=== PATIENT | female | born 1945 | race American Indian/Alaskan Native ===

== ENCOUNTER 2021-05-08 09:18 | Inpatient (IN) | payer MEDICAID, MEDICARE ==
--- NOTE | 2021-05-08 09:26 | Emergency Department Report ---
ED Psych HPI - General Stated Complaint: SUICIDAL Time Seen by Provider: 05/08/21 09:23 Source: patient, EMS Mode of arrival: Ambulatory Limitations: No Limitations - History of Present Illness Initial Comments: Chief complaint: Suicide attempt HPI: This is a 75-year-old female with history of epilepsy, hypertension, GERD, CVA, obesity who presents with suicide attempt, acute depression. Patient told SNF nurse that she wanted to . She was found with a cord around around her neck twice during the night. THe first attempt, patient had the cord of the call button around her neck. Second attempt: she had an electric cord around her neck. She was recently started on mood stabilizer Seroquel. Patient currently resides at [facility]. Patient denies any pain or discomfort. Patient is evasive when asked if she desires to . She currently denies suicide attempt. I have reviewed medication list provided by [facility]. I spoke with granddaughter [phone] Mrs Salgado, She is POA. She provided the following history. February 2021: Patient experienced CVA. Mar 18, 2021 - 2021 Admitted to [facility], Had GI problems with vomiting and diarrhea. Stroke occurred while admitted to hospital. Cerebellar CVA. Has had recurrent UTI including MRSA. Normal EGD. While admitted to the hospital, patient had mood changes. She had paranoia. She thought that someone was in the closet. She began calling out the names of relatives. She was discharged from [facility] May 05. She has b een at [facility] for the past 3 days. MD Complaint: suicidal ideation, altered mental status -: days(s) (2 days) Associated Psychiatric Symptoms: depression, suicidal ideation Improves With: none Worsens With: none Associated Symptoms: denies other symptoms If Self Harm: has acted on plan - Related Data Allergies Allergy/AdvReac Type Severity Reaction Status Date / Time cheese Allergy Hives Verified 05/08/21 15:38 Milk Containing Products Allergy Hives Verified 05/08/21 15:38 tree nut Allergy Hives Verified 05/08/21 15:38 ED Review of Systems ROS: Stated complaint: SUICIDAL Other details as noted in HPI Comment: All other systems reviewed and negative Constitutional: denies: chills, fever, malaise Respiratory: denies: cough, shortness of breath Cardiovascular: denies: chest pain Psychiatric: depression, suicidal thoughts ED Past Medical Hx - Past Medical History Previous Medical History?: Yes Hx Hypertension: Yes Hx GERD: Yes Hx Seizures: Yes - Surgical History Past Surgical History?: No - Family History Family history: other (Noncontributory to this presentation) - Social History Smoking Status: Never Smoker Substance Use Type: None ED Physical Exam - General General appearance: alert, in no apparent distress - Head Head exam: Present: atraumatic, normocephalic - Eye Eye exam: Present: normal appearance - ENT ENT exam: Present: mucous membranes moist - Neck Neck exam: Present: normal inspection, full ROM - Respiratory Respiratory exam: Present: normal lung sounds bilaterally. Absent: respiratory distress, wheezes, rales, rhonchi - Cardiovascular Cardiovascular Exam: Present: regular rate, normal rhythm, normal heart sounds. Absent: systolic murmur, diastolic murmur, rubs, gallop - GI/Abdominal GI/Abdominal exam: Present: soft, normal bowel sounds. Absent: distended, tenderness, guarding, rebound - Extremities Exam Extremities exam: Present: normal inspection - Neurological Exam Neurological exam: Present: alert, oriented X3 - Psychiatric Psychiatric exam: Present: depressed, flat affect, suicidal ideation - Skin Skin exam: Present: warm, dry, intact, normal color. Absent: rash ED Course Vital Signs 05/08/21 05/08/21 05/08/21 09:26 13:24 14:00 Temperature 97.9 F Pulse Rate 85 Respiratory 16 Rate Blood Pressure 121/62 Blood Pressure 170/90 [Left] O2 Sat by Pulse 98 100 100 Oximetry 05/08/21 05/08/21 05/08/21 15:00 15:46 16:00 Temperature Pulse Rate Respiratory Rate Blood Pressure 113/61 120/67 Blood Pressure [Left] O2 Sat by Pulse 100 100 99 Oximetry 05/08/21 05/08/21 05/08/21 17:00 18:27 19:00 Temperature Pulse Rate 80 Respiratory 14 Rate Blood Pressure 116/57 116/57 116/57 Blood Pressure [Left] O2 Sat by Pulse 89 100 Oximetry 05/08/21 05/08/21 05/08/21 20:00 21:00 22:00 Temperature Pulse Rate 92 H 81 81 Respiratory 16 16 13 Rate Blood Pressure 116/57 137/68 127/82 Blood Pressure [Left] O2 Sat by Pulse Oximetry 05/08/21 05/09/21 05/09/21 23:00 00:00 01:00 Temperature Pulse Rate 81 83 85 Respiratory 12 15 18 Rate Blood Pressure 138/70 134/82 118/65 Blood Pressure [Left] O2 Sat by Pulse Oximetry 05/09/21 05/09/21 05/09/21 02:00 03:00 04:00 Temperature Pulse Rate 84 94 H 95 H Respiratory 18 13 16 Rate Blood Pressure 126/77 126/77 71/55 Blood Pressure [Left] O2 Sat by Pulse Oximetry 05/09/21 05/09/21 05/09/21 05:00 06:00 07:00 Temperature Pulse Rate 90 93 H 92 H Respiratory 19 13 19 Rate Blood Pressure 124/54 136/57 152/68 Blood Pressure [Left] O2 Sat by Pulse 98 100 100 Oximetry 05/09/21 07:36 Temperature Pulse Rate 93 H Respiratory 23 Rate Blood Pressure Blood Pressure 137/70 [Left] O2 Sat by Pulse 100 Oximetry - Reevaluation(s) Reevaluation #1: 05/08/21 11:29 Patient is currently crying uncontrollably. I have ordered 1 mg Ativan iv 05/08/21 11:30 ED Medical Decision Making - Lab Data Result diagrams: 05/08/21 09:37 05/08/21 09:37 - EKG Data 05/08/21 13:00 - Medical Decision Making Ms. Tovar presents with acute depression paranoia new changes for the last several weeks since hospitalization. [facility]. CBC reflects mild anemia without leukocytosis. Acet aminophen at therapeutic levels. I do not suspect acetaminophen toxicity since patient has been under medical supervision since February. 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 She is not eligible for geriatric psychiatric unit. Patient will be admitted to the hospital service for acute encephalopathy, UTI. Patient has had several outbursts while observed over the 22-hour. Concern for delirium due to infection. Critical care attestation.: If time is entered above; I have spent that time in minutes in the direct care of this critically ill patient, excluding procedure time. ED Disposition Clinical Impression: Acute encephalopathy, UTI (urinary tract infection) Disposition: ADMITTED INPATIENT Is pt being admited?: Yes Does the pt Need Aspirin: No Condition: Stable
[2021-05-08 10:01] LABS: Basophils % (Auto) 0.2 % (0.0-1.8); Eosinophils # (Auto) 0.2 K/mm3 (0.0-0.4); Eosinophils % (Auto) 3.2 % (0.0-4.3); Hemoglobin 8.6 gm/dl (10.1-14.3); Lymphocytes % (Auto) 17.8 % (13.4-35.0); Mean Corpuscular HGB Conc 32 % (30-34); Mean Corpuscular Volume 88 fl (79-97); Monocytes # (Auto) 0.4 K/mm3 (0.0-0.8); Monocytes % (Auto) 6.8 % (0.0-7.3); Platelet Count 322 K/mm3 (140-440); Red Blood Count 3.08 M/mm3 (3.65-5.03); Red Cell Distribution Width 16.3 % (13.2-15.2)
[2021-05-08 10:19] LABS: Calcium 8.8 mg/dL (8.4-10.2)
[2021-05-08] MEDS: LORazepam 2 MG/ML VIAL IV ONE ×2 (13:26→14:00)
[2021-05-08 19:42] LABS: Amphetamine Screen,Urine Negative; Benzodiazepines Screen,Urine Negative; Cocaine Screen,Urine Negative; Methadone Screen,Urine Negative; Opiate Screen,Urine Negative
[2021-05-08 19:54] LABS: Bacteria,Urine 1+ /HPF (Negative); Bilirubin,Urine NEG (Negative); Blood,Urine SM (Negative); Color,Urine Yellow (Yellow); Mucus,Urine 2+ /HPF; Urobilinogen,Urine < 2.0 mg/dL (<2.0)
[2021-05-08 19:55] LABS: WBC,Urine > 182.0 /HPF (0.0-6.0)
[2021-05-08 20:02] LABS: Cannabinoid Screen,Urine PRESUMPTIVE POSITIVE
[2021-05-09] MEDS ORDERED: ZIPRASIDONE MESYLATE 20 MG VIAL IM ONE (04:17)
--- NOTE | 2021-05-09 04:19 | Emergency Department Report ---
Blank Doc - Documentation Documentation: Patient has become more restless and agitated tonight. She had previously been given Ativan 1 mg. I did review the patient's chart. She has no contraindication to an antipsychotic and Geodon was ordered. I reviewed her labs. She does have evidence of urinary tract infection so cephalexin was also initiated.
[2021-05-09] MEDS: cephALEXin 500 MG CAP PO SCH ×2 (04:44→09:59)
[2021-05-09] MEDS ORDERED: ACETAMINOPHEN 325 MG TAB PO PRN ×3 (09:28→17:07)
[2021-05-09] MEDS ORDERED: ONDANSETRON 4 MG/2 ML INJ IV PRN ×2 (09:28→17:07)
[2021-05-09] MEDS ORDERED: DICYCLOMINE 10 MG CAP PO PRN (09:35)
[2021-05-09] MEDS ORDERED: SENNOSIDES 8.6 MG TAB PO PRN (09:39)
--- NOTE | 2021-05-09 09:43 | History and Physical Report ---
History of Present Illness Date of examination: 05/09/21 Date of admission: 05/09/2021 Chief complaint: Attempted suicide x2 sepsis with UTI History of present illness: 75-year-old female with past history of hypertension, GERD, obesity, CVA in recent past February 2021 and now was recently transferred to [facility] halfway facility. Patient transferred there on May 05. After being there 1 to 2 days patient was noted to have an extension cord around neck saying that she wanted to kill herself. After a brief episode of redirection patient then tried to put another cord around her neck and therefore was sent out for suicidal ideations. Upon presentation to the ED patient was found to have significant pyuria and UTI and therefore was admitted to medicine services for treatment of UTI and physical exam for possible psych placement. Patient at pres ent will mention her name and just start crying out. Patient was saying she sees her mother and that she still here and will just burst out in tears. Patient recently started on Seroquel 25 mg upon presentation to the halfway facility because of similar behavior. Patient unable to tell me whether she is depressed. Unable to really tell me where she is. She will say she feels okay and then starts crying. Patient denies chest pain denies any shortness of breath no fever chills no nausea vomiting. However very poor historian Past History Past Medical History: GERD, hypertension, stroke, other (Psychiatric disorder cognitive impairment) Past Surgical History: No surgical history Social history: other ([facility] facility recent hospitalization March 16 positive for marijuana). denies: alcohol abuse Family history: other (Unknown at this time.) Medications and Allergies Allergies Allergy/AdvReac Type Severity Reaction Status Date / Time cheese Allergy Hives Verified 05/08/21 15:38 Milk Containing Products Allergy Hives Verified 05/08/21 15:38 tree nut Allergy Hives Verified 05/08/21 15:38 Home Medications Medication Instructions Recorded Confirmed Last Taken Type Acetaminophen [Tylenol] 650 mg PO Q6H PRN 05/09/21 05/09/21 Unknown History Amlodipine Besylate [Norvasc] 5 mg PO DAILY 05/09/21 05/09/21 Unknown History Atorvastatin [Lipitor Tab] 40 mg PO QHS 05/09/21 05/09/21 Unknown History Cyanocobalamin (Vitamin B-12) 500 mcg PO DAILY 05/09/21 05/09/21 Unknown History [Vitamin B-12] Dicyclomine [Bentyl] 10 mg PO BID PRN 05/09/21 05/09/21 Unknown History HYDROcodone/ACETAMINOPHEN 5 - 325 mg PO Q12H PRN 05/09/21 05/09/21 Unknown History [Hydrocodone-Acetamin 2.5-325] Linezolid [Zyvox] 600 mg PO BID 05/09/21 05/09/21 Unknown History Melatonin [Melatonin 3MG TAB] 3 mg PO HS PRN 05/09/21 05/09/21 Unknown History Pantoprazole [Protonix] 40 mg PO BID 05/09/21 05/09/21 Unknown History QUEtiapine [SEROquel] 25 mg PO HS 05/09/21 05/09/21 Unknown History Sennosides [Senna] 8.6 mg PO HS PRN 05/09/21 05/09/21 Unknown History Sucralfate [Carafate] 1 gm PO ACHS 05/09/21 05/09/21 Unknown History Trospium Chloride [Trospium 60 mg PO DAILY 05/09/21 05/09/21 Unknown History Chloride ER] cephALEXin [Keflex] 500 mg PO Q6HR 05/09/21 05/09/21 Unknown History hydrALAZINE [Apresoline TAB] 10 mg PO Q6H 05/09/21 05/09/21 Unknown History levETIRAcetam [Keppra TAB] 500 mg PO BID 05/09/21 05/09/21 Unknown History Active Meds: Active Medications Acetaminophen (Acetaminophen 325 Mg Tab) 650 mg PO Q4H PRN PRN Reason: Pain MILD(1-3)/Fever >100.5/SEE Acetaminophen (Acetaminophen 325 Mg Tab) 650 mg PO Q6H PRN PRN Reason: Pain, Mild (1-3) Hydrocodone Bitart/Acetaminophen (Hydrocodone/Acetaminophen 5-325 Mg Tab) 2 each PO Q6H PRN PRN Reason: Pain, Moderate (4-6) Amlodipine Besylate (Amlodipine 5 Mg Tab) 5 mg PO DAILY [facility] Cephalexin (Cephalexin 500 Mg Cap) 500 mg PO TID MADISYN; Protocol Last Admin: 05/09/21 04:44 Dose: 500 mg Dicyclomine HCl (Dicyclomine 10 Mg Cap) 10 mg PO BID PRN PRN Reason: stomach cramps Docusate Sodium (Docusate Sodium 100 Mg Cap) 100 mg PO BID [facility] Hydralazine HCl (Hydralazine 10 Mg Tab) 10 mg PO Q6H [facility] Sodium Chloride (Nacl 0.9% 1000 Ml) 1,000 mls @ 100 mls/hr IV DIRECT [facility] Ceftriaxone Sodium (Rocephin/Ns 1 Gm/50 Ml) 1 gm in 50 mls @ 100 mls/hr IV Q24H [facility]; Protocol Stop: 05/11/21 10:29 Levetiracetam (Levetiracetam 500 Mg Tab) 500 mg PO BID [facility] Linezolid (Linezolid 600 Mg Tab) 600 mg PO BID [facility]; Protocol Stop: 05/13/21 23:59 Lorazepam (Lorazepam 2 Mg/Ml Vial) 1 mg IV Q6H PRN PRN Reason: Agitation Ondansetron HCl (Ondansetron 4 Mg/2 Ml Inj) 4 mg IV Q8H PRN PRN Reason: Nausea And Vomiting Pantoprazole Sodium (Pantoprazole 40 Mg Tab) 40 mg PO BID [facility] Quetiapine Fumarate (Quetiapine 25 Mg Tab) 25 mg PO HS [facility] Senna (Sennosides 8.6 Mg Tab) 8.6 mg PO HS PRN PRN Reason: Constipation Sodium Chloride (Sodium Chloride 0.9% 10 Ml Flush Syringe) 10 ml IV BID [facility] Sodium Chloride (Sodium Chloride 0.9% 10 Ml Flush Syringe) 10 ml IV PRN PRN PRN Reason: LINE FLUSH Review of Systems Constitutional: other (Very difficult to obtain secondary to mood and cognitive impairment.) Ears, nose, mouth and throat: no ear pain, no mouth pain Cardiovascular: no chest pain, no orthopnea, no palpitations, no rapid/irregular heart beat, no syncope, no lightheadedness, no shortness of breath, no dyspnea on exertion Respiratory: no cough, no cough with sputum, no hemoptysis Gastrointestinal: no abdominal pain, no nausea, no change in bowel habits, no early satiety Genitourinary Female: dysuria, other (Burning upon urination.) Musculoskeletal: low back pain, no neck pain, no shooting arm pain, no shooting leg pain, no redness of joints, no morning stiffness, no muscle cramps, no myalgias Neurological: weakness, lack of coordination, no head injury, no transient paralysis, no paralysis, no parathesias, no numbness, no tingling, no seizures, no syncope, no tremors, no ataxia, no vertigo, no convulsions, no aphasia, no change in speech, no change in mentation, no memory loss, no loss of vision, no hearing difficulties, no paralysis, no spasticity Psychiatric: anxiety, change in sleep habits, suicidal ideation, hallucinations, anhedonia, sadness/tearfullness, no disorientation, no depression, no hopelessness, no anxiety attacks, no difficulties concentrating, no confusion Endocrine: no excessive thirst, no nocturia, no high blood sugars Exam - Constitutional Vitals: Temp Pulse Resp BP Pulse Ox 97.9 F 93 H 23 137/70 100 05/08/21 09:26 05/09/21 07:36 05/09/21 07:36 05/09/21 07:36 05/09/21 07:36 General appearance: Present: no acute distress, well-nourished - EENT Eyes: Present: PERRL ENT: hearing intact, clear oral mucosa - Neck Neck: Present: supple, normal ROM - Respiratory Respiratory effort: normal Respiratory: bilateral: CTA - Cardiovascular Heart Sounds: Present: S1 & S2. Absent: rub, click - Extremities Extremities: pulses symmetrical, No edema Peripheral Pulses: within normal limits - Abdominal General gastrointestinal: Present: soft, non-tender, non-distended, normal bowel sounds Female genitourinary: Present: normal - Integumentary Integumentary: Present: clear, warm, dry - Musculoskeletal Musculoskeletal: gait normal, strength equal bilaterally - Psychiatric Psychiatric: appropriate mood/affect, intact judgment & insight - Neurologic Neurologic: CNII-XII intact, moves all extremities Results - Labs CBC & Chem 7: 05/08/21 09:37 05/08/21 09:37 Labs: Laboratory Last Values WBC 5.5 K/mm3 (4.5-11.0) 05/08/21 09:37 RBC 3.08 M/mm3 (3.65-5.03) L 05/08/21 09:37 Hgb 8.6 gm/dl (10.1-14.3) L 05/08/21 09:37 Hct 27.0 % (30.3-42.9) L 05/08/21 09:37 MCV 88 fl (79-97) 05/08/21 09:37 MCH 28 pg (28-32) 05/08/21 09:37 MCHC 32 % (30-34) 05/08/21 09:37 RDW 16.3 % (13.2-15.2) H 05/08/21 09:37 Plt Count 322 K/mm3 (140-440) 05/08/21 09:37 Lymph % (Auto) 17.8 % (13.4-35.0) 05/08/21 09:37 [place] % (Auto) 6.8 % (0.0-7.3) 05/08/21 09:37 Eos % (Auto) 3.2 % (0.0-4.3) 05/08/21 09:37 Baso % (Auto) 0.2 % (0.0-1.8) 05/08/21 09:37 Lymph # (Auto) 1.0 K/mm3 (1.2-5.4) L 05/08/21 09:37 [place] # (Auto) 0.4 K/mm3 (0.0-0.8) 05/08/21 09:37 Eos # (Auto) 0.2 K/mm3 (0.0-0.4) 05/08/21 09:37 Baso # (Auto) 0.0 K/mm3 (0.0-0.1) 05/08/21 09:37 Seg Neutrophils % 72.0 % (40.0-70.0) H 05/08/21 09:37 Seg Neutrophils # 4.0 K/mm3 (1.8-7.7) 05/08/21 09:37 Sodium 143 mmol/L (137-145) 05/08/21 09:37 Potassium 3.3 mmol/L (3.6-5.0) L 05/08/21 09:37 Chloride 105.2 mmol/L (98-107) 05/08/21 09:37 Carbon Dioxide 22 mmol/L (22-30) 05/08/21 09:37 Anion Gap 19 mmol/L 05/08/21 09:37 BUN 25 mg/dL (7-17) H 05/08/21 09:37 Creatinine 1.8 mg/dL (0.6-1.2) H 05/08/21 09:37 Estimated GFR 28 ml/min 05/08/21 09:37 BUN/Creatinine Ratio 14 % 05/08/21 09:37 Glucose 112 mg/dL (65-100) H 05/08/21 09:37 Calcium 8.8 mg/dL (8.4-10.2) 05/08/21 09:37 Urine Color Yellow (Yellow) 05/08/21 19:05 Urine Turbidity Turbid (Clear) 05/08/21 19:05 Urine pH 6.0 (5.0-7.0) 05/08/21 19: Ur Specific [place] 1.013 (1.003-1.030) 05/08/21 19: Urine Protein 100 mg/dl mg/dL (Negative) 05/08/21 19: Urine Glucose (UA) Neg mg/dL (Negative) 05/08/21 19: Urine Ketones Neg mg/dL (Negative) 05/08/21 19: Urine Blood Sm (Negative) 05/08/21 19: Urine Nitrite Neg (Negative) 05/08/21 19: Urine Bilirubin Neg (Negative) 05/08/21 19: Urine Urobilinogen < 2.0 mg/dL (<2.0) 05/08/21 19:05 Ur Leukocyte Esterase Mod (Negative) 05/08/21 19:05 Urine WBC (Auto) > 182.0 /HPF (0.0-6.0) H 05/08/21 19: Urine RBC (Auto) 31.0 /HPF (0.0-6.0) 05/08/21 19:05 Urine Bacteria (Auto) 1+ /HPF (Negative) 05/08/21 19: Urine WBC Clumps 3+ /HPF 05/08/21 19: Urine Mucus 2+ /HPF 05/08/21 19: Salicylates 0.3 mg/dL (2.8-20.0) L 05/08/21 09:37 Urine Opiates Screen Negative 05/08/21 19:05 Urine Methadone Screen Negative 05/08/21 19: Acetaminophen 12.2 ug/mL (10.0-30.0) 05/08/21 09:37 Ur Barbiturates Screen Negative 05/08/21 19:05 Ur Phencyclidine Scrn Negative 05/08/21 19:05 Ur Amphetamines Screen Negative 05/08/21 19:05 U Benzodiazepines Scrn Negative 05/08/21 19:05 Urine Cocaine Screen Negative 05/08/21 19:05 U Marijuana (THC) Screen Presumptive positive 05/08/21 19:05 Drugs of Abuse Note Disclamer 05/08/21 19:05 Plasma/Serum Alcohol < 0.01 % (0-0.07) 05/08/21 09:37 Assessment and Plan Advance Directives: No (Cognitive impairment.) VTE prophylaxis?: Chemical - Patient Problems (1) Suicidal ideations Current Visit: Yes Status: Acute Plan to address problem: Patient currently with suicidal ideations. Has both visual and auditory hallucinations at this time. Recently started on Seroquel however has only been 1 to 2 days. Patient here for suicide attempt x2. Would have been unable to carry out this in nursing facility where she was would have been very difficult. Patient unable to tell me whether she sat now says she just wants to talk to her family. Patient remains on 1013. Being followed by psychiatry. (2) Acute encephalopathy Current Visit: Yes Status: Acute Plan to address problem: Most likely secondary to underlying UTI. In combination with mental illness and potential dementia given the severity of her cognitive impairment Treat underlying etiology of UTI with Rocephin. Will require most likely urine culture because patient gives history of having urinary tract infection in the past. -Blood culture -Urine culture -Of note we will continue Zyvox. We are not really sure why patient was being treated with Zyvox. Just transferred from one hospital to halfway facility. This information was not passed on. We will continue this I do not see lesions on current skin that would think patient will have staph infection therefore we will continue this for 5 days. And will obtain old records to find out why patient was being treated. And for how long the requirements may be. (3) UTI (urinary tract infection) Current Visit: Yes Status: Acute Plan to address problem: Rocephin 1 g I IV Continue to follow culture data blood in urine. (4) History of CVA (cerebrovascular accident) Current Visit: Yes Status: Acute Plan to address problem: At present risk factors well controlled. Will obtain lipid panel. Patient blood pressure 133/71 without antihypertensives. Which will initiate antihypertensive with pressures are supportive We will continue antilipid therapy for now. (5) Hypertension Current Visit: Yes Status: Acute Plan to address problem: Patient maintains adequate control despite no blood pressure medicines at this time. We will reintroduce as blood pressure supports Will start amlodipine 5 mg now and titrate accordingly. (6) Hyperlipidemia Current Visit: Yes Status: Acute Plan to address problem: Atorvastatin 20 mg daily. (7) Seizure disorder Current Visit: Yes Status: Acute Plan to address problem: No recent seizure no evidence of potential postictal state. Keppra 500 mg twice daily.
[2021-05-09] MEDS: amLODIPine 5 MG TAB PO SCH (10:13)
[2021-05-09] MEDS: DOCUSATE SODIUM 100 MG CAP PO SCH ×2 (10:13→23:01)
[2021-05-09] MEDS: PANTOPRAZOLE 40 MG TAB PO SCH ×2 (10:13→22:47)
[2021-05-09] MEDS: levETIRAcetam 500 MG TAB PO SCH ×2 (10:13→22:45)
--- NOTE | 2021-05-09 10:40 | Consultation ---
History of Present Illness - Reason for Consult Consult date: 05/09/21 Reason for consult: suicide attempt - Chief Complaint Chief complaint: Attempted suicide x2 sepsis with UTI - History of Present Psychiatric Illness HPI: This is a 75-year-old female with history of epilepsy, hypertension, GERD, CVA, obesity who presents with suicide attempt, acute depression. Patient told SNF nurse that she wanted to . She was found with a cord around around her neck twice during the night. THe first attempt, patient had the cord of the call button around her neck. Second attempt: she had an electric cord around her neck. She was recently started on mood stabilizer Seroquel. Patient currently resides at [facility]. Patient denies any pain or discomfort. Patient is evasive when asked if she desires to . She currently denies suicide attempt. The patient was seen today. She is a 75y/o female who presented from [facility] for attempting to commit suicide. The patient suffers from depression. During my evaluation, the patient has staff at bedside attempting to start an IV. She is crying. She appears anxious and afraid. She is confused. PAST PSYCHIATRIC HISTORY: unable to obtain PAST MEDICAL HISTORY: None reported Family Psychiatric History None reported SOCIAL HISTORY Unable to obtain ROS: Unable to obtain MENTAL STATUS EXAMINATION Unable to obtain Assessment and Plan (1) Major Depressive Disorder Treatment Plan 1013 Start Klonopin 0.25mg po BID x 3 days Start Remeron 7.5mg po qhs Start Lexapro 5mg po daily Agree with prn lorazepam and seroquel qhs Risks, benefits and alternatives of medications discussed with the patient, questions answered and consent obtained from patient. PSYCHOTHERAPY: Supportive psychotherapy provided MEDICAL: Per primary team DELIRIUM PRECAUTIONS: Please re-orient patient frequently, keep lights on during the day, and minimize benzodiazepines and opiates as these medications could worsen patient's confusion. 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 Please contact with any questions and/or concerns. Case staffed with Dr. Lowery Medications and Allergies Allergies Allergy/AdvReac Type Severity Reaction Status Date / Time cheese Allergy Hives Verified 05/08/21 15:38 Milk Containing Products Allergy Hives Verified 05/08/21 15:38 tree nut Allergy Hives Verified 05/08/21 15:38 Home Medications Medication Instructions Recorded Confirmed Last Taken Type Acetaminophen [Tylenol] 650 mg PO Q6H PRN 05/09/21 05/09/21 Unknown History Amlodipine Besylate [Norvasc] 5 mg PO DAILY 05/09/21 05/09/21 Unknown History Atorvastatin [Lipitor Tab] 40 mg PO QHS 05/09/21 05/09/21 Unknown History Cyanocobalamin (Vitamin B-12) 500 mcg PO DAILY 05/09/21 05/09/21 Unknown History [Vitamin B-12] Dicyclomine [Bentyl] 10 mg PO BID PRN 05/09/21 05/09/21 Unknown History HYDROcodone/ACETAMINOPHEN 5 - 325 mg PO Q12H PRN 05/09/21 05/09/21 Unknown History [Hydrocodone-Acetamin 2.5-325] Linezolid [Zyvox] 600 mg PO BID 05/09/21 05/09/21 Unknown History Melatonin [Melatonin 3MG TAB] 3 mg PO HS PRN 05/09/21 05/09/21 Unknown History Pantoprazole [Protonix] 40 mg PO BID 05/09/21 05/09/21 Unknown History QUEtiapine [SEROquel] 25 mg PO HS 05/09/21 05/09/21 Unknown History Sennosides [Senna] 8.6 mg PO HS PRN 05/09/21 05/09/21 Unknown History Sucralfate [Carafate] 1 gm PO ACHS 05/09/21 05/09/21 Unknown History Trospium Chloride [Trospium 60 mg PO DAILY 05/09/21 05/09/21 Unknown History Chloride ER] cephALEXin [Keflex] 500 mg PO Q6HR 05/09/21 05/09/21 Unknown History hydrALAZINE [Apresoline TAB] 10 mg PO Q6H 05/09/21 05/09/21 Unknown History levETIRAcetam [Keppra TAB] 500 mg PO BID 05/09/21 05/09/21 Unknown History Active Meds: Active Medications Acetaminophen (Acetaminophen 325 Mg Tab) 650 mg PO Q4H PRN PRN Reason: Pain MILD(1-3)/Fever >100.5/SEE Hydrocodone Bitart/Acetaminophen (Hydrocodone/Acetaminophen 5-325 Mg Tab) 2 each PO Q6H PRN PRN Reason: Pain, Moderate (4-6) Amlodipine Besylate (Amlodipine 5 Mg Tab) 5 mg PO DAILY [facility] Last Admin: 05/09/21 10:13 Dose: 5 mg Dicyclomine HCl (Dicyclomine 10 Mg Cap) 10 mg PO BID PRN PRN Reason: stomach cramps Docusate Sodium (Docusate Sodium 100 Mg Cap) 100 mg PO BID [facility] Last Admin: 05/09/21 10:13 Dose: 100 mg Hydralazine HCl (Hydralazine 10 Mg Tab) 10 mg PO Q6H [facility] Sodium Chloride (Nacl 0.9% 1000 Ml) 1,000 mls @ 100 mls/hr IV DIRECT MADISYN Ceftriaxone Sodium (Rocephin/Ns 1 Gm/50 Ml) 1 gm in 50 mls @ 100 mls/hr IV Q24H [facility]; Protocol Stop: 05/11/21 12:29 Levetiracetam (Levetiracetam 500 Mg Tab) 500 mg PO BID [facility] Last Admin: 05/09/21 10:13 Dose: 500 mg Linezolid (Linezolid 600 Mg Tab) 600 mg PO BID [facility]; Protocol Stop: 05/13/21 10:59 Lorazepam (Lorazepam 2 Mg/Ml Vial) 1 mg IV Q6H PRN PRN Reason: Agitation Ondansetron HCl (Ondansetron 4 Mg/2 Ml Inj) 4 mg IV Q8H PRN PRN Reason: Nausea And Vomiting Pantoprazole Sodium (Pantoprazole 40 Mg Tab) 40 mg PO BID [facility] Last Admin: 05/09/21 10:13 Dose: 40 mg Quetiapine Fumarate (Quetiapine 25 Mg Tab) 25 mg PO HS [facility] Senna (Sennosides 8.6 Mg Tab) 8.6 mg PO HS PRN PRN Reason: Constipation Sodium Chloride (Sodium Chloride 0.9% 10 Ml Flush Syringe) 10 ml IV BID [facility] Last Admin: 05/09/21 10:14 Dose: 10 ml Sodium Chloride (Sodium Chloride 0.9% 10 Ml Flush Syringe) 10 ml IV PRN PRN PRN Reason: LINE FLUSH Sucralfate (Sucralfate 1 Gm/10 Ml Oral Liqd) 1 gm PO ACHS [facility] Mental Status Exam - Vital signs Last Vital Signs Temp 97.9 F 05/08/21 09:26 Pulse 93 H 05/09/21 07:36 Resp 23 05/09/21 07:36 BP 137/70 05/09/21 07:36 Pulse Ox 100 05/09/21 07:36 Results Result Diagrams: 05/08/21 09:37 05/08/21 09:37 Abnormal lab results 05/08/21 Range/Units 19:05 Urine WBC (Auto) > 182.0 H (0.0-6.0) /HPF All other labs normal.
[2021-05-09] MEDS: LORazepam 2 MG/ML VIAL IV PRN ×2 (10:41→18:26)
[2021-05-09] MEDS: hydrALAZINE 10 MG TAB PO SCH ×3 (11:30→22:58)
--- NOTE | 2021-05-09 11:37 | Event Note ---
Date: 05/09/21 vss , labs unremarkable , assessed by psych , recommend inpatient psych
[2021-05-09] MEDS: SUCRALFATE 1 GM/10 ML ORAL LIQD PO SCH ×3 (12:09→22:49)
[2021-05-09] MEDS: LINEZOLID 600 MG TAB PO SCH ×2 (12:58→22:58)
[2021-05-09] MEDS: clonazePAM 0.5 MG TAB PO SCH ×2 (12:59→22:49)
[2021-05-09] MEDS: cefTRIAXone/NS 1 GM/50 ML 1 GM/50 ML BAG IV SCH (13:00)
[2021-05-09] MEDS ORDERED: PRAVASTATIN 40 MG TAB PO ONE (14:10)
[2021-05-09] MEDS: ESCITALOPRAM 10 MG TAB PO SCH (16:08)
[2021-05-09] MEDS ORDERED: QUEtiapine 25 MG TAB PO SCH (22:00)
[2021-05-09] MEDS: HEPARIN 5,000 UNIT/1 ML VIAL SUB-Q SCH (22:29)
[2021-05-09] MEDS: MIRTAZAPINE 15 MG TAB PO SCH (22:47)
[2021-05-10 04:59] LABS: Hematocrit 25.2 % (30.3-42.9); Hemoglobin 8.2 gm/dl (10.1-14.3); Mean Corpuscular HGB Conc 33 % (30-34); Mean Corpuscular Volume 88 fl (79-97); Platelet Count 299 K/mm3 (140-440); Red Blood Count 2.87 M/mm3 (3.65-5.03); Red Cell Distribution Width 16.2 % (13.2-15.2)
[2021-05-10 05:14] LABS: Calcium 8.4 mg/dL (8.4-10.2)
[2021-05-10] MEDS: SODIUM CHLORIDE 0.9% 1000 ML 1,000 ML IV SCH ×2 (05:16→23:49)
[2021-05-10] MEDS: hydrALAZINE 10 MG TAB PO SCH ×4 (05:19→21:57)
[2021-05-10 05:58] LABS: Anisocytosis 1+; Basophils % (Manual) 0 % (0.0-1.8); Total Cells Counted 100
[2021-05-10 05:59] LABS: Platelet Estimate Consistent w Auto; Target Cells 1+
[2021-05-10] MEDS: ESCITALOPRAM 10 MG TAB PO SCH (09:02)
[2021-05-10] MEDS: LINEZOLID 600 MG TAB PO SCH ×2 (09:02→21:57)
[2021-05-10] MEDS: clonazePAM 0.5 MG TAB PO SCH ×2 (09:04→21:57)
[2021-05-10] MEDS: levETIRAcetam 500 MG TAB PO SCH ×2 (09:04→21:57)
[2021-05-10] MEDS: SUCRALFATE 1 GM/10 ML ORAL LIQD PO SCH ×4 (09:04→21:57)
[2021-05-10] MEDS: PANTOPRAZOLE 40 MG TAB PO SCH ×2 (09:04→21:57)
[2021-05-10] MEDS: DOCUSATE SODIUM 100 MG CAP PO SCH ×2 (09:05→22:00)
[2021-05-10] MEDS: HEPARIN 5,000 UNIT/1 ML VIAL SUB-Q SCH ×2 (09:05→21:58)
[2021-05-10] MEDS: amLODIPine 5 MG TAB PO SCH (09:06)
--- NOTE | 2021-05-10 11:44 | Progress Note ---
Assessment and Plan Assessment and plan: #Suicidal ideations Patient currently with suicidal ideations. Has both visual and auditory hallucinations at this time. Recently started on Seroquel however has only been 1 to 2 days. Patient here for suicide attempt x2. Would have been unable to carry out this in nursing fac ility where she was would have been very difficult. Patient unable to tell me whether she sat now says she just wants to talk to her family. Patient remains on 1013. Psychiatry consulted appreciate recs. #Acute metabolic encephalopathy #Acute cystitis with hematuria Most likely secondary to underlying UTI. In combination with mental illness and potential dementia given the severity of her cognitive impairment Treat underlying etiology of UTI with Rocephin (complete on 05/11/2021) -Blood culture and urine culture pending -Of note we will continue Zyvox. We are not really sure why patient was being treated with Zyvox. Just transferred from one hospital to alf facility. This information was not passed on. We will continue this I do not see lesions on current skin that would think patient will have staph infection therefore we will continue this for 5 days. And will obtain old records to find out why patient was being treated. And for how long the requirements may be. #History of CVA (cerebrovascular accident) At present risk factors well controlled. Will obtain lipid panel. Patient blood pressure 133/71 without antihypertensives. Which will initiate antihypertensive with pressures are supportive We will continue lipid therapy for now. #Hypertension #Hyperlipidemia Continue amlodipine 5 mg daily and atorvastatin 20 mg daily Continue to monitor #Seizure disorder No recent seizure no evidence of potential postictal state. Continue Keppra 500 mg twice daily. #Advanced care planning -Disease education conducted, care plan discussed, diagnoses discussed, prognosis discussed, and patient acknowledges understanding with care plan -Time: +30 min Disposition Plan: Continue medical management Total Time Spent with Patient (Minutes): 30 minutes History Interval history: No acute events overnight. Hospitalist Physical - Constitutional Vitals: Temp Pulse Resp BP Pulse Ox 98.1 F 83 16 156/74 99 05/10/21 05:11 05/10/21 05:19 05/10/21 05:11 05/10/21 09:07 05/10/21 05:11 General appearance: Present: no acute distress, well-nourished, obese - EENT Eyes: Present: PERRL, EOM intact ENT: hearing intact, clear oral mucosa - Neck Neck: Present: supple, normal ROM - Respiratory Respiratory effort: normal Respiratory: bilateral: CTA - Cardiovascular Rhythm: regular Heart Sounds: Present: S1 & S2 - Extremities Extremities: no ischemia, pulses intact, pulses symmetrical, No edema, normal temperature, normal color Peripheral Pulses: within normal limits - Abdominal General gastrointestinal: soft, non-tender, non-distended, normal bowel sounds - Integumentary Integumentary: Present: clear, warm, dry - Psychiatric Psychiatric: cooperative - Neurologic Neurologic: other (Alert and oriented x1) - Allied Health Allied health notes reviewed: nursing Results - Labs CBC & Chem 7: 05/10/21 04:19 05/10/21 04:19 Labs: Laboratory Last Values WBC 5.6 K/mm3 (4.5-11.0) 05/10/21 04:19 RBC 2.87 M/mm3 (3.65-5.03) L 05/10/21 04:19 Hgb 8.2 gm/dl (10.1-14.3) L 05/10/21 04:19 Hct 25.2 % (30.3-42.9) L 05/10/21 04:19 MCV 88 fl (79-97) 05/10/21 04:19 MCH 29 pg (28-32) 05/10/21 04:19 MCHC 33 % (30-34) 05/10/21 04:19 RDW 16.2 % (13.2-15.2) H 05/10/21 04:19 Plt Count 299 K/mm3 (140-440) 05/10/21 04:19 Lymph % (Auto) 17.8 % (13.4-35.0) 05/08/21 09:37 [place] % (Auto) 6.8 % (0.0-7.3) 05/08/21 09:37 Eos % (Auto) 3.2 % (0.0-4.3) 05/08/21 09:37 Baso % (Auto) 0.2 % (0.0-1.8) 05/08/21 09:37 Lymph # (Auto) 1.0 K/mm3 (1.2-5.4) L 05/08/21 09:37 [place] # (Auto) 0.4 K/mm3 (0.0-0.8) 05/08/21 09:37 Eos # (Auto) 0.2 K/mm3 (0.0-0.4) 05/08/21 09:37 Baso # (Auto) 0.0 K/mm3 (0.0-0.1) 05/08/21 09:37 Add Manual Diff Complete 05/10/21 04:19 Total Counted 100 05/10/21 04:19 Seg Neutrophils % 72.0 % (40.0-70.0) H 05/08/21 09:37 Seg Neuts % (Manual) 61.0 % (40.0-70.0) 05/10/21 04:19 Band Neutrophils % 0 % 05/10/21 04:19 Lymphocytes % (Manual) 28.0 % (13.4-35.0) 05/10/21 04:19 Reactive Lymphs % (Man) 0 % 05/10/21 04:19 Monocytes % (Manual) 7.0 % (0.0-7.3) 05/10/21 04:19 Eosinophils % (Manual) 4.0 % (0.0-4.3) 05/10/21 04:19 Basophils % (Manual) 0 % (0.0-1.8) 05/10/21 04:19 Metamyelocytes % 0 % 05/10/21 04:19 Myelocytes % 0 % 05/10/21 04:19 Promyelocytes % 0 % 05/10/21 04:19 Blast Cells % 0 % 05/10/21 04:19 Nucleated RBC % Not Reportable 05/10/21 04:19 Seg Neutrophils # 4.0 K/mm3 (1.8-7.7) 05/08/21 09:37 Seg Neutrophils # Man 3.4 K/mm3 (1.8-7.7) 05/10/21 04:19 Band Neutrophils # 0.0 K/mm3 05/10/21 04:19 Lymphocytes # (Manual) 1.6 K/mm3 (1.2-5.4) 05/10/21 04:19 Abs React Lymphs (Man) 0.0 K/mm3 05/10/21 04:19 Monocytes # (Manual) 0.4 K/mm3 (0.0-0.8) 05/10/21 04:19 Eosinophils # (Manual) 0.2 K/mm3 (0.0-0.4) 05/10/21 04:19 Basophils # (Manual) 0.0 K/mm3 (0.0-0.1) 05/10/21 04:19 Metamyelocytes # 0.0 K/mm3 05/10/21 04:19 Myelocytes # 0.0 K/mm3 05/10/21 04:19 Promyelocytes # 0.0 K/mm3 05/10/21 04:19 Blast Cells # 0.0 K/mm3 05/10/21 04:19 WBC Morphology Not Reportable 05/10/21 04:19 Hypersegmented Neuts Not Reportable 05/10/21 04:19 Hyposegmented Neuts Not Reportable 05/10/21 04:19 Hypogranular Neuts Not Reportable 05/10/21 04:19 Smudge Cells Not Reportable 05/10/21 04:19 Toxic Granulation Not Reportable 05/10/21 04:19 Toxic Vacuolation Not Reportable 05/10/21 04:19 Dohle Bodies Not Reportable 05/10/21 04:19 Pelger-Huet Anomaly Not Reportable 05/10/21 04:19 Ward Rods Not Reportable 05/10/21 04:19 Platelet Estimate Consistent w auto 05/10/21 04:19 Clumped Platelets Not Reportable 05/10/21 04:19 Plt Clumps, EDTA Not Reportable 05/10/21 04:19 Large Platelets Not Reportable 05/10/21 04:19 Giant Platelets Not Reportable 05/10/21 04:19 Platelet Satelliting Not Reportable 05/10/21 04:19 Plt Morphology Comment Not Reportable 05/10/21 04:19 RBC Morphology Not Reportable 05/10/21 04:19 Dimorphic RBCs Not Reportable 05/10/21 04:19 Polychromasia Not Reportable 05/10/21 04:19 Hypochromasia Not Reportable 05/10/21 04:19 Poikilocytosis Not Reportable 05/10/21 04:19 Anisocytosis 1+ 05/10/21 04:19 Microcytosis Not Reportable 05/10/21 04:19 Macrocytosis Not Reportable 05/10/21 04:19 Spherocytes Not Reportable 05/10/21 04:19 Pappenheimer Bodies Not Reportable 05/10/21 04:19 Sickle Cells Not Reportable 05/10/21 04:19 Target Cells 1+ 05/10/21 04:19 Tear Drop Cells Not Reportable 05/10/21 04:19 Ovalocytes Not Reportable 05/10/21 04:19 Helmet Cells Not Reportable 05/10/21 04:19 Ulloa-Gwinn Bodies Not Reportable 05/10/21 04:19 [place] Rings Not Reportable 05/10/21 04:19 Fabiola Cells Not Reportable 05/10/21 04:19 Bite Cells Not Reportable 05/10/21 04:19 Crenated Cell Not Reportable 05/10/21 04:19 Elliptocytes 1+ 05/10/21 04:19 Acanthocytes (Spur) Not Reportable 05/10/21 04:19 Rouleaux Not Reportable 05/10/21 04:19 Hemoglobin C Crystals Not Reportable 05/10/21 04:19 Schistocytes Not Reportable 05/10/21 04:19 Malaria parasites Not Reportable 05/10/21 04:19 Rodrigo Bodies Not Reportable 05/10/21 04:19 Hem Pathologist Commnt No 05/10/21 04:19 Sodium 146 mmol/L (137-145) H 05/10/21 04:19 Potassium 4.0 mmol/L (3.6-5.0) D 05/10/21 04:19 Chloride 109.8 mmol/L (98-107) H 05/10/21 04:19 Carbon Dioxide 24 mmol/L (22-30) 05/10/21 04:19 Anion Gap 16 mmol/L 05/10/21 04:19 BUN 17 mg/dL (7-17) 05/10/21 04:19 Creatinine 1.3 mg/dL (0.6-1.2) H 05/10/21 04:19 Estimated GFR 49 ml/min 05/10/21 04:19 BUN/Creatinine Ratio 13 % 05/10/21 04:19 Glucose 85 mg/dL (65-100) 05/10/21 04:19 Calcium 8.4 mg/dL (8.4-10.2) 05/10/21 04:19 Urine Color Yellow (Yellow) 05/08/21 19:05 Urine Turbidity Turbid (Clear) 05/08/21 19:05 Urine pH 6.0 (5.0-7.0) 05/08/21 19:05 Ur Specific [place] 1.013 (1.003-1.030) 05/08/21 19:05 Urine Protein 100 mg/dl mg/dL (Negative) 05/08/21 19:05 Urine Glucose (UA) Neg mg/dL (Negative) 05/08/21 19:05 Urine Ketones Neg mg/dL (Negative) 05/08/21 19:05 Urine Blood Sm (Negative) 05/08/21 19:05 Urine Nitrite Neg (Negative) 05/08/21 19:05 Urine Bilirubin Neg (Negative) 05/08/21 19:05 Urine Urobilinogen < 2.0 mg/dL (<2.0) 05/08/21 19:05 Ur Leukocyte Esterase Mod (Negative) 05/08/21 19:05 Urine WBC (Auto) > 182.0 /HPF (0.0-6.0) H 05/08/21 19:05 Urine RBC (Auto) 31.0 /HPF (0.0-6.0) 05/08/21 19:05 Urine Bacteria (Auto) 1+ /HPF (Negative) 05/08/21 19:05 Urine WBC Clumps 3+ /HPF 05/08/21 19:05 Urine Mucus 2+ /HPF 05/08/21 19:05 Salicylates 0.3 mg/dL (2.8-20.0) L 05/08/21 09:37 Urine Opiates Screen Negative 05/08/21 19:05 Urine Methadone Screen Negative 05/08/21 19:05 Acetaminophen 12.2 ug/mL (10.0-30.0) 05/08/21 09:37 Ur Barbiturates Screen Negative 05/08/21 19:05 Ur Phencyclidine Scrn Negative 05/08/21 19:05 Ur Amphetamines Screen Negative 05/08/21 19:05 U Benzodiazepines Scrn Negative 05/08/21 19:05 Urine Cocaine Screen Negative 05/08/21 19:05 U Marijuana (THC) Screen Presumptive positive 05/08/21 19:05 Drugs of Abuse Note Disclamer 05/08/21 19:05 Plasma/Serum Alcohol < 0.01 % (0-0.07) 05/08/21 09:37 Coronavirus (PCR) Negative (Negative) 05/09/21 08:50 Blood Type O POSITIVE 05/09/21 10:20 Antibody Screen Negative 05/09/21 10:20 [place]/IV: Voiding Method External Female Catheter Active Medications - Current Medications Current Medications: Generic Name Dose Route Start Last Admin Trade Name Freq PRN Reason Stop Dose Admin Acetaminophen 650 mg 05/09/21 17:07 Acetaminophen 325 Mg Tab PO Q4H PRN Pain MILD(1-3)/Fever >100.5/SEE Hydrocodone Bitart/Acetaminophen 2 each 05/09/21 09:28 Hydrocodone/Acetaminophen 5-325 Mg Tab PO Q6H PRN Pain, Moderate (4-6) Amlodipine Besylate 5 mg 05/09/21 10:00 05/10/21 09:06 Amlodipine 5 Mg Tab PO 5 mg DAILY MADISYN Administration Clonazepam 0.25 mg 05/09/21 11:00 05/10/21 09:04 Clonazepam 0.5 Mg Tab PO 05/12/21 06:00 0.25 mg BID MADISYN Administration Dicyclomine HCl 10 mg 05/09/21 09:35 Dicyclomine 10 Mg Cap PO BID PRN stomach cramps Docusate Sodium 100 mg 05/09/21 10:00 05/10/21 09:05 Docusate Sodium 100 Mg Cap PO 100 mg BID MADISYN Administration Escitalopram Oxalate 5 mg 05/09/21 11:00 05/10/21 09:02 Escitalopram 10 Mg Tab PO 5 mg QDAY MADISYN Administration Heparin Sodium (Porcine) 5,000 unit 05/09/21 22:00 05/10/21 09:05 Heparin 5,000 Unit/1 Ml Vial SUB-Q 5,000 unit Q12HR MADISYN Administration Hydralazine HCl 10 mg 05/09/21 10:00 05/10/21 09:26 Hydralazine 10 Mg Tab PO 10 mg Q6H MADISYN Administration Sodium Chloride 1,000 mls @ 100 mls/hr 05/09/21 09:30 05/10/21 05:16 Nacl 0.9% 1000 Ml IV 100 mls/hr DIRECT MADISYN Administration Ceftriaxone Sodium 1 gm in 50 mls @ 100 mls/hr 05/09/21 12:00 05/09/21 13:00 Rocephin/Ns 1 Gm/50 Ml IV 05/11/21 12:29 100 mls/hr Q24H MADISYN Administration Protocol Levetiracetam 500 mg 05/09/21 10:00 05/10/21 09:04 Levetiracetam 500 Mg Tab PO 500 mg BID MADISYN Administration Linezolid 600 mg 05/09/21 11:00 05/10/21 09:02 Linezolid 600 Mg Tab PO 05/13/21 10:59 600 mg BID MADISYN Administration Protocol Lorazepam 1 mg 05/09/21 09:28 05/09/21 18:26 Lorazepam 2 Mg/Ml Vial IV 1 mg Q6H PRN Administration Agitation Mirtazapine 7.5 mg 05/09/21 22:00 05/09/21 22:47 Mirtazapine 15 Mg Tab PO 7.5 mg QHS MADISYN Administration Morphine Sulfate 2 mg 05/09/21 17:07 Morphine 2 Mg/1 Ml Inj IV Q4H PRN Pain, Moderate (4-6) Ondansetron HCl 4 mg 05/09/21 09:28 Ondansetron 4 Mg/2 Ml Inj IV Q8H PRN Nausea And Vomiting Ondansetron HCl 4 mg 05/09/21 17:07 Ondansetron 4 Mg/2 Ml Inj IV Q8H PRN Nausea And Vomiting Pantoprazole Sodium 40 mg 05/09/21 10:00 05/10/21 09:04 Pantoprazole 40 Mg Tab PO 40 mg BID MADISYN Administration Quetiapine Fumarate 25 mg 05/09/21 22:00 05/09/21 22:48 Quetiapine 25 Mg Tab PO 25 mg HS MADISYN Administration Senna 8.6 mg 05/09/21 09:39 Sennosides 8.6 Mg Tab PO HS PRN Constipation Sodium Chloride 10 ml 05/09/21 10:00 05/10/21 09:05 Sodium Chloride 0.9% 10 Ml Flush Syringe IV 10 ml BID MADISYN Administration Sodium Chloride 10 ml 05/09/21 09:28 Sodium Chloride 0.9% 10 Ml Flush Syringe IV PRN PRN LINE FLUSH Sodium Chloride 10 ml 05/09/21 22:00 05/10/21 09:06 Sodium Chloride 0.9% 10 Ml Flush Syringe IV Not Given BID MADISYN Sodium Chloride 10 ml 05/09/21 17:07 Sodium Chloride 0.9% 10 Ml Flush Syringe IV PRN PRN LINE FLUSH Sucralfate 1 gm 05/09/21 11:30 05/10/21 09:04 Sucralfate 1 Gm/10 Ml Oral Liqd PO 1 gm ACHS MADISYN Administration
--- NOTE | 2021-05-10 13:08 | Progress Note ---
Subjective - Reason for Consult Consult date: 05/10/21 Reason for consult: suicidal attempt - Chief Complaint Chief complaint: The patient was seen today. A sitter is at bedside. The sitter says the patient is confused and has been talking to herself. Her behavior is sort of bizarre. During my evaluation, the patient is jumping and making weird noises. She says she doesn't feel good. She is talking out loud, but not making sense. The patient denies SI/HI. When I ask her why did she put the cord around her neck, she replies "I was trying to breath." She then makes another weird sound and jumps. She denies hallucinations. ROS: Unable to obtain MENTAL STATUS EXAMINATION Unable to obtain Assessment and Plan (1) Major Depressive Disorder Treatment Plan 1013 Klonopin 0.25mg po BID x 3 days Start Remeron 7.5mg po qhs Increase Lexapro 10mg po daily Increase Seroquel 25mg po BID Agree with prn lorazepam and seroquel qhs Risks, benefits and alternatives of medications discussed with the patient, questions answered and consent obtained from patient. PSYCHOTHERAPY: Supportive psychotherapy provided MEDICAL: Per primary team DELIRIUM PRECAUTIONS: Please re-orient patient frequently, keep lights on during the day, and minimize benzodiazepines and opiates as these medications could worsen patient's confusion. SYRUPER: per primary DISPOSITION: Recommend acute inpatient psychiatric hospitalization Thank you for the consult. Please contact with any questions and/or concerns. Case staffed with Dr. Lowery Mental Status Exam - Vital signs Last Vital Signs Temp 98.1 F 05/10/21 05:11 Pulse 83 05/10/21 05:19 Resp 16 05/10/21 05:11 BP 156/74 05/10/21 09:07 Pulse Ox 99 05/10/21 05:11
[2021-05-10] MEDS: cefTRIAXone/NS 1 GM/50 ML 1 GM/50 ML BAG IV SCH (14:18)
[2021-05-10] MEDS: MIRTAZAPINE 15 MG TAB PO SCH (21:58)
[2021-05-10] MEDS: QUEtiapine 25 MG TAB PO SCH (21:58)
[2021-05-10] MEDS: LORazepam 2 MG/ML VIAL IV PRN (23:48)
[2021-05-11] MEDS: hydrALAZINE 10 MG TAB PO SCH ×4 (05:18→21:51)
[2021-05-11 08:41] LABS: Basophils % (Auto) 0.5 % (0.0-1.8); Eosinophils # (Auto) 0.1 K/mm3 (0.0-0.4); Eosinophils % (Auto) 1.7 % (0.0-4.3); Hemoglobin 8.6 gm/dl (10.1-14.3); Lymphocytes # (Auto) 1.4 K/mm3 (1.2-5.4); Lymphocytes % (Auto) 21.2 % (13.4-35.0); Mean Corpuscular HGB Conc 32 % (30-34); Mean Corpuscular Volume 88 fl (79-97); Monocytes # (Auto) 0.4 K/mm3 (0.0-0.8); Monocytes % (Auto) 5.8 % (0.0-7.3); Platelet Count 372 K/mm3 (140-440); Red Blood Count 3.06 M/mm3 (3.65-5.03); Red Cell Distribution Width 16.3 % (13.2-15.2)
[2021-05-11 09:08] LABS: Calcium 8.3 mg/dL (8.4-10.2)
[2021-05-11] MEDS: amLODIPine 5 MG TAB PO SCH (09:36)
[2021-05-11] MEDS: HEPARIN 5,000 UNIT/1 ML VIAL SUB-Q SCH ×2 (09:36→21:46)
[2021-05-11] MEDS: SUCRALFATE 1 GM/10 ML ORAL LIQD PO SCH ×4 (09:36→21:46)
[2021-05-11] MEDS: levETIRAcetam 500 MG TAB PO SCH ×2 (09:36→21:46)
[2021-05-11] MEDS: ESCITALOPRAM 10 MG TAB PO SCH (09:36)
[2021-05-11] MEDS: PANTOPRAZOLE 40 MG TAB PO SCH ×2 (09:37→21:42)
[2021-05-11] MEDS: QUEtiapine 25 MG TAB PO SCH ×2 (09:37→21:42)
[2021-05-11] MEDS: clonazePAM 0.5 MG TAB PO SCH ×2 (09:37→21:43)
[2021-05-11] MEDS: DOCUSATE SODIUM 100 MG CAP PO SCH ×2 (09:38→21:46)
[2021-05-11] MEDS ORDERED: ESCITALOPRAM 10 MG/10 ML ORAL LIQD PO SCH (10:00)
[2021-05-11] MEDS: LINEZOLID 600 MG TAB PO SCH ×2 (10:51→21:51)
[2021-05-11] MEDS: cefTRIAXone/NS 1 GM/50 ML 1 GM/50 ML BAG IV SCH (13:04)
[2021-05-11] MEDS: HYDROcodone/ACETAMINOPHEN 5-325 MG TAB PO PRN (14:51)
--- NOTE | 2021-05-11 16:12 | Progress Note ---
Assessment and Plan Assessment and plan: #Suicidal ideation -patient denies SI and hallucinations at this time -continue lexapro, seroquel and mirtazipine -continue 1013 status, Psychiatry following, assistance appreciated #Acute metabolic encephalopathy-resolved -patient with underlyind dementia -likely multifactorial given UTI -will continue to monitor #Acute cystitis with hematuria s/p rocephin x3 days -urine culture grew 10-100k mixed manish, likely dirty catch -will treat due to baseline mental status #History of CVA (cerebrovascular accident) At present risk factors well controlled. Will obtain lipid panel. Patient blood pressure 133/71 without antihypertensives. Which will initiate antihypertensive with pressures are supportive We will continue lipid therapy for now. #Hypertension #Hyperlipidemia Continue amlodipine 5 mg daily and atorvastatin 20 mg daily Continue to monitor #Seizure disorder No recent seizure Continue Keppra 500 mg BID Disposition Plan: continue medical management History Interval history: No acute events overnight. Patient confused and asking for her granddaughter. No complaints at this time. Hospitalist Physical - Physical exam Narrative exam: GENERAL: Thin elderly woman. In no acute distress. CHEST/LUNGS: CTAB on room air HEART/CARDIOVASCULAR: RRR. No murmur, rubs or gallops appreciated. ABDOMEN: +BS. NT/ND. SKIN: No rashes noted. NEURO: No focal motor deficit noted. EXTREMITIES: No cyanosis, clubbing or edema. PSYCH: Cooperative. - Constitutional Vitals: Temp Pulse Resp BP Pulse Ox 98 F 81 18 138/72 97 05/11/21 05:30 05/11/21 05:30 05/11/21 05:30 05/11/21 09:42 05/11/21 11:54 General appearance: Present: no acute distress, well-nourished, obese Results - Labs CBC & Chem 7: 05/11/21 08:14 05/11/21 08:14 Labs: Laboratory Last Values WBC 6.6 K/mm3 (4.5-11.0) 05/11/21 08:14 RBC 3.06 M/mm3 (3.65-5.03) L 05/11/21 08:14 Hgb 8.6 gm/dl (10.1-14.3) L 05/11/21 08:14 Hct 27.0 % (30.3-42.9) L 05/11/21 08:14 MCV 88 fl (79-97) 05/11/21 08:14 MCH 28 pg (28-32) 05/11/21 08:14 MCHC 32 % (30-34) 05/11/21 08:14 RDW 16.3 % (13.2-15.2) H 05/11/21 08:14 Plt Count 372 K/mm3 (140-440) 05/11/21 08:14 Lymph % (Auto) 21.2 % (13.4-35.0) 05/11/21 08:14 [place] % (Auto) 5.8 % (0.0-7.3) 05/11/21 08:14 Eos % (Auto) 1.7 % (0.0-4.3) 05/11/21 08:14 Baso % (Auto) 0.5 % (0.0-1.8) 05/11/21 08:14 Lymph # (Auto) 1.4 K/mm3 (1.2-5.4) 05/11/21 08:14 [place] # (Auto) 0.4 K/mm3 (0.0-0.8) 05/11/21 08:14 Eos # (Auto) 0.1 K/mm3 (0.0-0.4) 05/11/21 08:14 Baso # (Auto) 0.0 K/mm3 (0.0-0.1) 05/11/21 08:14 Add Manual Diff Complete 05/10/21 04:19 Total Counted 100 05/10/21 04:19 Seg Neutrophils % 70.8 % (40.0-70.0) H 05/11/21 08:14 Seg Neuts % (Manual) 61.0 % (40.0-70.0) 05/10/21 04:19 Band Neutrophils % 0 % 05/10/21 04:19 Lymphocytes % (Manual) 28.0 % (13.4-35.0) 05/10/21 04:19 Reactive Lymphs % (Man) 0 % 05/10/21 04:19 Monocytes % (Manual) 7.0 % (0.0-7.3) 05/10/21 04:19 Eosinophils % (Manual) 4.0 % (0.0-4.3) 05/10/21 04:19 Basophils % (Manual) 0 % (0.0-1.8) 05/10/21 04:19 Metamyelocytes % 0 % 05/10/21 04:19 Myelocytes % 0 % 05/10/21 04:19 Promyelocytes % 0 % 05/10/21 04:19 Blast Cells % 0 % 05/10/21 04:19 Nucleated RBC % Not Reportable 05/10/21 04:19 Seg Neutrophils # 4.7 K/mm3 (1.8-7.7) 05/11/21 08:14 Seg Neutrophils # Man 3.4 K/mm3 (1.8-7.7) 05/10/21 04:19 Band Neutrophils # 0.0 K/mm3 05/10/21 04:19 Lymphocytes # (Manual) 1.6 K/mm3 (1.2-5.4) 05/10/21 04:19 Abs React Lymphs (Man) 0.0 K/mm3 05/10/21 04:19 Monocytes # (Manual) 0.4 K/mm3 (0.0-0.8) 05/10/21 04:19 Eosinophils # (Manual) 0.2 K/mm3 (0.0-0.4) 05/10/21 04:19 Basophils # (Manual) 0.0 K/mm3 (0.0-0.1) 05/10/21 04:19 Metamyelocytes # 0.0 K/mm3 05/10/21 04:19 Myelocytes # 0.0 K/mm3 05/10/21 04:19 Promyelocytes # 0.0 K/mm3 05/10/21 04:19 Blast Cells # 0.0 K/mm3 05/10/21 04:19 WBC Morphology Not Reportable 05/10/21 04:19 Hypersegmented Neuts Not Reportable 05/10/21 04:19 Hyposegmented Neuts Not Reportable 05/10/21 04:19 Hypogranular Neuts Not Reportable 05/10/21 04:19 Smudge Cells Not Reportable 05/10/21 04:19 Toxic Granulation Not Reportable 05/10/21 04:19 Toxic Vacuolation Not Reportable 05/10/21 04:19 Dohle Bodies Not Reportable 05/10/21 04:19 Pelger-Huet Anomaly Not Reportable 05/10/21 04:19 Ward Rods Not Reportable 02/14/22 04:19 Platelet Estimate Consistent w auto 05/10/21 04:19 Clumped Platelets Not Reportable 05/10/21 04:19 Plt Clumps, EDTA Not Reportable 05/10/21 04:19 Large Platelets Not Reportable 05/10/21 04:19 Giant Platelets Not Reportable 05/10/21 04:19 Platelet Satelliting Not Reportable 05/10/21 04:19 Plt Morphology Comment Not Reportable 05/10/21 04:19 RBC Morphology Not Reportable 05/10/21 04:19 Dimorphic RBCs Not Reportable 05/10/21 04:19 Polychromasia Not Reportable 05/10/21 04:19 Hypochromasia Not Reportable 05/10/21 04:19 Poikilocytosis Not Reportable 05/10/21 04:19 Anisocytosis 1+ 05/10/21 04:19 Microcytosis Not Reportable 05/10/21 04:19 Macrocytosis Not Reportable 05/10/21 04:19 Spherocytes Not Reportable 05/10/21 04:19 Pappenheimer Bodies Not Reportable 05/10/21 04:19 Sickle Cells Not Reportable 05/10/21 04:19 Target Cells 1+ 05/10/21 04:19 Tear Drop Cells Not Reportable 05/10/21 04:19 Ovalocytes Not Reportable 05/10/21 04:19 Helmet Cells Not Reportable 05/10/21 04:19 [place] Bodies Not Reportable 05/10/21 04:19 [place] Rings Not Reportable 05/10/21 04:19 Fabiola Cells Not Reportable 05/10/21 04:19 Bite Cells Not Reportable 05/10/21 04:19 Crenated Cell Not Reportable 05/10/21 04:19 Elliptocytes 1+ 05/10/21 04:19 Acanthocytes (Spur) Not Reportable 05/10/21 04:19 Rouleaux Not Reportable 05/10/21 04:19 Hemoglobin C Crystals Not Reportable 05/10/21 04:19 Schistocytes Not Reportable 05/10/21 04:19 Malaria parasites Not Reportable 05/10/21 04:19 Rodrigo Bodies Not Reportable 05/10/21 04:19 Hem Pathologist Commnt No 05/10/21 04:19 Sodium 145 mmol/L (137-145) 05/11/21 08:14 Potassium 3.6 mmol/L (3.6-5.0) 05/11/21 08:14 Chloride 110.3 mmol/L (98-107) H 05/11/21 08:14 Carbon Dioxide 19 mmol/L (22-30) L 05/11/21 08:14 Anion Gap 19 mmol/L 05/11/21 08:14 BUN 15 mg/dL (7-17) 05/11/21 08:14 Creatinine 1.5 mg/dL (0.6-1.2) H 05/11/21 08:14 Estimated GFR 41 ml/min 05/11/21 08:14 BUN/Creatinine Ratio 10 % 05/11/21 08:14 Glucose 92 mg/dL (65-100) 05/11/21 08:14 Calcium 8.3 mg/dL (8.4-10.2) L 05/11/21 08:14 Urine Color Yellow (Yellow) 05/08/21 19:05 Urine Turbidity Turbid (Clear) 05/08/21 19:05 Urine pH 6.0 (5.0-7.0) 05/08/21 19:05 Ur Specific [place] 1.013 (1.003-1.030) 05/08/21 19:05 Urine Protein 100 mg/dl mg/dL (Negative) 05/08/21 19:05 Urine Glucose (UA) Neg mg/dL (Negative) 05/08/21 19:05 Urine Ketones Neg mg/dL (Negative) 05/08/21 19:05 Urine Blood Sm (Negative) 05/08/21 19:05 Urine Nitrite Neg (Negative) 05/08/21 19:05 Urine Bilirubin Neg (Negative) 05/08/21 19:05 Urine Urobilinogen < 2.0 mg/dL (<2.0) 05/08/21 19:05 Ur Leukocyte Esterase Mod (Negative) 05/08/21 19:05 Urine WBC (Auto) > 182.0 /HPF (0.0-6.0) H 05/08/21 19:05 Urine RBC (Auto) 31.0 /HPF (0.0-6.0) 05/08/21 19:05 Urine Bacteria (Auto) 1+ /HPF (Negative) 05/08/21 19:05 Urine WBC Clumps 3+ /HPF 05/08/21 19:05 Urine Mucus 2+ /HPF 05/08/21 19:05 Salicylates 0.3 mg/dL (2.8-20.0) L 05/08/21 09:37 Urine Opiates Screen Negative 05/08/21 19:05 Urine Methadone Screen Negative 05/08/21 19:05 Acetaminophen 12.2 ug/mL (10.0-30.0) 05/08/21 09:37 Ur Barbiturates Screen Negative 05/08/21 19:05 Ur Phencyclidine Scrn Negative 05/08/21 19:05 Ur Amphetamines Screen Negative 05/08/21 19:05 U Benzodiazepines Scrn Negative 05/08/21 19:05 Urine Cocaine Screen Negative 05/08/21 19:05 U Marijuana (THC) Screen Presumptive positive 05/08/21 19:05 Drugs of Abuse Note Disclamer 05/08/21 19:05 Plasma/Serum Alcohol < 0.01 % (0-0.07) 05/08/21 09:37 Coronavirus (PCR) Negative (Negative) 05/09/21 08:50 Blood Type O POSITIVE 05/09/21 10:20 Antibody Screen Negative 05/09/21 10:20 Microbiology: Microbiology 05/09/21 Unknown Urine,Clean Catch Urine Culture - Final [place]/IV: Voiding Method Incontinent Active Medications - Current Medications Current Medications: Generic Name Dose Route Start Last Admin Trade Name Freq PRN Reason Stop Dose Admin Acetaminophen 650 mg 05/09/21 17:07 Acetaminophen 325 Mg Tab PO Q4H PRN Pain MILD(1-3)/Fever >100.5/SEE Hydrocodone Bitart/Acetaminophen 2 each 05/09/21 09:28 05/11/21 14:51 Hydrocodone/Acetaminophen 5-325 Mg Tab PO 2 each Q6H PRN Administration Pain, Moderate (4-6) Amlodipine Besylate 5 mg 05/09/21 10:00 05/11/21 09:36 Amlodipine 5 Mg Tab PO 5 mg DAILY MADISYN Administration Clonazepam 0.25 mg 05/09/21 11:00 05/11/21 09:37 Clonazepam 0.5 Mg Tab PO 05/12/21 06:00 0.25 mg BID MADISYN Administration Dicyclomine HCl 10 mg 05/09/21 09:35 Dicyclomine 10 Mg Cap PO BID PRN stomach cramps Docusate Sodium 100 mg 05/09/21 10:00 05/11/21 09:38 Docusate Sodium 100 Mg Cap PO Not Given BID MADISYN Escitalopram Oxalate 10 mg 05/11/21 10:00 05/11/21 09:36 Escitalopram 10 Mg Tab PO 10 mg QDAY MADISYN Administration Heparin Sodium (Porcine) 5,000 unit 05/09/21 22:00 05/11/21 09:36 Heparin 5,000 Unit/1 Ml Vial SUB-Q 5,000 unit Q12HR MADISYN Administration Hydralazine HCl 10 mg 05/09/21 10:00 05/11/21 09:42 Hydralazine 10 Mg Tab PO 10 mg Q6H MADISYN Administration Sodium Chloride 1,000 mls @ 100 mls/hr 05/09/21 09:30 05/10/21 23:49 Nacl 0.9% 1000 Ml IV 100 mls/hr DIRECT MADISYN Administration Levetiracetam 500 mg 05/09/21 10:00 05/11/21 09:36 Levetiracetam 500 Mg Tab PO 500 mg BID MADISYN Administration Linezolid 600 mg 05/09/21 11:00 05/11/21 10:51 Linezolid 600 Mg Tab PO 05/13/21 10:59 600 mg BID MADISYN Administration Protocol Lorazepam 1 mg 05/09/21 09:28 05/10/21 23:48 Lorazepam 2 Mg/Ml Vial IV 1 mg Q6H PRN Administration Agitation Mirtazapine 7.5 mg 05/09/21 22:00 05/10/21 21:58 Mirtazapine 15 Mg Tab PO 7.5 mg QHS MADISYN Administration Morphine Sulfate 2 mg 05/09/21 17:07 Morphine 2 Mg/1 Ml Inj IV Q4H PRN Pain, Moderate (4-6) Ondansetron HCl 4 mg 05/09/21 09:28 Ondansetron 4 Mg/2 Ml Inj IV Q8H PRN Nausea And Vomiting Ondansetron HCl 4 mg 05/09/21 17:07 Ondansetron 4 Mg/2 Ml Inj IV Q8H PRN Nausea And Vomiting Pantoprazole Sodium 40 mg 05/09/21 10:00 05/11/21 09:37 Pantoprazole 40 Mg Tab PO 40 mg BID MADISYN Administration Quetiapine Fumarate 25 mg 05/10/21 22:00 05/11/21 09:37 Quetiapine 25 Mg Tab PO 25 mg BID MADISYN Administration Senna 8.6 mg 05/09/21 09:39 Sennosides 8.6 Mg Tab PO HS PRN Constipation Sodium Chloride 10 ml 05/09/21 10:00 05/11/21 09:38 Sodium Chloride 0.9% 10 Ml Flush Syringe IV 10 ml BID MADISYN Administration Sodium Chloride 10 ml 05/09/21 09:28 Sodium Chloride 0.9% 10 Ml Flush Syringe IV PRN PRN LINE FLUSH Sodium Chloride 10 ml 05/09/21 22:00 05/11/21 13:05 Sodium Chloride 0.9% 10 Ml Flush Syringe IV 10 ml BID MADISYN Administration Sodium Chloride 10 ml 05/09/21 17:07 Sodium Chloride 0.9% 10 Ml Flush Syringe IV PRN PRN LINE FLUSH Sucralfate 1 gm 05/09/21 11:30 05/11/21 13:04 Sucralfate 1 Gm/10 Ml Oral Liqd PO 1 gm ACHS MADISYN Administration Nutrition/Malnutrition Assess - Dietary Evaluation Nutrition/Malnutrition Findings: Nutrition Notes Start: 05/10/21 17:14 Freq: Status: Active Protocol: Document 05/10/21 17:14 RED (Rec: 05/10/21 17:34 RED [id number]) Nutrition Notes 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 Labs/Tests 05/10: Na 146, Cl 109.8, Crea 1.3. Pertinent Medications 05/10: Nutritionally unremarkable. Height 5 ft Weight 77.111 kg [place] Body Weight (kg) 45.45 BMI 33.2 Intake Prior to Admission Good Weight change and time frame Pt states being unsure if loss body weight [employer] [place] MAN. Weight Status Obese Subjective/Other Information RD consult for Risk of Malnutrition Assessment. No reports available on Pt's PO intake of meals at the time . Pt shows no signs of concern for risk of malnutrition at the time, according to Physical Assessment History notes. Pt has missing teeth, according to Physical Assessment History notes. Percent of energy/protein needs met: Prescribed Cardiac Diet provides for energy/protein needs (2,230 Kcal/85 g) during LOS. Burn Absent Trauma Absent GI Symptoms None Food Allergy Yes Skin Integrity/Comment Unspecified area of concern. Minimum of two criteria No Is patient on ventilator? No Is Patient Ambulatory and/or Out of Bed Yes REE-([place]-St. Jeor-ambulatory/OOB) [ 1556.893 [id number]] Kcal/Kg value to use for calculation 16 Approximate Energy Requirements Using 1234 kcal/Kg Calculation Used for Recommendations Kcal/kg Additional Notes Protein: 1-1.2 g/Kg; 63-76 g/ day. Fluids: 1 ml/Kcal, or as per MD. Nutrition Intervention Change Diet Order: Continue Cardiac Diet. Goal #1 Maintain body weight within +/ -3% of admission body weight during LOS. Follow-Up By: 05/17/21 Additional Comments Continue monitoring food tolerance, %PO intake of meals , and BM.
[2021-05-11] MEDS: MIRTAZAPINE 15 MG TAB PO SCH (21:42)
[2021-05-11] MEDS: SODIUM CHLORIDE 0.9% 1000 ML 1,000 ML IV SCH (21:47)
[2021-05-12] MEDS: hydrALAZINE 10 MG TAB PO SCH ×4 (04:45→22:59)
[2021-05-12] MEDS: amLODIPine 5 MG TAB PO SCH (09:19)
[2021-05-12] MEDS: QUEtiapine 25 MG TAB PO SCH ×2 (09:19→22:42)
[2021-05-12] MEDS: ESCITALOPRAM 10 MG TAB PO SCH (09:19)
[2021-05-12] MEDS: LINEZOLID 600 MG TAB PO SCH ×2 (09:19→22:42)
[2021-05-12] MEDS: HEPARIN 5,000 UNIT/1 ML VIAL SUB-Q SCH ×2 (09:20→22:44)
[2021-05-12] MEDS: SUCRALFATE 1 GM/10 ML ORAL LIQD PO SCH ×4 (09:20→22:57)
[2021-05-12] MEDS: levETIRAcetam 500 MG TAB PO SCH ×2 (09:20→22:42)
[2021-05-12] MEDS: PANTOPRAZOLE 40 MG TAB PO SCH ×2 (09:20→22:54)
[2021-05-12] MEDS: DOCUSATE SODIUM 100 MG CAP PO SCH ×2 (09:20→22:42)
[2021-05-12] MEDS: LORazepam 2 MG/ML VIAL IV PRN (14:20)
--- NOTE | 2021-05-12 14:56 | Progress Note ---
Assessment and Plan Assessment and plan: #Suicidal ideation -patient denies SI and hallucinations at this time -continue lexapro, seroquel and mirtazipine -continue 1013 status, Psychiatry following, assistance appreciated #Acute metabolic encephalopathy-resolved -patient with underlyind dementia -likely multifactorial given UTI -will continue to monitor #Acute cystitis with hematuria s/p rocephin x3 days -urine culture grew 10-100k mixed manish, likely dirty catch -will treat due to baseline mental status #History of CVA (cerebrovascular accident) At present risk factors well controlled. Will obtain lipid panel. Patient blood pressure 133/71 without antihypertensives. Which will initiate antihypertensive with pressures are supportive We will continue lipid therapy for now. #Hypertension #Hyperlipidemia Continue amlodipine 5 mg daily and atorvastatin 20 mg daily Continue to monitor #Seizure disorder No recent seizure Continue Keppra 500 mg BID History Interval history: No acute events overnight. Patient confused as baseline. No complaints at this time. Hospitalist Physical - Physical exam Narrative exam: GENERAL: Thin elderly woman. In no acute distress. CHEST/LUNGS: CTAB on room air HEART/CARDIOVASCULAR: RRR. No murmur, rubs or gallops appreciated. ABDOMEN: +BS. NT/ND. SKIN: No rashes noted. NEURO: No focal motor deficit noted. EXTREMITIES: No cyanosis, clubbing or edema. PSYCH: Cooperative. - Constitutional Vitals: Temp Pulse Resp BP Pulse Ox 98.0 F 79 18 107/40 96 05/12/21 04:19 05/12/21 04:45 05/12/21 04:19 05/12/21 04:45 05/12/21 11:00 General appearance: Present: no acute distress, well-nourished, obese Results - Labs CBC & Chem 7: 05/11/21 08:14 05/11/21 08:14 Labs: Laboratory Last Values WBC 6.6 K/mm3 (4.5-11.0) 05/11/21 08:14 RBC 3.06 M/mm3 (3.65-5.03) L 05/11/21 08:14 Hgb 8.6 gm/dl (10.1-14.3) L 05/11/21 08:14 Hct 27.0 % (30.3-42.9) L 05/11/21 08:14 MCV 88 fl (79-97) 05/11/21 08:14 MCH 28 pg (28-32) 05/11/21 08:14 MCHC 32 % (30-34) 05/11/21 08:14 RDW 16.3 % (13.2-15.2) H 05/11/21 08:14 Plt Count 372 K/mm3 (140-440) 05/11/21 08:14 Lymph % (Auto) 21.2 % (13.4-35.0) 05/11/21 08:14 Petroleum % (Auto) 5.8 % (0.0-7.3) 05/11/21 08:14 Eos % (Auto) 1.7 % (0.0-4.3) 05/11/21 08:14 Baso % (Auto) 0.5 % (0.0-1.8) 05/11/21 08:14 Lymph # (Auto) 1.4 K/mm3 (1.2-5.4) 05/11/21 08:14 Petroleum # (Auto) 0.4 K/mm3 (0.0-0.8) 05/11/21 08:14 Eos # (Auto) 0.1 K/mm3 (0.0-0.4) 05/11/21 08:14 Baso # (Auto) 0.0 K/mm3 (0.0-0.1) 05/11/21 08:14 Add Manual Diff Complete 05/10/21 04:19 Total Counted 100 05/10/21 04:19 Seg Neutrophils % 70.8 % (40.0-70.0) H 05/11/21 08:14 Seg Neuts % (Manual) 61.0 % (40.0-70.0) 05/10/21 04:19 Band Neutrophils % 0 % 05/10/21 04:19 Lymphocytes % (Manual) 28.0 % (13.4-35.0) 05/10/21 04:19 Reactive Lymphs % (Man) 0 % 05/10/21 04:19 Monocytes % (Manual) 7.0 % (0.0-7.3) 05/10/21 04:19 Eosinophils % (Manual) 4.0 % (0.0-4.3) 05/10/21 04:19 Basophils % (Manual) 0 % (0.0-1.8) 05/10/21 04:19 Metamyelocytes % 0 % 05/10/21 04:19 Myelocytes % 0 % 05/10/21 04:19 Promyelocytes % 0 % 05/10/21 04:19 Blast Cells % 0 % 05/10/21 04:19 Nucleated RBC % Not Reportable 05/10/21 04:19 Seg Neutrophils # 4.7 K/mm3 (1.8-7.7) 05/11/21 08:14 Seg Neutrophils # Man 3.4 K/mm3 (1.8-7.7) 05/10/21 04:19 Band Neutrophils # 0.0 K/mm3 05/10/21 04:19 Lymphocytes # (Manual) 1.6 K/mm3 (1.2-5.4) 05/10/21 04:19 Abs React Lymphs (Man) 0.0 K/mm3 05/10/21 04:19 Monocytes # (Manual) 0.4 K/mm3 (0.0-0.8) 05/10/21 04:19 Eosinophils # (Manual) 0.2 K/mm3 (0.0-0.4) 05/10/21 04:19 Basophils # (Manual) 0.0 K/mm3 (0.0-0.1) 05/10/21 04:19 Metamyelocytes # 0.0 K/mm3 05/10/21 04:19 Myelocytes # 0.0 K/mm3 05/10/21 04:19 Promyelocytes # 0.0 K/mm3 05/10/21 04:19 Blast Cells # 0.0 K/mm3 05/10/21 04:19 WBC Morphology Not Reportable 05/10/21 04:19 Hypersegmented Neuts Not Reportable 05/10/21 04:19 Hyposegmented Neuts Not Reportable 05/10/21 04:19 Hypogranular Neuts Not Reportable 05/10/21 04:19 Smudge Cells Not Reportable 05/10/21 04:19 Toxic Granulation Not Reportable 05/10/21 04:19 Toxic Vacuolation Not Reportable 05/10/21 04:19 Dohle Bodies Not Reportable 05/10/21 04:19 Pelger-Huet Anomaly Not Reportable 05/10/21 04:19 Ward Rods Not Reportable 05/10/21 04:19 Platelet Estimate Consistent w auto 05/10/21 04:19 Clumped Platelets Not Reportable 05/10/21 04:19 Plt Clumps, EDTA Not Reportable 05/10/21 04:19 Large Platelets Not Reportable 05/10/21 04:19 Giant Platelets Not Reportable 05/10/21 04:19 Platelet Satelliting Not Reportable 05/10/21 04:19 Plt Morphology Comment Not Reportable 05/10/21 04:19 RBC Morphology Not Reportable 05/10/21 04:19 Dimorphic RBCs Not Reportable 05/10/21 04:19 Polychromasia Not Reportable 05/10/21 04:19 Hypochromasia Not Reportable 05/10/21 04:19 Poikilocytosis Not Reportable 05/10/21 04:19 Anisocytosis 1+ 05/10/21 04:19 Microcytosis Not Reportable 05/10/21 04:19 Macrocytosis Not Reportable 05/10/21 04:19 Spherocytes Not Reportable 05/10/21 04:19 Pappenheimer Bodies Not Reportable 05/10/21 04:19 Sickle Cells Not Reportable 05/10/21 04:19 Target Cells 1+ 05/10/21 04:19 Tear Drop Cells Not Reportable 05/10/21 04:19 Ovalocytes Not Reportable 05/10/21 04:19 Helmet Cells Not Reportable 05/10/21 04:19 [place] Bodies Not Reportable 05/10/21 04:19 [place] Rings Not Reportable 05/10/21 04:19 Fabiola Cells Not Reportable 05/10/21 04:19 Bite Cells Not Reportable 05/10/21 04:19 Crenated Cell Not Reportable 05/10/21 04:19 Elliptocytes 1+ 05/10/21 04:19 Acanthocytes (Spur) Not Reportable 05/10/21 04:19 Rouleaux Not Reportable 05/10/21 04:19 Hemoglobin C Crystals Not Reportable 05/10/21 04:19 Schistocytes Not Reportable 05/10/21 04:19 Malaria parasites Not Reportable 05/10/21 04:19 [place]o Bodies Not Reportable 05/10/21 04:19 Hem Pathologist Commnt No 05/10/21 04:19 Sodium 145 mmol/L (137-145) 02/15/22 08:14 Potassium 3.6 mmol/L (3.6-5.0) 05/11/21 08:14 Chloride 110.3 mmol/L (98-107) H 05/11/21 08:14 Carbon Dioxide 19 mmol/L (22-30) L 05/11/21 08:14 Anion Gap 19 mmol/L 05/11/21 08:14 BUN 15 mg/dL (7-17) 05/11/21 08:14 Creatinine 1.5 mg/dL (0.6-1.2) H 05/11/21 08:14 Estimated GFR 41 ml/min 05/11/21 08:14 BUN/Creatinine Ratio 10 % 05/11/21 08:14 Glucose 92 mg/dL (65-100) 05/11/21 08:14 POC Glucose 169 mg/dL (70-105) H 05/12/21 04:27 Calcium 8.3 mg/dL (8.4-10.2) L 05/11/21 08:14 Urine Color Yellow (Yellow) 05/08/21 19:05 Urine Turbidity Turbid (Clear) 05/08/21 19:05 Urine pH 6.0 (5.0-7.0) 05/08/21 19:05 Ur Specific [place] 1.013 (1.003-1.030) 05/08/21 19:05 Urine Protein 100 mg/dl mg/dL (Negative) 05/08/21 19:05 Urine Glucose (UA) Neg mg/dL (Negative) 05/08/21 19:05 Urine Ketones Neg mg/dL (Negative) 05/08/21 19:05 Urine Blood Sm (Negative) 05/08/21 19:05 Urine Nitrite Neg (Negative) 05/08/21 19:05 Urine Bilirubin Neg (Negative) 05/08/21 19:05 Urine Urobilinogen < 2.0 mg/dL (<2.0) 05/08/21 19:05 Ur Leukocyte Esterase Mod (Negative) 05/08/21 19:05 Urine WBC (Auto) > 182.0 /HPF (0.0-6.0) H 05/08/21 19:05 Urine RBC (Auto) 31.0 /HPF (0.0-6.0) 05/08/21 19:05 Urine Bacteria (Auto) 1+ /HPF (Negative) 05/08/21 19:05 Urine WBC Clumps 3+ /HPF 05/08/21 19:05 Urine Mucus 2+ /HPF 05/08/21 19:05 Salicylates 0.3 mg/dL (2.8-20.0) L 05/08/21 09:37 Urine Opiates Screen Negative 05/08/21 19:05 Urine Methadone Screen Negative 05/08/21 19:05 Acetaminophen 12.2 ug/mL (10.0-30.0) 05/08/21 09:37 Ur Barbiturates Screen Negative 05/08/21 19:05 Ur Phencyclidine Scrn Negative 05/08/21 19:05 Ur Amphetamines Screen Negative 05/08/21 19:05 U Benzodiazepines Scrn Negative 05/08/21 19:05 Urine Cocaine Screen Negative 05/08/21 19:05 U Marijuana (THC) Screen Presumptive positive 05/08/21 19:05 Drugs of Abuse Note Disclamer 05/08/21 19:05 Plasma/Serum Alcohol < 0.01 % (0-0.07) 05/08/21 09:37 Coronavirus (PCR) Negative (Negative) 05/09/21 08:50 Blood Type O POSITIVE 05/09/21 10:20 Antibody Screen Negative 05/09/21 10:20 [place]/IV: Voiding Method Incontinent Active Medications - Current Medications Current Medications: Generic Name Dose Route Start Last Admin Trade Name Freq PRN Reason Stop Dose Admin Acetaminophen 650 mg 05/09/21 17:07 Acetaminophen 325 Mg Tab PO Q4H PRN Pain MILD(1-3)/Fever >100.5/SEE Hydrocodone Bitart/Acetaminophen 2 each 05/09/21 09:28 05/11/21 14:51 Hydrocodone/Acetaminophen 5-325 Mg Tab PO 2 each Q6H PRN Administration Pain, Moderate (4-6) Amlodipine Besylate 5 mg 05/09/21 10:00 05/12/21 09:19 Amlodipine 5 Mg Tab PO 5 mg DAILY MADISYN Administration Dicyclomine HCl 10 mg 05/09/21 09:35 Dicyclomine 10 Mg Cap PO BID PRN stomach cramps Docusate Sodium 100 mg 05/09/21 10:00 05/12/21 09:20 Docusate Sodium 100 Mg Cap PO 100 mg BID MADISYN Administration Escitalopram Oxalate 10 mg 05/11/21 10:00 05/12/21 09:19 Escitalopram 10 Mg Tab PO 10 mg QDAY MADISYN Administration Heparin Sodium (Porcine) 5,000 unit 05/09/21 22:00 05/12/21 09:20 Heparin 5,000 Unit/1 Ml Vial SUB-Q 5,000 unit Q12HR MADISYN Administration Hydralazine HCl 10 mg 05/09/21 10:00 05/12/21 04:45 Hydralazine 10 Mg Tab PO Not Given Q6H MADISYN Sodium Chloride 1,000 mls @ 100 mls/hr 05/09/21 09:30 05/11/21 21:47 Nacl 0.9% 1000 Ml IV 100 mls/hr DIRECT MADISYN Administration Levetiracetam 500 mg 05/09/21 10:00 05/12/21 09:20 Levetiracetam 500 Mg Tab PO 500 mg BID MADISYN Administration Linezolid 600 mg 05/09/21 11:00 05/12/21 09:19 Linezolid 600 Mg Tab PO 05/13/21 10:59 600 mg BID MADISYN Administration Protocol Lorazepam 1 mg 05/09/21 09:28 05/10/21 23:48 Lorazepam 2 Mg/Ml Vial IV 1 mg Q6H PRN Administration Agitation Mirtazapine 7.5 mg 05/09/21 22:00 05/11/21 21:42 Mirtazapine 15 Mg Tab PO 7.2 mg QHS MADISYN Administration Morphine Sulfate 2 mg 05/09/21 17:07 Morphine 2 Mg/1 Ml Inj IV Q4H PRN Pain, Moderate (4-6) Ondansetron HCl 4 mg 05/09/21 09:28 Ondansetron 4 Mg/2 Ml Inj IV Q8H PRN Nausea And Vomiting Ondansetron HCl 4 mg 05/09/21 17:07 Ondansetron 4 Mg/2 Ml Inj IV Q8H PRN Nausea And Vomiting Pantoprazole Sodium 40 mg 05/09/21 10:00 05/12/21 09:20 Pantoprazole 40 Mg Tab PO 40 mg BID MADISYN Administration Quetiapine Fumarate 25 mg 05/10/21 22:00 05/12/21 09:19 Quetiapine 25 Mg Tab PO 25 mg BID MADISYN Administration Senna 8.6 mg 05/09/21 09:39 Sennosides 8.6 Mg Tab PO HS PRN Constipation Sodium Chloride 10 ml 05/09/21 10:00 05/12/21 09:20 Sodium Chloride 0.9% 10 Ml Flush Syringe IV 10 ml BID MADISYN Administration Sodium Chloride 10 ml 05/09/21 09:28 Sodium Chloride 0.9% 10 Ml Flush Syringe IV PRN PRN LINE FLUSH Sodium Chloride 10 ml 05/09/21 22:00 05/12/21 09:21 Sodium Chloride 0.9% 10 Ml Flush Syringe IV Not Given BID MADISYN Sodium Chloride 10 ml 05/09/21 17:07 Sodium Chloride 0.9% 10 Ml Flush Syringe IV PRN PRN LINE FLUSH Sucralfate 1 gm 05/09/21 11:30 05/12/21 09:20 Sucralfate 1 Gm/10 Ml Oral Liqd PO 1 gm ACHS MADISYN Administration Nutrition/Malnutrition Assess - Dietary Evaluation Nutrition/Malnutrition Findings: Nutrition Notes Start: 05/10/21 17:14 Freq: Status: Active Protocol: Document 05/10/21 17:14 RED (Rec: 05/10/21 17:34 RED [id number]) Nutrition Notes 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 Labs/Tests 05/10: Na 146, Cl 109.8, Crea 1.3. Pertinent Medications 05/10: Nutritionally unremarkable. Height 5 ft Weight 77.111 kg [place] Body Weight (kg) 45.45 BMI 33.2 Intake Prior to Admission Good Weight change and time frame Pt states being unsure if loss body weight [employer]ALL [employer]OVERING [employer]OR. Weight Status Obese Subjective/Other Information RD consult for Risk of Malnutrition Assessment. No reports available on Pt's PO intake of meals at the time . Pt shows no signs of concern for risk of malnutrition at the time, according to Physical Assessment History notes. Pt has missing teeth, according to Physical Assessment History notes. Percent of energy/protein needs met: Prescribed Cardiac Diet provides for energy/protein needs (2,230 Kcal/85 g) during LOS. Burn Absent Trauma Absent GI Symptoms None Food Allergy Yes Skin Integrity/Comment Unspecified area of concern. Minimum of two criteria No Is patient on ventilator? No Is Patient Ambulatory and/or Out of Bed Yes REE-([place] Jeor-ambulatory/OOB) [ 1556.893 [id number]] Kcal/Kg value to use for calculation 16 Approximate Energy Requirements Using 1234 kcal/Kg Calculation Used for Recommendations Kcal/kg Additional Notes Protein: 1-1.2 g/Kg; 63-76 g/ day. Fluids: 1 ml/Kcal, or as per MD. Nutrition Intervention Change Diet Order: Continue Cardiac Diet. Goal #1 Maintain body weight within +/ -3% of admission body weight during LOS. Follow-Up By: 05/17/21 Additional Comments Continue monitoring food tolerance, %PO intake of meals , and BM.
[2021-05-12] MEDS: HYDROcodone/ACETAMINOPHEN 5-325 MG TAB PO PRN (17:11)
[2021-05-12] MEDS: MIRTAZAPINE 15 MG TAB PO SCH (22:41)
[2021-05-13] MEDS: hydrALAZINE 10 MG TAB PO SCH ×6 (05:16→22:11)
[2021-05-13] MEDS: HYDROcodone/ACETAMINOPHEN 5-325 MG TAB PO PRN (08:46)
[2021-05-13 09:03] LABS: Calcium 8.5 mg/dL (8.4-10.2)
[2021-05-13] MEDS: amLODIPine 5 MG TAB PO SCH (10:15)
[2021-05-13] MEDS: levETIRAcetam 500 MG TAB PO SCH ×2 (10:15→21:34)
[2021-05-13] MEDS: DOCUSATE SODIUM 100 MG CAP PO SCH ×2 (10:15→21:31)
[2021-05-13] MEDS: SUCRALFATE 1 GM/10 ML ORAL LIQD PO SCH ×4 (10:15→21:30)
[2021-05-13] MEDS: PANTOPRAZOLE 40 MG TAB PO SCH ×2 (10:15→21:31)
[2021-05-13] MEDS: HEPARIN 5,000 UNIT/1 ML VIAL SUB-Q SCH ×2 (10:16→21:31)
[2021-05-13] MEDS: LINEZOLID 600 MG TAB PO SCH (10:16)
[2021-05-13] MEDS: ESCITALOPRAM 10 MG TAB PO SCH (10:17)
[2021-05-13] MEDS: QUEtiapine 25 MG TAB PO SCH ×2 (10:18→21:34)
--- NOTE | 2021-05-13 10:23 | Progress Note ---
Subjective - Reason for Consult Consult date: 05/13/21 Reason for consult: SI - Chief Complaint Chief complaint: The patient was seen today. A sitter is at bedside. She appears to be better than last time I evaluated her. She says she didn't sleep well. The patient acted surprised when I told her why she was in the hospital. She says "I got too much to do anything like that." She does verbalizes feeling depressed. Staff documents that the patient has been crying at times. ROS: Unable to obtain MENTAL STATUS EXAMINATION Unable to obtain Assessment and Plan (1) Major Depressive Disorder Treatment Plan 1013 Increase Remeron 15mg po qhs Increase Lexapro 20mg po daily Continue Seroquel 25mg po BID Agree with prn lorazepam and seroquel qhs Risks, benefits and alternatives of medications discussed with the patient, questions answered and consent obtained from patient. PSYCHOTHERAPY: Supportive psychotherapy provided MEDICAL: Per primary team DELIRIUM PRECAUTIONS: Please re-orient patient frequently, keep lights on during the day, and minimize benzodiazepines and opiates as these medications could worsen patient's confusion. 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 Please contact with any questions and/or concerns. Case staffed with Dr. Lowery Mental Status Exam - Vital signs Last Vital Signs Temp 98.6 F 05/13/21 04:18 Pulse 64 05/13/21 05:16 Resp 18 05/13/21 04:18 BP 111/50 05/13/21 05:16 Pulse Ox 98 05/13/21 04:18
[2021-05-13] MEDS: MORPHINE 2 MG/1 ML INJ IV PRN ×3 (11:45→21:54)
[2021-05-13] MEDS: LORazepam 2 MG/ML VIAL IV PRN (12:08)
--- NOTE | 2021-05-13 13:00 | Progress Note ---
Assessment and Plan Assessment and plan: #Suicidal ideation -patient denies SI and hallucinations at this time -continue lexapro, seroquel and mirtazipine -continue 1013 status, Psychiatry following, assistance appreciated #Acute metabolic encephalopathy-resolved -patient with underlyind dementia -likely multifactorial given UTI -will continue to monitor #Acute cystitis with hematuria s/p rocephin x3 days -urine culture grew 10-100k mixed manish, likely dirty catch -treated due to baseline mental status #History of CVA (cerebrovascular accident) #Hypertension #Hyperlipidemia Continue amlodipine 5 mg daily and atorvastatin 20 mg daily Continue to monitor #Seizure disorder No recent seizure Continue Keppra 500 mg BID #Discharge planning -Patient was placed at [facility] before admission, [facility] will not accept patient back -CM/SW to help with discharge planning, will likely be a hard placement given suicide attempt and bedbound status History Interval history: No acute events overnight. Patient confused as baseline. Has no recollection of events that have per in the hospital. She has no complaints at this time. Hospitalist Physical - Physical exam Narrative exam: GENERAL: Thin elderly woman. In no acute distress. CHEST/LUNGS: CTAB on room air HEART/CARDIOVASCULAR: RRR. No murmur, rubs or gallops appreciated. ABDOMEN: +BS. NT/ND. SKIN: No rashes noted. NEURO: No focal motor deficit noted. EXTREMITIES: No cyanosis, clubbing or edema. PSYCH: Cooperative. - Constitutional Vitals: Temp Pulse Resp BP Pulse Ox 98.1 F 79 20 90/49 93 05/13/21 12:19 05/13/21 12:19 05/13/21 12:19 05/13/21 12:19 05/13/21 12:19 General appearance: Present: no acute distress, well-nourished, obese Results - Labs CBC & Chem 7: 05/11/21 08:14 05/13/21 07:46 Labs: Laboratory Last Values WBC 6.6 K/mm3 (4.5-11.0) 05/11/21 08:14 RBC 3.06 M/mm3 (3.65-5.03) L 05/11/21 08:14 Hgb 8.6 gm/dl (10.1-14.3) L 05/11/21 08:14 Hct 27.0 % (30.3-42.9) L 05/11/21 08:14 MCV 88 fl (79-97) 05/11/21 08:14 MCH 28 pg (28-32) 05/11/21 08:14 MCHC 32 % (30-34) 05/11/21 08:14 RDW 16.3 % (13.2-15.2) H 05/11/21 08:14 Plt Count 372 K/mm3 (140-440) 05/11/21 08:14 Lymph % (Auto) 21.2 % (13.4-35.0) 05/11/21 08:14 Rush % (Auto) 5.8 % (0.0-7.3) 05/11/21 08:14 Eos % (Auto) 1.7 % (0.0-4.3) 05/11/21 08:14 Baso % (Auto) 0.5 % (0.0-1.8) 05/11/21 08:14 Lymph # (Auto) 1.4 K/mm3 (1.2-5.4) 05/11/21 08:14 Rush # (Auto) 0.4 K/mm3 (0.0-0.8) 05/11/21 08:14 Eos # (Auto) 0.1 K/mm3 (0.0-0.4) 05/11/21 08:14 Baso # (Auto) 0.0 K/mm3 (0.0-0.1) 05/11/21 08:14 Add Manual Diff Complete 05/10/21 04:19 Total Counted 100 05/10/21 04:19 Seg Neutrophils % 70.8 % (40.0-70.0) H 05/11/21 08:14 Seg Neuts % (Manual) 61.0 % (40.0-70.0) 05/10/21 04:19 Band Neutrophils % 0 % 05/10/21 04:19 Lymphocytes % (Manual) 28.0 % (13.4-35.0) 05/10/21 04:19 Reactive Lymphs % (Man) 0 % 05/10/21 04:19 Monocytes % (Manual) 7.0 % (0.0-7.3) 05/10/21 04:19 Eosinophils % (Manual) 4.0 % (0.0-4.3) 05/10/21 04:19 Basophils % (Manual) 0 % (0.0-1.8) 05/10/21 04:19 Metamyelocytes % 0 % 05/10/21 04:19 Myelocytes % 0 % 05/10/21 04:19 Promyelocytes % 0 % 05/10/21 04:19 Blast Cells % 0 % 05/10/21 04:19 Nucleated RBC % Not Reportable 05/10/21 04:19 Seg Neutrophils # 4.7 K/mm3 (1.8-7.7) 05/11/21 08:14 Seg Neutrophils # Man 3.4 K/mm3 (1.8-7.7) 05/10/21 04:19 Band Neutrophils # 0.0 K/mm3 05/10/21 04:19 Lymphocytes # (Manual) 1.6 K/mm3 (1.2-5.4) 05/10/21 04:19 Abs React Lymphs (Man) 0.0 K/mm3 05/10/21 04:19 Monocytes # (Manual) 0.4 K/mm3 (0.0-0.8) 05/10/21 04:19 Eosinophils # (Manual) 0.2 K/mm3 (0.0-0.4) 05/10/21 04:19 Basophils # (Manual) 0.0 K/mm3 (0.0-0.1) 05/10/21 04:19 Metamyelocytes # 0.0 K/mm3 05/10/21 04:19 Myelocytes # 0.0 K/mm3 05/10/21 04:19 Promyelocytes # 0.0 K/mm3 05/10/21 04:19 Blast Cells # 0.0 K/mm3 05/10/21 04:19 WBC Morphology Not Reportable 05/10/21 04:19 Hypersegmented Neuts Not Reportable 05/10/21 04:19 Hyposegmented Neuts Not Reportable 05/10/21 04:19 Hypogranular Neuts Not Reportable 05/10/21 04:19 Smudge Cells Not Reportable 05/10/21 04:19 Toxic Granulation Not Reportable 05/10/21 04:19 Toxic Vacuolation Not Reportable 05/10/21 04:19 Dohle Bodies Not Reportable 05/10/21 04:19 Pelger-Huet Anomaly Not Reportable 05/10/21 04:19 Ward Rods Not Reportable 05/10/21 04:19 Platelet Estimate Consistent w auto 05/10/21 04:19 Clumped Platelets Not Reportable 05/10/21 04:19 Plt Clumps, EDTA Not Reportable 05/10/21 04:19 Large Platelets Not Reportable 05/10/21 04:19 Giant Platelets Not Reportable 05/10/21 04:19 Platelet Satelliting Not Reportable 05/10/21 04:19 Plt Morphology Comment Not Reportable 05/10/21 04:19 RBC Morphology Not Reportable 05/10/21 04:19 Dimorphic RBCs Not Reportable 05/10/21 04:19 Polychromasia Not Reportable 05/10/21 04:19 Hypochromasia Not Reportable 05/10/21 04:19 Poikilocytosis Not Reportable 05/10/21 04:19 Anisocytosis 1+ 05/10/21 04:19 Microcytosis Not Reportable 05/10/21 04:19 Macrocytosis Not Reportable 05/10/21 04:19 Spherocytes Not Reportable 05/10/21 04:19 Pappenheimer Bodies Not Reportable 05/10/21 04:19 Sickle Cells Not Reportable 05/10/21 04:19 Target Cells 1+ 05/10/21 04:19 Tear Drop Cells Not Reportable 05/10/21 04:19 Ovalocytes Not Reportable 05/10/21 04:19 Helmet Cells Not Reportable 05/10/21 04:19 Ulloa-Ford Bodies Not Reportable 05/10/21 04:19 Lithia Rings Not Reportable 05/10/21 04:19 Fabiola Cells Not Reportable 05/10/21 04:19 Bite Cells Not Reportable 05/10/21 04:19 Crenated Cell Not Reportable 05/10/21 04:19 Elliptocytes 1+ 05/10/21 04:19 Acanthocytes (Spur) Not Reportable 05/10/21 04:19 Rouleaux Not Reportable 05/10/21 04:19 Hemoglobin C Crystals Not Reportable 05/10/21 04:19 Schistocytes Not Reportable 05/10/21 04:19 Malaria parasites Not Reportable 05/10/21 04:19 Rodrigo Bodies Not Reportable 05/10/21 04:19 Hem Pathologist Commnt No 05/10/21 04:19 Sodium 144 mmol/L (137-145) 05/13/21 07:46 Potassium 3.4 mmol/L (3.6-5.0) L 05/13/21 07:46 Chloride 112.7 mmol/L (98-107) H 05/13/21 07:46 Carbon Dioxide 19 mmol/L (22-30) L 05/13/21 07:46 Anion Gap 16 mmol/L 05/13/21 07:46 BUN 16 mg/dL (7-17) 05/13/21 07:46 Creatinine 1.8 mg/dL (0.6-1.2) H 05/13/21 07:46 Estimated GFR 33 ml/min 05/13/21 07:46 BUN/Creatinine Ratio 9 % 05/13/21 07:46 Glucose 76 mg/dL (65-100) 05/13/21 07:46 POC Glucose 169 mg/dL (70-105) H 05/12/21 04:27 Calcium 8.5 mg/dL (8.4-10.2) 05/13/21 07:46 Urine Color Yellow (Yellow) 05/08/21 19:05 Urine Turbidity Turbid (Clear) 05/08/21 19:05 Urine pH 6.0 (5.0-7.0) 05/08/21 19:05 Ur Specific [place] 1.013 (1.003-1.030) 05/08/21 19:05 Urine Protein 100 mg/dl mg/dL (Negative) 05/08/21 19:05 Urine Glucose (UA) Neg mg/dL (Negative) 05/08/21 19:05 Urine Ketones Neg mg/dL (Negative) 05/08/21 19:05 Urine Blood Sm (Negative) 05/08/21 19:05 Urine Nitrite Neg (Negative) 05/08/21 19:05 Urine Bilirubin Neg (Negative) 05/08/21 19:05 Urine Urobilinogen < 2.0 mg/dL (<2.0) 05/08/21 19:05 Ur Leukocyte Esterase Mod (Negative) 05/08/21 19:05 Urine WBC (Auto) > 182.0 /HPF (0.0-6.0) H 05/08/21 19:05 Urine RBC (Auto) 31.0 /HPF (0.0-6.0) 05/08/21 19:05 Urine Bacteria (Auto) 1+ /HPF (Negative) 05/08/21 19:05 Urine WBC Clumps 3+ /HPF 05/08/21 19:05 Urine Mucus 2+ /HPF 05/08/21 19:05 Salicylates 0.3 mg/dL (2.8-20.0) L 05/08/21 09:37 Urine Opiates Screen Negative 05/08/21 19:05 Urine Methadone Screen Negative 05/08/21 19:05 Acetaminophen 12.2 ug/mL (10.0-30.0) 05/08/21 09:37 Ur Barbiturates Screen Negative 05/08/21 19:05 Ur Phencyclidine Scrn Negative 05/08/21 19:05 Ur Amphetamines Screen Negative 05/08/21 19:05 U Benzodiazepines Scrn Negative 05/08/21 19:05 Urine Cocaine Screen Negative 05/08/21 19:05 U Marijuana (THC) Screen Presumptive positive 05/08/21 19:05 Drugs of Abuse Note Disclamer 05/08/21 19:05 Plasma/Serum Alcohol < 0.01 % (0-0.07) 05/08/21 09:37 Coronavirus (PCR) Negative (Negative) 05/09/21 08:50 Blood Type O POSITIVE 05/09/21 10:20 Antibody Screen Negative 05/09/21 10:20 Bras[place]/IV: Voiding Method Incontinent Active Medications - Current Medications Current Medications: Generic Name Dose Route Start Last Admin Trade Name Freq PRN Reason Stop Dose Admin Acetaminophen 650 mg 05/09/21 17:07 Acetaminophen 325 Mg Tab PO Q4H PRN Pain MILD(1-3)/Fever >100.5/SEE Hydrocodone Bitart/Acetaminophen 2 each 05/09/21 09:28 05/13/21 08:46 Hydrocodone/Acetaminophen 5-325 Mg Tab PO 2 each Q6H PRN Administration Pain, Moderate (4-6) Amlodipine Besylate 5 mg 05/09/21 10:00 05/13/21 10:15 Amlodipine 5 Mg Tab PO 5 mg DAILY MADISYN Administration Dicyclomine HCl 10 mg 05/09/21 09:35 Dicyclomine 10 Mg Cap PO BID PRN stomach cramps Docusate Sodium 100 mg 05/09/21 10:00 05/13/21 10:15 Docusate Sodium 100 Mg Cap PO 100 mg BID MADISYN Administration Escitalopram Oxalate 20 mg 05/14/21 10:00 Escitalopram 10 Mg Tab PO QDAY MADISYN Heparin Sodium (Porcine) 5,000 unit 05/09/21 22:00 05/13/21 10:16 Heparin 5,000 Unit/1 Ml Vial SUB-Q 5,000 unit Q12HR MADISYN Administration Hydralazine HCl 10 mg 05/09/21 10:00 05/13/21 10:17 Hydralazine 10 Mg Tab PO 10 mg Q6H MADISYN Administration Sodium Chloride 1,000 mls @ 100 mls/hr 05/09/21 09:30 05/11/21 21:47 Nacl 0.9% 1000 Ml IV 100 mls/hr DIRECT MADISYN Administration Levetiracetam 500 mg 05/09/21 10:00 05/13/21 10:15 Levetiracetam 500 Mg Tab PO 500 mg BID MADISYN Administration Lorazepam 1 mg 05/09/21 09:28 05/13/21 12:08 Lorazepam 2 Mg/Ml Vial IV 1 mg Q6H PRN Administration Agitation Mirtazapine 15 mg 05/13/21 22:00 Mirtazapine 15 Mg Tab PO QHS MADISYN Morphine Sulfate 2 mg 05/09/21 17:07 Morphine 2 Mg/1 Ml Inj IV Q4H PRN Pain, Moderate (4-6) Ondansetron HCl 4 mg 05/09/21 09:28 Ondansetron 4 Mg/2 Ml Inj IV Q8H PRN Nausea And Vomiting Ondansetron HCl 4 mg 05/09/21 17:07 Ondansetron 4 Mg/2 Ml Inj IV Q8H PRN Nausea And Vomiting Pantoprazole Sodium 40 mg 05/09/21 10:00 05/13/21 10:15 Pantoprazole 40 Mg Tab PO 40 mg BID MADISYN Administration Quetiapine Fumarate 25 mg 05/10/21 22:00 05/13/21 10:18 Quetiapine 25 Mg Tab PO 25 mg BID MADISYN Administration Senna 8.6 mg 05/09/21 09:39 Sennosides 8.6 Mg Tab PO HS PRN Constipation Sodium Chloride 10 ml 05/09/21 10:00 05/13/21 10:18 Sodium Chloride 0.9% 10 Ml Flush Syringe IV 10 ml BID MADISYN Administration Sodium Chloride 10 ml 05/09/21 09:28 Sodium Chloride 0.9% 10 Ml Flush Syringe IV PRN PRN LINE FLUSH Sodium Chloride 10 ml 05/09/21 22:00 05/13/21 10:18 Sodium Chloride 0.9% 10 Ml Flush Syringe IV Not Given BID MADISYN Sodium Chloride 10 ml 05/09/21 17:07 Sodium Chloride 0.9% 10 Ml Flush Syringe IV PRN PRN LINE FLUSH Sucralfate 1 gm 05/09/21 11:30 05/13/21 10:15 Sucralfate 1 Gm/10 Ml Oral Liqd PO 1 gm ACHS MADISYN Administration Nutrition/Malnutrition Assess - Dietary Evaluation Nutrition/Malnutrition Findings: Nutrition Notes Start: 05/10/21 17:1 4 Freq: Status: Active Protocol: Document 05/10/21 17:14 RED (Rec: 05/10/21 17:34 RED [id number]) Nutrition Notes Need for Assessment generated from: cell preparer,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 Labs/Tests 05/10: Na 146, Cl 109.8, Crea 1.3. Pertinent Medications 05/10: Nutritionally unremarkable. Height 5 ft Weight 77.111 kg [place] Body Weight (kg) 45.45 BMI 33.2 Intake Prior to Admission Good Weight change and time frame Pt states being unsure if loss body weight [employer] CO[employer]IN[employer]. Weight Status Obese Subjective/Other Information RD consult for Risk of Malnutrition Assessment. No reports available on Pt's PO intake of meals at the time . Pt shows no signs of concern for risk of malnutrition at the time, according to Physical Assessment History notes. Pt has missing teeth, according to Physical Assessment History notes. Percent of energy/protein needs met: Prescribed Cardiac Diet provides for energy/protein needs (2,230 Kcal/85 g) during LOS. Burn Absent Trauma Absent GI Symptoms None Food Allergy Yes Skin Integrity/Comment Unspecified area of concern. Minimum of two criteria No Is patient on ventilator? No Is Patient Ambulatory and/or Out of Bed Yes REE-([place]-St. Jeor-ambulatory/OOB) [ 6216.893 [id number]] Kcal/Kg value to use for calculation 16 Approximate Energy Requirements Using 1234 kcal/Kg Calculation Used for Recommendations Kcal/kg Additional Notes Protein: 1-1.2 g/Kg; 63-76 g/ day. Fluids: 1 ml/Kcal, or as per MD. Nutrition Intervention Change Diet Order: Continue Cardiac Diet. Goal #1 Maintain body weight within +/ -3% of admission body weight during LOS. Follow-Up By: 05/17/21 Additional Comments Continue monitoring food tolerance, %PO intake of meals , and BM.
[2021-05-13] MEDS: MIRTAZAPINE 15 MG TAB PO SCH (21:31)
[2021-05-14] MEDS: hydrALAZINE 10 MG TAB PO SCH ×3 (04:21→18:10)
--- NOTE | 2021-05-14 07:39 | Progress Note ---
Assessment and Plan Assessment and plan: #Suicidal ideation -patient denies SI and hallucinations at this time -continue lexapro, seroquel and mirtazipine -currently under 1013 status, will discuss with Psychiatry given patient has not had SI since admission #Acute metabolic encephalopathy-resolved -patient with underlyind dementia -likely multifactorial given UTI -will continue to monitor #Acute cystitis with hematuria s/p rocephin x3 days -urine culture grew 10-100k mixed manish, likely dirty catch -treated due to baseline mental status #History of CVA (cerebrovascular accident) #Hypertension #Hyperlipidemia Continue amlodipine 5 mg daily and atorvastatin 20 mg daily Continue to monitor #Seizure disorder No recent seizure Continue Keppra 500 mg BID #Discharge planning -Patient will return back to [facility] tomorrow pending 1013 discontinuance Disposition Plan: [facility] History Interval history: No acute events overnight. Patient cooperative. She has no complaints at this time. Hospitalist Physical - Physical exam Narrative exam: GENERAL: Thin elderly woman. In no acute distress. CHEST/LUNGS: CTAB on room air HEART/CARDIOVASCULAR: RRR. No murmur, rubs or gallops appreciated. ABDOMEN: +BS. NT/ND. SKIN: No rashes noted. NEURO: No focal motor deficit noted. EXTREMITIES: No cyanosis, clubbing or edema. PSYCH: Cooperative. - Constitutional Vitals: Temp Pulse Resp BP Pulse Ox 98.6 F 75 18 105/48 100 05/14/21 04:19 05/14/21 04:21 05/14/21 04:19 05/14/21 04:21 05/14/21 04:19 General appearance: Present: no acute distress, well-nourished, obese Results - Labs CBC & Chem 7: 05/11/21 08:14 05/13/21 07:46 Labs: Laboratory Last Values WBC 6.6 K/mm3 (4.5-11.0) 05/11/21 08:14 RBC 3.06 M/mm3 (3.65-5.03) L 05/11/21 08:14 Hgb 8.6 gm/dl (10.1-14.3) L 05/11/21 08:14 Hct 27.0 % (30.3-42.9) L 05/11/21 08:14 MCV 88 fl (79-97) 05/11/21 08:14 MCH 28 pg (28-32) 05/11/21 08:14 MCHC 32 % (30-34) 05/11/21 08:14 RDW 16.3 % (13.2-15.2) H 05/11/21 08:14 Plt Count 372 K/mm3 (140-440) 05/11/21 08:14 Lymph % (Auto) 21.2 % (13.4-35.0) 05/11/21 08:14 [place] % (Auto) 5.8 % (0.0-7.3) 05/11/21 08:14 Eos % (Auto) 1.7 % (0.0-4.3) 05/11/21 08:14 Baso % (Auto) 0.5 % (0.0-1.8) 05/11/21 08:14 Lymph # (Auto) 1.4 K/mm3 (1.2-5.4) 05/11/21 08:14 [place] # (Auto) 0.4 K/mm3 (0.0-0.8) 05/11/21 08:14 Eos # (Auto) 0.1 K/mm3 (0.0-0.4) 05/11/21 08:14 Baso # (Auto) 0.0 K/mm3 (0.0-0.1) 05/11/21 08:14 Add Manual Diff Complete 05/10/21 04:19 Total Counted 100 05/10/21 04:19 Seg Neutrophils % 70.8 % (40.0-70.0) H 05/11/21 08:14 Seg Neuts % (Manual) 61.0 % (40.0-70.0) 05/10/21 04:19 Band Neutrophils % 0 % 05/10/21 04:19 Lymphocytes % (Manual) 28.0 % (13.4-35.0) 05/10/21 04:19 Reactive Lymphs % (Man) 0 % 05/10/21 04:19 Monocytes % (Manual) 7.0 % (0.0-7.3) 05/10/21 04:19 Eosinophils % (Manual) 4.0 % (0.0-4.3) 05/10/21 04:19 Basophils % (Manual) 0 % (0.0-1.8) 05/10/21 04:19 Metamyelocytes % 0 % 05/10/21 04:19 Myelocytes % 0 % 05/10/21 04:19 Promyelocytes % 0 % 05/10/21 04:19 Blast Cells % 0 % 05/10/21 04:19 Nucleated RBC % Not Reportable 05/10/21 04:19 Seg Neutrophils # 4.7 K/mm3 (1.8-7.7) 05/11/21 08:14 Seg Neutrophils # Man 3.4 K/mm3 (1.8-7.7) 05/10/21 04:19 Band Neutrophils # 0.0 K/mm3 05/10/21 04:19 Lymphocytes # (Manual) 1.6 K/mm3 (1.2-5.4) 05/10/21 04:19 Abs React Lymphs (Man) 0.0 K/mm3 05/10/21 04:19 Monocytes # (Manual) 0.4 K/mm3 (0.0-0.8) 05/10/21 04:19 Eosinophils # (Manual) 0.2 K/mm3 (0.0-0.4) 05/10/21 04:19 Basophils # (Manual) 0.0 K/mm3 (0.0-0.1) 05/10/21 04:19 Metamyelocytes # 0.0 K/mm3 05/10/21 04:19 Myelocytes # 0.0 K/mm3 05/10/21 04:19 Promyelocytes # 0.0 K/mm3 05/10/21 04:19 Blast Cells # 0.0 K/mm3 05/10/21 04:19 WBC Morphology Not Reportable 05/10/21 04:19 Hypersegmented Neuts Not Reportable 05/10/21 04:19 Hyposegmented Neuts Not Reportable 05/10/21 04:19 Hypogranular Neuts Not Reportable 05/10/21 04:19 Smudge Cells Not Reportable 05/10/21 04:19 Toxic Granulation Not Reportable 05/10/21 04:19 Toxic Vacuolation Not Reportable 05/10/21 04:19 Dohle Bodies Not Reportable 05/10/21 04:19 Pelger-Huet Anomaly Not Reportable 05/10/21 04:19 Ward Rods Not Reportable 05/10/21 04:19 Platelet Estimate Consistent w auto 05/10/21 04:19 Clumped Platelets Not Reportable 05/10/21 04:19 Plt Clumps, EDTA Not Reportable 05/10/21 04:19 Large Platelets Not Reportable 05/10/21 04:19 Giant Platelets Not Reportable 05/10/21 04:19 Platelet Satelliting Not Reportable 05/10/21 04:19 Plt Morphology Comment Not Reportable 05/10/21 04:19 RBC Morphology Not Reportable 05/10/21 04:19 Dimorphic RBCs Not Reportable 05/10/21 04:19 Polychromasia Not Reportable 05/10/21 04:19 Hypochromasia Not Reportable 05/10/21 04:19 Poikilocytosis Not Reportable 05/10/21 04:19 Anisocytosis 1+ 05/10/21 04:19 Microcytosis Not Reportable 05/10/21 04:19 Macrocytosis Not Reportable 05/10/21 04:19 Spherocytes Not Reportable 05/10/21 04:19 Pappenheimer Bodies Not Reportable 05/10/21 04:19 Sickle Cells Not Reportable 05/10/21 04:19 Target Cells 1+ 05/10/21 04:19 Tear Drop Cells Not Reportable 05/10/21 04:19 Ovalocytes Not Reportable 05/10/21 04:19 Helmet Cells Not Reportable 05/10/21 04:19 Ulloa-Gann Bodies Not Reportable 05/10/21 04:19 [place] Rings Not Reportable 05/10/21 04:19 Berry Cells Not Reportable 05/10/21 04:19 Bite Cells Not Reportable 05/10/21 04:19 Crenated Cell Not Reportable 05/10/21 04:19 Elliptocytes 1+ 05/10/21 04:19 Acanthocytes (Spur) Not Reportable 05/10/21 04:19 Rouleaux Not Reportable 05/10/21 04:19 Hemoglobin C Crystals Not Reportable 05/10/21 04:19 Schistocytes Not Reportable 05/10/21 04:19 Malaria parasites Not Reportable 05/10/21 04:19 Rodrigo Bodies Not Reportable 05/10/21 04:19 Hem Pathologist Commnt No 05/10/21 04:19 Sodium 144 mmol/L (137-145) 05/13/21 07:46 Potassium 3.4 mmol/L (3.6-5.0) L 05/13/21 07:46 Chloride 112.7 mmol/L (98-107) H 05/13/21 07:46 Carbon Dioxide 19 mmol/L (22-30) L 05/13/21 07:46 Anion Gap 16 mmol/L 05/13/21 07:46 BUN 16 mg/dL (7-17) 05/13/21 07:46 Creatinine 1.8 mg/dL (0.6-1.2) H 05/13/21 07:46 Estimated GFR 33 ml/min 05/13/21 07:46 BUN/Creatinine Ratio 9 % 05/13/21 07:46 Glucose 76 mg/dL (65-100) 05/13/21 07:46 POC Glucose 169 mg/dL (70-105) H 05/12/21 04:27 Calcium 8.5 mg/dL (8.4-10.2) 05/13/21 07:46 Urine Color Yellow (Yellow) 05/08/21 19:05 Urine Turbidity Turbid (Clear) 05/08/21 19:05 Urine pH 6.0 (5.0-7.0) 05/08/21 19:05 Ur Specific [place] 1.013 (1.003-1.030) 05/08/21 19:05 Urine Protein 100 mg/dl mg/dL (Negative) 05/08/21 19:05 Urine Glucose (UA) Neg mg/dL (Negative) 05/08/21 19:05 Urine Ketones Neg mg/dL (Negative) 05/08/21 19:05 Urine Blood Sm (Negative) 05/08/21 19:05 Urine Nitrite Neg (Negative) 05/08/21 19:05 Urine Bilirubin Neg (Negative) 05/08/21 19:05 Urine Urobilinogen < 2.0 mg/dL (<2.0) 05/08/21 19:05 Ur Leukocyte Esterase Mod (Negative) 05/08/21 19:05 Urine WBC (Auto) > 182.0 /HPF (0.0-6.0) H 05/08/21 19:05 Urine RBC (Auto) 31.0 /HPF (0.0-6.0) 05/08/21 19:05 Urine Bacteria (Auto) 1+ /HPF (Negative) 05/08/21 19:05 Urine WBC Clumps 3+ /HPF 05/08/21 19:05 Urine Mucus 2+ /HPF 05/08/21 19:05 Salicylates 0.3 mg/dL (2.8-20.0) L 05/08/21 09:37 Urine Opiates Screen Negative 05/08/21 19:05 Urine Methadone Screen Negative 05/08/21 19:05 Acetaminophen 12.2 ug/mL (10.0-30.0) 05/08/21 09:37 Ur Barbiturates Screen Negative 05/08/21 19:05 Ur Phencyclidine Scrn Negative 05/08/21 19:05 Ur Amphetamines Screen Negative 05/08/21 19:05 U Benzodiazepines Scrn Negative 05/08/21 19:05 Urine Cocaine Screen Negative 05/08/21 19:05 U Marijuana (THC) Screen Presumptive positive 05/08/21 19:05 Drugs of Abuse Note Disclamer 05/08/21 19:05 Plasma/Serum Alcohol < 0.01 % (0-0.07) 05/08/21 09:37 Coronavirus (PCR) Positive (Negative) A 05/13/21 Unknown Blood Type O POSITIVE 05/09/21 10:20 Antibody Screen Negative 05/09/21 10:20 [place]/IV: Voiding Method Incontinent Active Medications - Current Medications Current Medications: Generic Name Dose Route Start Last Admin Trade Name Freq PRN Reason Stop Dose Admin Acetaminophen 650 mg 05/09/21 17:07 Acetaminophen 325 Mg Tab PO Q4H PRN Pain MILD(1-3)/Fever >100.5/SEE Hydrocodone Bitart/Acetaminophen 2 each 05/09/21 09:28 05/13/21 08:46 Hydrocodone/Acetaminophen 5-325 Mg Tab PO 2 each Q6H PRN Administration Pain, Moderate (4-6) Amlodipine Besylate 5 mg 05/09/21 10:00 05/13/21 10:15 Amlodipine 5 Mg Tab PO 5 mg DAILY MADISYN Administration Dicyclomine HCl 10 mg 05/09/21 09:35 Dicyclomine 10 Mg Cap PO BID PRN stomach cramps Docusate Sodium 100 mg 05/09/21 10:00 05/13/21 21:31 Docusate Sodium 100 Mg Cap PO 100 mg BID MADISYN Administration Escitalopram Oxalate 20 mg 05/14/21 10:00 Escitalopram 10 Mg Tab PO QDAY MADISYN Heparin Sodium (Porcine) 5,000 unit 05/09/21 22:00 05/13/21 21:31 Heparin 5,000 Unit/1 Ml Vial SUB-Q 5,000 unit Q12HR MADISYN Administration Hydralazine HCl 10 mg 05/09/21 10:00 05/14/21 04:21 Hydralazine 10 Mg Tab PO Not Given Q6H MADISYN Sodium Chloride 1,000 mls @ 100 mls/hr 05/09/21 09:30 05/11/21 21:47 Nacl 0.9% 1000 Ml IV 100 mls/hr DIRECT MADISYN Administration Levetiracetam 500 mg 05/09/21 10:00 05/13/21 21:34 Levetiracetam 500 Mg Tab PO 500 mg BID MADISYN Administration Lorazepam 1 mg 05/09/21 09:28 05/13/21 12:08 Lorazepam 2 Mg/Ml Vial IV 1 mg Q6H PRN Administration Agitation Mirtazapine 15 mg 05/13/21 22:00 05/13/21 21:31 Mirtazapine 15 Mg Tab PO 15 mg QHS MADISYN Administration Morphine Sulfate 2 mg 05/09/21 17:07 05/13/21 21:54 Morphine 2 Mg/1 Ml Inj IV 2 mg Q4H PRN Administration Pain, Moderate (4-6) Ondansetron HCl 4 mg 05/09/21 09:28 Ondansetron 4 Mg/2 Ml Inj IV Q8H PRN Nausea And Vomiting Ondansetron HCl 4 mg 05/09/21 17:07 Ondansetron 4 Mg/2 Ml Inj IV Q8H PRN Nausea And Vomiting Pantoprazole Sodium 40 mg 05/09/21 10:00 05/13/21 21:31 Pantoprazole 40 Mg Tab PO 40 mg BID MADISYN Administration Quetiapine Fumarate 25 mg 05/10/21 22:00 05/13/21 21:34 Quetiapine 25 Mg Tab PO 25 mg BID MADISYN Administration Senna 8.6 mg 05/09/21 09:39 Sennosides 8.6 Mg Tab PO HS PRN Constipation Sodium Chloride 10 ml 05/09/21 10:00 05/13/21 21:44 Sodium Chloride 0.9% 10 Ml Flush Syringe IV Not Given BID MADISYN Sodium Chloride 10 ml 05/09/21 09:28 Sodium Chloride 0.9% 10 Ml Flush Syringe IV PRN PRN LINE FLUSH Sodium Chloride 10 ml 05/09/21 22:00 05/13/21 21:44 Sodium Chloride 0.9% 10 Ml Flush Syringe IV Not Given BID MADISYN Sodium Chloride 10 ml 05/09/21 17:07 Sodium Chloride 0.9% 10 Ml Flush Syringe IV PRN PRN LINE FLUSH Sucralfate 1 gm 05/09/21 11:30 05/13/21 21:30 Sucralfate 1 Gm/10 Ml Oral Liqd PO 1 gm ACHS MADISYN Administration Nutrition/Malnutrition Assess - Dietary Evaluation Nutrition/Malnutrition Findings: Nutrition Notes Start: 05/10/21 17:14 Freq: Status: Active Protocol: Document 05/10/21 17:14 RED (Rec: 05/10/21 17:34 RED [id number]) Nutrition Notes Need for Assessment generated from: procedures nurse,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 Labs/Tests 05/10: Na 146, Cl 109.8, Crea 1.3. Pertinent Medications 05/10: Nutritionally unremarkable. 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 Weight Status Obese Subjective/Other Information RD consult for Risk of Malnutrition Assessment. No reports available on Pt's PO intake of meals at the time . Pt shows no signs of concern for risk of malnutrition at the time, according to Physical Assessment History notes. Pt has missing teeth, according to Physical Assessment History notes. Percent of energy/protein needs met: Prescribed Cardiac Diet provides for energy/protein needs (2,230 Kcal/85 g) during LOS. Burn Absent Trauma Absent GI Symptoms None Food Allergy Yes Skin Integrity/Comment Unspecified area of concern. Minimum of two criteria No Is patient on ventilator? No Is Patient Ambulatory and/or Out of Bed Yes REE-([place]-St. Jeor-ambulatory/OOB) [ 1556.893 [id number]] Kcal/Kg value to use for calculation 16 Approximate Energy Requirements Using 1234 kcal/Kg Calculation Used for Recommendations Kcal/kg Additional Notes Protein: 1-1.2 g/Kg; 63-76 g/ day. Fluids: 1 ml/Kcal, or as per MD. Nutrition Intervention Change Diet Order: Continue Cardiac Diet. Goal #1 Maintain body weight within +/ -3% of admission body weight during LOS. Follow-Up By: 05/17/21 Additional Comments Continue monitoring food tolerance, %PO intake of meals , and BM.
[2021-05-14] MEDS: ESCITALOPRAM 10 MG TAB PO SCH (09:35)
[2021-05-14] MEDS: DOCUSATE SODIUM 100 MG CAP PO SCH ×2 (09:35→23:26)
[2021-05-14] MEDS: PANTOPRAZOLE 40 MG TAB PO SCH ×2 (09:35→23:26)
[2021-05-14] MEDS: SUCRALFATE 1 GM/10 ML ORAL LIQD PO SCH ×4 (09:35→23:27)
[2021-05-14] MEDS: QUEtiapine 25 MG TAB PO SCH ×2 (09:35→23:26)
[2021-05-14] MEDS: amLODIPine 5 MG TAB PO SCH (09:36)
[2021-05-14] MEDS: levETIRAcetam 500 MG TAB PO SCH ×2 (09:36→23:26)
[2021-05-14] MEDS: HEPARIN 5,000 UNIT/1 ML VIAL SUB-Q SCH ×2 (09:47→23:28)
[2021-05-14] MEDS: HYDROcodone/ACETAMINOPHEN 5-325 MG TAB PO PRN (13:42)
[2021-05-14] MEDS: LORazepam 2 MG/ML VIAL IV PRN (16:59)
[2021-05-14] MEDS: MIRTAZAPINE 15 MG TAB PO SCH (23:26)
[2021-05-15] MEDS: hydrALAZINE 10 MG TAB PO SCH ×4 (05:13→21:34)
[2021-05-15] MEDS: LORazepam 2 MG/ML VIAL IV PRN (05:19)
[2021-05-15] MEDS: PANTOPRAZOLE 40 MG TAB PO SCH ×2 (10:02→21:30)
[2021-05-15] MEDS: amLODIPine 5 MG TAB PO SCH (10:02)
[2021-05-15] MEDS: DOCUSATE SODIUM 100 MG CAP PO SCH ×2 (10:03→21:30)
[2021-05-15] MEDS: SUCRALFATE 1 GM/10 ML ORAL LIQD PO SCH ×4 (10:03→21:30)
[2021-05-15] MEDS: QUEtiapine 25 MG TAB PO SCH ×2 (10:03→21:30)
[2021-05-15] MEDS: levETIRAcetam 500 MG TAB PO SCH ×2 (10:03→21:30)
[2021-05-15] MEDS: HEPARIN 5,000 UNIT/1 ML VIAL SUB-Q SCH ×2 (10:03→21:30)
[2021-05-15] MEDS: ESCITALOPRAM 10 MG TAB PO SCH (10:03)
--- NOTE | 2021-05-15 14:47 | Progress Note ---
Subjective - Reason for Consult Consult date: 05/15/21 Reason for consult: suicidal attempt - Chief Complaint Chief complaint: The patient was seen today. A sitter is at bedside. She is calm. She states " I was looking for my mama; I was having night rojo." She denies any current suicidal/homicidal ideation and denies hallucinations. ROS: Unable to obtain MENTAL STATUS EXAMINATION Unable to obtain Assessment and Plan (1) Major Depressive Disorder Treatment Plan 1013 Increase Remeron 15mg po qhs Increase Lexapro 20mg po daily Continue Seroquel 25mg po BID Agree with prn lorazepam and seroquel qhs Risks, benefits and alternatives of medications discussed with the patient, questions answered and consent obtained from patient. PSYCHOTHERAPY: Supportive psychotherapy provided MEDICAL: Per primary team DELIRIUM PRECAUTIONS: Please re-orient patient frequently, keep lights on during the day, and minimize benzodiazepines and opiates as these medications could worsen patient's confusion. 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 Please contact with any questions and/or concerns. Case staffed with Dr. Lowery Mental Status Exam - Vital signs Last Vital Signs Temp 97.9 F 05/15/21 03:34 Pulse 78 05/15/21 03:34 Resp 18 05/15/21 03:34 BP 131/52 05/15/21 10:05 Pulse Ox 96 05/15/21 13:47
[2021-05-15] MEDS: HYDROcodone/ACETAMINOPHEN 5-325 MG TAB PO PRN (15:55)
[2021-05-15] MEDS: MIRTAZAPINE 15 MG TAB PO SCH (21:30)
[2021-05-16] MEDS: HYDROcodone/ACETAMINOPHEN 5-325 MG TAB PO PRN ×2 (02:22→14:06)
[2021-05-16] MEDS: hydrALAZINE 10 MG TAB PO SCH ×4 (04:40→21:50)
[2021-05-16] MEDS: HEPARIN 5,000 UNIT/1 ML VIAL SUB-Q SCH ×2 (09:05→21:50)
[2021-05-16] MEDS: QUEtiapine 25 MG TAB PO SCH ×2 (09:06→21:50)
[2021-05-16] MEDS: ESCITALOPRAM 10 MG TAB PO SCH (09:06)
[2021-05-16] MEDS: SUCRALFATE 1 GM/10 ML ORAL LIQD PO SCH ×4 (09:06→21:50)
[2021-05-16] MEDS: PANTOPRAZOLE 40 MG TAB PO SCH ×2 (09:06→21:51)
[2021-05-16] MEDS: levETIRAcetam 500 MG TAB PO SCH ×2 (09:06→21:50)
[2021-05-16] MEDS: DOCUSATE SODIUM 100 MG CAP PO SCH ×2 (09:07→21:50)
[2021-05-16] MEDS: amLODIPine 5 MG TAB PO SCH (09:13)
[2021-05-16] MEDS: LORazepam 2 MG/ML VIAL IV PRN (10:53)
--- NOTE | 2021-05-16 11:45 | Progress Note ---
Assessment and Plan Assessment and plan: #Suicidal ideation -patient denies SI and hallucinations at this time -continue lexapro, seroquel and mirtazipine -currently under 1013 status, psychiatry evaluated the patient, awaiting final recommendations on 1012 #Acute metabolic encephalopathy-resolved -patient with underlyind dementia -likely multifactorial given UTI -will continue to monitor #Acute cystitis with hematuria s/p rocephin x3 days -urine culture grew 10-100k mixed manish, likely dirty catch -treated due to baseline mental status #History of CVA (cerebrovascular accident) #Hypertension #Hyperlipidemia Continue amlodipine 5 mg daily and atorvastatin 20 mg daily Continue to monitor #Seizure disorder No recent seizure Continue Keppra 500 mg BID #Discharge planning -Patient will return back to [facility] tomorrow pending 1013 discontinuance History Interval history: No acute events overnight. Patient cooperative. She has no complaints at this time. Hospitalist Physical - Physical exam Narrative exam: GENERAL: Thin elderly woman. In no acute distress. CHEST/LUNGS: CTAB on room air HEART/CARDIOVASCULAR: RRR. No murmur, rubs or gallops appreciated. ABDOMEN: +BS. NT/ND. SKIN: No rashes noted. NEURO: No focal motor deficit noted. EXTREMITIES: No cyanosis, clubbing or edema. PSYCH: Cooperative. - Constitutional Vitals: Temp Pulse Resp BP Pulse Ox 98.1 F 71 18 100/41 95 05/16/21 04:32 05/16/21 04:32 05/16/21 04:32 05/16/21 04:32 05/16/21 04:32 General appearance: Present: no acute distress, well-nourished, obese Results - Labs CBC & Chem 7: 05/11/21 08:14 05/13/21 07:46 Labs: Laboratory Last Values WBC 6.6 K/mm3 (4.5-11.0) 05/11/21 08:14 RBC 3.06 M/mm3 (3.65-5.03) L 05/11/21 08:14 Hgb 8.6 gm/dl (10.1-14.3) L 05/11/21 08:14 Hct 27.0 % (30.3-42.9) L 05/11/21 08:14 MCV 88 fl (79-97) 05/11/21 08:14 MCH 28 pg (28-32) 05/11/21 08:14 MCHC 32 % (30-34) 05/11/21 08:14 RDW 16.3 % (13.2-15.2) H 05/11/21 08:14 Plt Count 372 K/mm3 (140-440) 05/11/21 08:14 Lymph % (Auto) 21.2 % (13.4-35.0) 05/11/21 08:14 [place] % (Auto) 5.8 % (0.0-7.3) 05/11/21 08:14 Eos % (Auto) 1.7 % (0.0-4.3) 05/11/21 08:14 Baso % (Auto) 0.5 % (0.0-1.8) 05/11/21 08:14 Lymph # (Auto) 1.4 K/mm3 (1.2-5.4) 05/11/21 08:14 [place] # (Auto) 0.4 K/mm3 (0.0-0.8) 05/11/21 08:14 Eos # (Auto) 0.1 K/mm3 (0.0-0.4) 05/11/21 08:14 Baso # (Auto) 0.0 K/mm3 (0.0-0.1) 05/11/21 08:14 Add Manual Diff Complete 05/10/21 04:19 Total Counted 100 05/10/21 04:19 Seg Neutrophils % 70.8 % (40.0-70.0) H 05/11/21 08:14 Seg Neuts % (Manual) 61.0 % (40.0-70.0) 05/10/21 04:19 Band Neutrophils % 0 % 05/10/21 04:19 Lymphocytes % (Manual) 28.0 % (13.4-35.0) 05/10/21 04:19 Reactive Lymphs % (Man) 0 % 05/10/21 04:19 Monocytes % (Manual) 7.0 % (0.0-7.3) 05/10/21 04:19 Eosinophils % (Manual) 4.0 % (0.0-4.3) 05/10/21 04:19 Basophils % (Manual) 0 % (0.0-1.8) 05/10/21 04:19 Metamyelocytes % 0 % 05/10/21 04:19 Myelocytes % 0 % 05/10/21 04:19 Promyelocytes % 0 % 05/10/21 04:19 Blast Cells % 0 % 05/10/21 04:19 Nucleated RBC % Not Reportable 05/10/21 04:19 Seg Neutrophils # 4.7 K/mm3 (1.8-7.7) 05/11/21 08:14 Seg Neutrophils # Man 3.4 K/mm3 (1.8-7.7) 05/10/21 04:19 Band Neutrophils # 0.0 K/mm3 05/10/21 04:19 Lymphocytes # (Manual) 1.6 K/mm3 (1.2-5.4) 05/10/21 04:19 Abs React Lymphs (Man) 0.0 K/mm3 05/10/21 04:19 Monocytes # (Manual) 0.4 K/mm3 (0.0-0.8) 05/10/21 04:19 Eosinophils # (Manual) 0.2 K/mm3 (0.0-0.4) 05/10/21 04:19 Basophils # (Manual) 0.0 K/mm3 (0.0-0.1) 05/10/21 04:19 Metamyelocytes # 0.0 K/mm3 05/10/21 04:19 Myelocytes # 0.0 K/mm3 05/10/21 04:19 Promyelocytes # 0.0 K/mm3 05/10/21 04:19 Blast Cells # 0.0 K/mm3 05/10/21 04:19 WBC Morphology Not Reportable 05/10/21 04:19 Hypersegmented Neuts Not Reportable 05/10/21 04:19 Hyposegmented Neuts Not Reportable 05/10/21 04:19 Hypogranular Neuts Not Reportable 05/10/21 04:19 Smudge Cells Not Reportable 05/10/21 04:19 Toxic Granulation Not Reportable 05/10/21 04:19 Toxic Vacuolation Not Reportable 05/10/21 04:19 Dohle Bodies Not Reportable 05/10/21 04:19 Pelger-Huet Anomaly Not Reportable 05/10/21 04:19 Ward Rods Not Reportable 05/10/21 04:19 Platelet Estimate Consistent w auto 05/10/21 04:19 Clumped Platelets Not Reportable 05/10/21 04:19 Plt Clumps, EDTA Not Reportable 05/10/21 04:19 Large Platelets Not Reportable 05/10/21 04:19 Giant Platelets Not Reportable 05/10/21 04:19 Platelet Satelliting Not Reportable 05/10/21 04:19 Plt Morphology Comment Not Reportable 05/10/21 04:19 RBC Morphology Not Reportable 05/10/21 04:19 Dimorphic RBCs Not Reportable 05/10/21 04:19 Polychromasia Not Reportable 05/10/21 04:19 Hypochromasia Not Reportable 05/10/21 04:19 Poikilocytosis Not Reportable 05/10/21 04:19 Anisocytosis 1+ 05/10/21 04:19 Microcytosis Not Reportable 05/10/21 04:19 Macrocytosis Not Reportable 05/10/21 04:19 Spherocytes Not Reportable 05/10/21 04:19 Pappenheimer Bodies Not Reportable 05/10/21 04:19 Sickle Cells Not Reportable 05/10/21 04:19 Target Cells 1+ 05/10/21 04:19 Tear Drop Cells Not Reportable 05/10/21 04:19 Ovalocytes Not Reportable 05/10/21 04:19 Helmet Cells Not Reportable 05/10/21 04:19 Ulloa-Cleary Bodies Not Reportable 05/10/21 04:19 [place] Rings Not Reportable 05/10/21 04:19 Fabiola Cells Not Reportable 05/10/21 04:19 Bite Cells Not Reportable 05/10/21 04:19 Crenated Cell Not Reportable 05/10/21 04:19 Elliptocytes 1+ 05/10/21 04:19 Acanthocytes (Spur) Not Reportable 05/10/21 04:19 Rouleaux Not Reportable 05/10/21 04:19 Hemoglobin C Crystals Not Reportable 05/10/21 04:19 Schistocytes Not Reportable 05/10/21 04:19 Malaria parasites Not Reportable 05/10/21 04:19 Rodrigo Bodies Not Reportable 05/10/21 04:19 Hem Pathologist Commnt No 05/10/21 04:19 Sodium 144 mmol/L (137-145) 05/13/21 07:46 Potassium 3.4 mmol/L (3.6-5.0) L 05/13/21 07:46 Chloride 112.7 mmol/L (98-107) H 05/13/21 07:46 Carbon Dioxide 19 mmol/L (22-30) L 05/13/21 07:46 Anion Gap 16 mmol/L 05/13/21 07:46 BUN 16 mg/dL (7-17) 05/13/21 07:46 Creatinine 1.8 mg/dL (0.6-1.2) H 05/13/21 07:46 Estimated GFR 33 ml/min 05/13/21 07:46 BUN/Creatinine Ratio 9 % 05/13/21 07:46 Glucose 76 mg/dL (65-100) 05/13/21 07:46 POC Glucose 169 mg/dL (70-105) H 05/12/21 04:27 Calcium 8.5 mg/dL (8.4-10.2) 05/13/21 07:46 Urine Color Yellow (Yellow) 05/08/21 19:05 Urine Turbidity Turbid (Clear) 05/08/21 19:05 Urine pH 6.0 (5.0-7.0) 05/08/21 19:05 Ur Specific [place] 1.013 (1.003-1.030) 05/08/21 19:05 Urine Protein 100 mg/dl mg/dL (Negative) 05/08/21 19:05 Urine Glucose (UA) Neg mg/dL (Negative) 05/08/21 19:05 Urine Ketones Neg mg/dL (Negative) 05/08/21 19:05 Urine Blood Sm (Negative) 05/08/21 19:05 Urine Nitrite Neg (Negative) 05/08/21 19:05 Urine Bilirubin Neg (Negative) 05/08/21 19:05 Urine Urobilinogen < 2.0 mg/dL (<2.0) 05/08/21 19:05 Ur Leukocyte Esterase Mod (Negative) 05/08/21 19:05 Urine WBC (Auto) > 182.0 /HPF (0.0-6.0) H 05/08/21 19:05 Urine RBC (Auto) 31.0 /HPF (0.0-6.0) 05/08/21 19:05 Urine Bacteria (Auto) 1+ /HPF (Negative) 05/08/21 19:05 Urine WBC Clumps 3+ /HPF 05/08/21 19:05 Urine Mucus 2+ /HPF 05/08/21 19:05 Salicylates 0.3 mg/dL (2.8-20.0) L 05/08/21 09:37 Urine Opiates Screen Negative 05/08/21 19:05 Urine Methadone Screen Negative 05/08/21 19:05 Acetaminophen 12.2 ug/mL (10.0-30.0) 05/08/21 09:37 Ur Barbiturates Screen Negative 05/08/21 19:05 Ur Phencyclidine Scrn Negative 05/08/21 19:05 Ur Amphetamines Screen Negative 05/08/21 19:05 U Benzodiazepines Scrn Negative 05/08/21 19:05 Urine Cocaine Screen Negative 05/08/21 19:05 U Marijuana (THC) Screen Presumptive positive 05/08/21 19:05 Drugs of Abuse Note Disclamer 05/08/21 19:05 Plasma/Serum Alcohol < 0.01 % (0-0.07) 05/08/21 09:37 Coronavirus (PCR) Positive (Negative) A 05/13/21 Unknown SARS-CoV-2 (PCR) Negative (Negative) 05/14/21 12:58 Blood Type O POSITIVE 05/09/21 10:20 Antibody Screen Negative 05/09/21 10:20 [place]/IV: Voiding Method Indwelling Catheter Active Medications - Current Medications Current Medications: Generic Name Dose Route Start Last Admin Trade Name Freq PRN Reason Stop Dose Admin Acetaminophen 650 mg 05/09/21 17:07 Acetaminophen 325 Mg Tab PO Q4H PRN Pain MILD(1-3)/Fever >100.5/SEE Hydrocodone Bitart/Acetaminophen 2 each 05/09/21 09:28 05/16/21 02:22 Hydrocodone/Acetaminophen 5-325 Mg Tab PO 2 each Q6H PRN Administration Pain, Moderate (4-6) Amlodipine Besylate 5 mg 05/09/21 10:00 05/16/21 09:13 Amlodipine 5 Mg Tab PO 5 mg DAILY MADISYN Administration Dicyclomine HCl 10 mg 05/09/21 09:35 Dicyclomine 10 Mg Cap PO BID PRN stomach cramps Docusate Sodium 100 mg 05/09/21 10:00 05/16/21 09:07 Docusate Sodium 100 Mg Cap PO 100 mg BID MADISYN Administration Escitalopram Oxalate 20 mg 05/14/21 10:00 05/16/21 09:06 Escitalopram 10 Mg Tab PO 20 mg QDAY MADISYN Administration Heparin Sodium (Porcine) 5,000 unit 05/09/21 22:00 05/16/21 09:05 Heparin 5,000 Unit/1 Ml Vial SUB-Q 5,000 unit Q12HR MADISYN Administration Hydralazine HCl 10 mg 05/09/21 10:00 05/16/21 10:53 Hydralazine 10 Mg Tab PO 10 mg Q6H MADISYN Administration Sodium Chloride 1,000 mls @ 100 mls/hr 05/09/21 09:30 05/11/21 21:47 Nacl 0.9% 1000 Ml IV 100 mls/hr DIRECT MADISYN Administration Levetiracetam 500 mg 05/09/21 10:00 05/16/21 09:06 Levetiracetam 500 Mg Tab PO 500 mg BID MADISYN Administration Lorazepam 1 mg 05/09/21 09:28 05/16/21 10:53 Lorazepam 2 Mg/Ml Vial IV 1 mg Q6H PRN Administration Agitation Mirtazapine 15 mg 05/13/21 22:00 05/15/21 21:30 Mirtazapine 15 Mg Tab PO 15 mg QHS MADISYN Administration Morphine Sulfate 2 mg 05/09/21 17:07 05/13/21 21:54 Morphine 2 Mg/1 Ml Inj IV 2 mg Q4H PRN Administration Pain, Moderate (4-6) Ondansetron HCl 4 mg 05/09/21 09:28 Ondansetron 4 Mg/2 Ml Inj IV Q8H PRN Nausea And Vomiting Pantoprazole Sodium 40 mg 05/09/21 10:00 05/16/21 09:06 Pantoprazole 40 Mg Tab PO 40 mg BID MADISYN Administration Quetiapine Fumarate 25 mg 05/10/21 22:00 05/16/21 09:06 Quetiapine 25 Mg Tab PO 25 mg BID MADISYN Administration Senna 8.6 mg 05/09/21 09:39 Sennosides 8.6 Mg Tab PO HS PRN Constipation Sodium Chloride 10 ml 05/09/21 10:00 05/16/21 09:07 Sodium Chloride 0.9% 10 Ml Flush Syringe IV 10 ml BID MADISYN Administration Sodium Chloride 10 ml 05/09/21 09:28 Sodium Chloride 0.9% 10 Ml Flush Syringe IV PRN PRN LINE FLUSH Sodium Chloride 10 ml 05/09/21 22:00 05/15/21 21:31 Sodium Chloride 0.9% 10 Ml Flush Syringe IV 10 ml BID MADISYN Administration Sodium Chloride 10 ml 05/09/21 17:07 Sodium Chloride 0.9% 10 Ml Flush Syringe IV PRN PRN LINE FLUSH Sucralfate 1 gm 05/09/21 11:30 05/16/21 09:06 Sucralfate 1 Gm/10 Ml Oral Liqd PO 1 gm ACHS MADISYN Administration Nutrition/Malnutrition Assess - Dietary Evaluation Nutrition/Malnutrition Findings: Nutrition Notes Start: 05/10/21 17:14 Freq: Status: Active Protocol: Document 05/10/21 17:14 RED (Rec: 05/10/21 17:34 RED [id number]) Nutrition Notes Need for Assessment generated from: yoga coordinator,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 Labs/Tests 05/10: Na 146, Cl 109.8, Crea 1.3. Pertinent Medications 05/10: Nutritionally unremarkable. 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 Weight Status Obese Subjective/Other Information RD consult for Risk of Malnutrition Assessment. No reports available on Pt's PO intake of meals at the time . Pt shows no signs of concern for risk of malnutrition at the time, according to Physical Assessment History notes. Pt has missing teeth, according to Physical Assessment History notes. Percent of energy/protein needs met: Prescribed Cardiac Diet provides for energy/protein needs (2,230 Kcal/85 g) during LOS. Burn Absent Trauma Absent GI Symptoms None Food Allergy Yes Skin Integrity/Comment Unspecified area of concern. Minimum of two criteria No Is patient on ventilator? No Is Patient Ambulatory and/or Out of Bed Yes REE-(Hurley-St. Jeor-ambulatory/OOB) [ 5376.893 [id number]] Kcal/Kg value to use for calculation 16 Approximate Energy Requirements Using 1234 kcal/Kg Calculation Used for Recommendations Kcal/kg Additional Notes Protein: 1-1.2 g/Kg; 63-76 g/ day. Fluids: 1 ml/Kcal, or as per MD. Nutrition Intervention Change Diet Order: Continue Cardiac Diet. Goal #1 Maintain body weight within +/ -3% of admission body weight during LOS. Follow-Up By: 05/17/21 Additional Comments Continue monitoring food tolerance, %PO intake of meals , and BM.
--- NOTE | 2021-05-16 11:49 | Progress Note ---
Assessment and Plan Assessment and plan: #Suicidal ideation -patient denies SI and hallucinations at this time -continue lexapro, seroquel and mirtazipine -currently under 1013 status, will continue per Psychiatry recommendations #Acute metabolic encephalopathy-resolved -patient with underlyind dementia -likely multifactorial given UTI -will continue to monitor #Acute cystitis with hematuria s/p rocephin x3 days -urine culture grew 10-100k mixed manish, likely dirty catch -treated due to baseline mental status #History of CVA (cerebrovascular accident) #Hypertension #Hyperlipidemia Continue amlodipine 5 mg daily and atorvastatin 20 mg daily Continue to monitor #Seizure disorder No recent seizure Continue Keppra 500 mg BID #Discharge planning -Patient will return back to [facility] tomorrow pending 1013 discontinuance History Interval history: No acute events overnight. Patient cooperative. Denies suicidal ideation. She has no complaints at this time. Hospitalist Physical - Physical exam Narrative exam: GENERAL: Elderly woman. In no acute distress. CHEST/LUNGS: CTAB on room air HEART/CARDIOVASCULAR: RRR. No murmur, rubs or gallops appreciated. ABDOMEN: +BS. NT/ND. SKIN: No rashes noted. NEURO: No focal motor deficit noted. EXTREMITIES: No cyanosis, clubbing or edema. PSYCH: Cooperative. - Constitutional Vitals: Temp Pulse Resp BP Pulse Ox 98.1 F 71 18 100/41 95 05/16/21 04:32 05/16/21 04:32 05/16/21 04:32 05/16/21 04:32 05/16/21 04:32 General appearance: Present: no acute distress, well-nourished, obese Results - Labs CBC & Chem 7: 05/11/21 08:14 05/13/21 07:46 Labs: Laboratory Last Values WBC 6.6 K/mm3 (4.5-11.0) 05/11/21 08:14 RBC 3.06 M/mm3 (3.65-5.03) L 05/11/21 08:14 Hgb 8.6 gm/dl (10.1-14.3) L 05/11/21 08:14 Hct 27.0 % (30.3-42.9) L 05/11/21 08:14 MCV 88 fl (79-97) 05/11/21 08:14 MCH 28 pg (28-32) 05/11/21 08:14 MCHC 32 % (30-34) 05/11/21 08:14 RDW 16.3 % (13.2-15.2) H 05/11/21 08:14 Plt Count 372 K/mm3 (140-440) 05/11/21 08:14 Lymph % (Auto) 21.2 % (13.4-35.0) 05/11/21 08:14 [place] % (Auto) 5.8 % (0.0-7.3) 05/11/21 08:14 Eos % (Auto) 1.7 % (0.0-4.3) 05/11/21 08:14 Baso % (Auto) 0.5 % (0.0-1.8) 05/11/21 08:14 Lymph # (Auto) 1.4 K/mm3 (1.2-5.4) 05/11/21 08:14 [place] # (Auto) 0.4 K/mm3 (0.0-0.8) 05/11/21 08:14 Eos # (Auto) 0.1 K/mm3 (0.0-0.4) 05/11/21 08:14 Baso # (Auto) 0.0 K/mm3 (0.0-0.1) 05/11/21 08:14 Add Manual Diff Complete 05/10/21 04:19 Total Counted 100 05/10/21 04:19 Seg Neutrophils % 70.8 % (40.0-70.0) H 05/11/21 08:14 Seg Neuts % (Manual) 61.0 % (40.0-70.0) 05/10/21 04:19 Band Neutrophils % 0 % 05/10/21 04:19 Lymphocytes % (Manual) 28.0 % (13.4-35.0) 05/10/21 04:19 Reactive Lymphs % (Man) 0 % 05/10/21 04:19 Monocytes % (Manual) 7.0 % (0.0-7.3) 05/10/21 04:19 Eosinophils % (Manual) 4.0 % (0.0-4.3) 05/10/21 04:19 Basophils % (Manual) 0 % (0.0-1.8) 05/10/21 04:19 Metamyelocytes % 0 % 05/10/21 04:19 Myelocytes % 0 % 05/10/21 04:19 Promyelocytes % 0 % 05/10/21 04:19 Blast Cells % 0 % 05/10/21 04:19 Nucleated RBC % Not Reportable 05/10/21 04:19 Seg Neutrophils # 4.7 K/mm3 (1.8-7.7) 05/11/21 08:14 Seg Neutrophils # Man 3.4 K/mm3 (1.8-7.7) 05/10/21 04:19 Band Neutrophils # 0.0 K/mm3 05/10/21 04:19 Lymphocytes # (Manual) 1.6 K/mm3 (1.2-5.4) 05/10/21 04:19 Abs React Lymphs (Man) 0.0 K/mm3 05/10/21 04:19 Monocytes # (Manual) 0.4 K/mm3 (0.0-0.8) 05/10/21 04:19 Eosinophils # (Manual) 0.2 K/mm3 (0.0-0.4) 05/10/21 04:19 Basophils # (Manual) 0.0 K/mm3 (0.0-0.1) 05/10/21 04:19 Metamyelocytes # 0.0 K/mm3 05/10/21 04:19 Myelocytes # 0.0 K/mm3 05/10/21 04:19 Promyelocytes # 0.0 K/mm3 05/10/21 04:19 Blast Cells # 0.0 K/mm3 05/10/21 04:19 WBC Morphology Not Reportable 05/10/21 04:19 Hypersegmented Neuts Not Reportable 05/10/21 04:19 Hyposegmented Neuts Not Reportable 05/10/21 04:19 Hypogranular Neuts Not Reportable 05/10/21 04:19 Smudge Cells Not Reportable 05/10/21 04:19 Toxic Granulation Not Reportable 05/10/21 04:19 Toxic Vacuolation Not Reportable 05/10/21 04:19 Dohle Bodies Not Reportable 05/10/21 04:19 Pelger-Huet Anomaly Not Reportable 05/10/21 04:19 Ward Rods Not Reportable 05/10/21 04:19 Platelet Estimate Consistent w auto 05/10/21 04:19 Clumped Platelets Not Reportable 05/10/21 04:19 Plt Clumps, EDTA Not Reportable 05/10/21 04:19 Large Platelets Not Reportable 05/10/21 04:19 Giant Platelets Not Reportable 05/10/21 04:19 Platelet Satelliting Not Reportable 05/10/21 04:19 Plt Morphology Comment Not Reportable 05/10/21 04:19 RBC Morphology Not Reportable 05/10/21 04:19 Dimorphic RBCs Not Reportable 05/10/21 04:19 Polychromasia Not Reportable 05/10/21 04:19 Hypochromasia Not Reportable 05/10/21 04:19 Poikilocytosis Not Reportable 05/10/21 04:19 Anisocytosis 1+ 05/10/21 04:19 Microcytosis Not Reportable 05/10/21 04:19 Macrocytosis Not Reportable 05/10/21 04:19 Spherocytes Not Reportable 05/10/21 04:19 Pappenheimer Bodies Not Reportable 05/10/21 04:19 Sickle Cells Not Reportable 05/10/21 04:19 Target Cells 1+ 05/10/21 04:19 Tear Drop Cells Not Reportable 05/10/21 04:19 Ovalocytes Not Reportable 05/10/21 04:19 Helmet Cells Not Reportable 05/10/21 04:19 [place] Bodies Not Reportable 05/10/21 04:19 [place] Rings Not Reportable 05/10/21 04:19 [place] Cells Not Reportable 05/10/21 04:19 Bite Cells Not Reportable 05/10/21 04:19 Crenated Cell Not Reportable 05/10/21 04:19 Elliptocytes 1+ 05/10/21 04:19 Acanthocytes (Spur) Not Reportable 05/10/21 04:19 Rouleaux Not Reportable 05/10/21 04:19 Hemoglobin C Crystals Not Reportable 05/10/21 04:19 Schistocytes Not Reportable 05/10/21 04:19 Malaria parasites Not Reportable 05/10/21 04:19 Rodrigo Bodies Not Reportable 05/10/21 04:19 Hem Pathologist Commnt No 05/10/21 04:19 Sodium 144 mmol/L (137-145) 05/13/21 07:46 Potassium 3.4 mmol/L (3.6-5.0) L 05/13/21 07:46 Chloride 112.7 mmol/L (98-107) H 05/13/21 07:46 Carbon Dioxide 19 mmol/L (22-30) L 05/13/21 07:46 Anion Gap 16 mmol/L 05/13/21 07:46 BUN 16 mg/dL (7-17) 05/13/21 07:46 Creatinine 1.8 mg/dL (0.6-1.2) H 05/13/21 07:46 Estimated GFR 33 ml/min 05/13/21 07:46 BUN/Creatinine Ratio 9 % 05/13/21 07:46 Glucose 76 mg/dL (65-100) 05/13/21 07:46 POC Glucose 169 mg/dL (70-105) H 05/12/21 04:27 Calcium 8.5 mg/dL (8.4-10.2) 05/13/21 07:46 Urine Color Yellow (Yellow) 05/08/21 19:05 Urine Turbidity Turbid (Clear) 05/08/21 19:05 Urine pH 6.0 (5.0-7.0) 05/08/21 19:05 Ur Specific [place] 1.013 (1.003-1.030) 05/08/21 19:05 Urine Protein 100 mg/dl mg/dL (Negative) 05/08/21 19:05 Urine Glucose (UA) Neg mg/dL (Negative) 05/08/21 19:05 Urine Ketones Neg mg/dL (Negative) 05/08/21 19:05 Urine Blood Sm (Negative) 05/08/21 19:05 Urine Nitrite Neg (Negative) 05/08/21 19:05 Urine Bilirubin Neg (Negative) 05/08/21 19:05 Urine Urobilinogen < 2.0 mg/dL (<2.0) 05/08/21 19:05 Ur Leukocyte Esterase Mod (Negative) 05/08/21 19:05 Urine WBC (Auto) > 182.0 /HPF (0.0-6.0) H 05/08/21 19:05 Urine RBC (Auto) 31.0 /HPF (0.0-6.0) 05/08/21 19:05 Urine Bacteria (Auto) 1+ /HPF (Negative) 05/08/21 19:05 Urine WBC Clumps 3+ /HPF 05/08/21 19:05 Urine Mucus 2+ /HPF 05/08/21 19:05 Salicylates 0.3 mg/dL (2.8-20.0) L 05/08/21 09:37 Urine Opiates Screen Negative 05/08/21 19:05 Urine Methadone Screen Negative 05/08/21 19:05 Acetaminophen 12.2 ug/mL (10.0-30.0) 05/08/21 09:37 Ur Barbiturates Screen Negative 05/08/21 19:05 Ur Phencyclidine Scrn Negative 05/08/21 19:05 Ur Amphetamines Screen Negative 05/08/21 19:05 U Benzodiazepines Scrn Negative 05/08/21 19:05 Urine Cocaine Screen Negative 05/08/21 19:05 U Marijuana (THC) Screen Presumptive positive 05/08/21 19:05 Drugs of Abuse Note Disclamer 05/08/21 19:05 Plasma/Serum Alcohol < 0.01 % (0-0.07) 05/08/21 09:37 Coronavirus (PCR) Positive (Negative) A 05/13/21 Unknown SARS-CoV-2 (PCR) Negative (Negative) 05/14/21 12:58 Blood Type O POSITIVE 05/09/21 10:20 Antibody Screen Negative 05/09/21 10:20 [place]/IV: Voiding Method Indwelling Catheter Active Medications - Current Medications Current Medications: Generic Name Dose Route Start Last Admin Trade Name Freq PRN Reason Stop Dose Admin Acetaminophen 650 mg 05/09/21 17:07 Acetaminophen 325 Mg Tab PO Q4H PRN Pain MILD(1-3)/Fever >100.5/SEE Hydrocodone Bitart/Acetaminophen 2 each 05/09/21 09:28 05/16/21 02:22 Hydrocodone/Acetaminophen 5-325 Mg Tab PO 2 each Q6H PRN Administration Pain, Moderate (4-6) Amlodipine Besylate 5 mg 05/09/21 10:00 05/16/21 09:13 Amlodipine 5 Mg Tab PO 5 mg DAILY MADISYN Administration Dicyclomine HCl 10 mg 05/09/21 09:35 Dicyclomine 10 Mg Cap PO BID PRN stomach cramps Docusate Sodium 100 mg 05/09/21 10:00 05/16/21 09:07 Docusate Sodium 100 Mg Cap PO 100 mg BID MADISYN Administration Escitalopram Oxalate 20 mg 05/14/21 10:00 05/16/21 09:06 Escitalopram 10 Mg Tab PO 20 mg QDAY MADISYN Administration Heparin Sodium (Porcine) 5,000 unit 05/09/21 22:00 05/16/21 09:05 Heparin 5,000 Unit/1 Ml Vial SUB-Q 5,000 unit Q12HR MADISYN Administration Hydralazine HCl 10 mg 05/09/21 10:00 05/16/21 10:53 Hydralazine 10 Mg Tab PO 10 mg Q6H MADISYN Administration Sodium Chloride 1,000 mls @ 100 mls/hr 05/09/21 09:30 05/11/21 21:47 Nacl 0.9% 1000 Ml IV 100 mls/hr DIRECT MADISYN Administration Levetiracetam 500 mg 05/09/21 10:00 05/16/21 09:06 Levetiracetam 500 Mg Tab PO 500 mg BID MADISYN Administration Lorazepam 1 mg 05/09/21 09:28 05/16/21 10:53 Lorazepam 2 Mg/Ml Vial IV 1 mg Q6H PRN Administration Agitation Mirtazapine 15 mg 05/13/21 22:00 05/15/21 21:30 Mirtazapine 15 Mg Tab PO 15 mg QHS MADISYN Administration Morphine Sulfate 2 mg 05/09/21 17:07 05/13/21 21:54 Morphine 2 Mg/1 Ml Inj IV 2 mg Q4H PRN Administration Pain, Moderate (4-6) Ondansetron HCl 4 mg 05/09/21 09:28 Ondansetron 4 Mg/2 Ml Inj IV Q8H PRN Nausea And Vomiting Pantoprazole Sodium 40 mg 05/09/21 10:00 05/16/21 09:06 Pantoprazole 40 Mg Tab PO 40 mg BID MADISYN Administration Quetiapine Fumarate 25 mg 05/10/21 22:00 05/16/21 09:06 Quetiapine 25 Mg Tab PO 25 mg BID MADISYN Administration Senna 8.6 mg 05/09/21 09:39 Sennosides 8.6 Mg Tab PO HS PRN Constipation Sodium Chloride 10 ml 05/09/21 10:00 05/16/21 09:07 Sodium Chloride 0.9% 10 Ml Flush Syringe IV 10 ml BID MADISYN Administration Sodium Chloride 10 ml 05/09/21 09:28 Sodium Chloride 0.9% 10 Ml Flush Syringe IV PRN PRN LINE FLUSH Sodium Chloride 10 ml 05/09/21 22:00 05/15/21 21:31 Sodium Chloride 0.9% 10 Ml Flush Syringe IV 10 ml BID MADISYN Administration Sodium Chloride 10 ml 05/09/21 17:07 Sodium Chloride 0.9% 10 Ml Flush Syringe IV PRN PRN LINE FLUSH Sucralfate 1 gm 05/09/21 11:30 05/16/21 09:06 Sucralfate 1 Gm/10 Ml Oral Liqd PO 1 gm ACHS MADISYN Administration Nutrition/Malnutrition Assess - Dietary Evaluation Nutrition/Malnutrition Findings: Nutrition Notes Start: 05/10/21 17:14 Freq: Status: Active Protocol: Document 05/10/21 17:14 RED (Rec: 05/10/21 17:34 RED [id number]) Nutrition Notes Need for Assessment generated from: inside outside sales representative,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 Labs/Tests 05/10: Na 146, Cl 109.8, Crea 1.3. Pertinent Medications 05/10: Nutritionally unremarkable. Height 5 ft Weight 77.111 kg [place] Body Weight (kg) 45.45 BMI 33.2 Intake Prior to Admission Good Weight change and time frame Pt states being unsure if loss body weight INSOLE [employer]OTT[employer]ER. Weight Status Obese Subjective/Other Information RD consult for Risk of Malnutrition Assessment. No reports available on Pt's PO intake of meals at the time . Pt shows no signs of concern for risk of malnutrition at the time, according to Physical Assessment History notes. Pt has missing teeth, according to Physical Assessment History notes. Percent of energy/protein needs met: Prescribed Cardiac Diet provides for energy/protein needs (2,230 Kcal/85 g) during LOS. Burn Absent Trauma Absent GI Symptoms None Food Allergy Yes Skin Integrity/Comment Unspecified area of concern. Minimum of two criteria No Is patient on ventilator? No Is Patient Ambulatory and/or Out of Bed Yes REE-([place]-St. Jeor-ambulatory/OOB) [ 1556.893 [id number]] Kcal/Kg value to use for calculation 16 Approximate Energy Requirements Using 1234 kcal/Kg Calculation Used for Recommendations Kcal/kg Additional Notes Protein: 1-1.2 g/Kg; 63-76 g/ day. Fluids: 1 ml/Kcal, or as per MD. Nutrition Intervention Change Diet Order: Continue Cardiac Diet. Goal #1 Maintain body weight within +/ -3% of admission body weight during LOS. Follow-Up By: 05/17/21 Additional Comments Continue monitoring food tolerance, %PO intake of meals , and BM.
[2021-05-16] MEDS: FREE WATER PO SCH ×3 (11:56→21:53)
[2021-05-16] MEDS: MIRTAZAPINE 15 MG TAB PO SCH (21:50)
[2021-05-17] MEDS: hydrALAZINE 10 MG TAB PO SCH ×4 (04:49→21:49)
[2021-05-17] MEDS: SUCRALFATE 1 GM/10 ML ORAL LIQD PO SCH ×4 (08:46→21:45)
[2021-05-17] MEDS: FREE WATER PO SCH ×4 (08:47→21:47)
[2021-05-17 09:26] LABS: Calcium 9.2 mg/dL (8.4-10.2)
[2021-05-17] MEDS: DOCUSATE SODIUM 100 MG CAP PO SCH ×2 (10:07→21:45)
[2021-05-17] MEDS: levETIRAcetam 500 MG TAB PO SCH ×2 (10:08→21:45)
[2021-05-17] MEDS: amLODIPine 5 MG TAB PO SCH (10:08)
[2021-05-17] MEDS: ESCITALOPRAM 10 MG TAB PO SCH (10:08)
[2021-05-17] MEDS: HEPARIN 5,000 UNIT/1 ML VIAL SUB-Q SCH ×2 (10:08→21:46)
[2021-05-17] MEDS: QUEtiapine 25 MG TAB PO SCH ×2 (10:08→21:45)
[2021-05-17] MEDS: PANTOPRAZOLE 40 MG TAB PO SCH ×2 (10:08→21:45)
[2021-05-17] MEDS: HYDROcodone/ACETAMINOPHEN 5-325 MG TAB PO PRN (11:31)
--- NOTE | 2021-05-17 13:10 | Progress Note ---
Assessment and Plan Assessment and plan: #Suicidal ideation -patient denies SI and hallucinations at this time -continue lexapro, seroquel and mirtazipine -currently under 1013 status, will continue per Psychiatry recommendations #Acute metabolic encephalopathy-resolved -patient with underlyind dementia -likely multifactorial given UTI -will continue to monitor #Acute cystitis with hematuria s/p rocephin x3 days -urine culture grew 10-100k mixed manish, likely dirty catch -treated due to baseline mental status #History of CVA (cerebrovascular accident) #Hypertension #Hyperlipidemia Continue amlodipine 5 mg daily and atorvastatin 20 mg daily Continue to monitor #Seizure disorder No recent seizure Continue Keppra 500 mg BID #Discharge planning -Patient will return back to [facility] tomorrow pending 1013 discontinuance #Advance care planning -Disease education, care plan, diagnosis, prognosis discussed with next of kin/Granddaughter Ms. Trista Mike. Family understands and acknowledges current plan. -Time: +30 minutes History Interval history: No acute events overnight. Patient tearful, wanting to get out of bed. No other complaints at this time. Hospitalist Physical - Physical exam Narrative exam: GENERAL: Elderly woman. In no acute distress. CHEST/LUNGS: CTAB on room air HEART/CARDIOVASCULAR: RRR. No murmur, rubs or gallops appreciated. ABDOMEN: +BS. NT/ND. SKIN: No rashes noted. NEURO: No focal motor deficit noted. EXTREMITIES: No cyanosis, clubbing or edema. PSYCH: Tearful. - Constitutional Vitals: Temp Pulse Resp BP Pulse Ox 98.6 F 88 20 106/50 97 05/17/21 03:36 05/17/21 10:08 05/17/21 10:00 05/17/21 10:08 05/17/21 10:00 General appearance: Present: no acute distress, well-nourished, obese Results - Labs CBC & Chem 7: 05/11/21 08:14 05/17/21 08:32 Labs: Laboratory Last Values WBC 6.6 K/mm3 (4.5-11.0) 05/11/21 08:14 RBC 3.06 M/mm3 (3.65-5.03) L 05/11/21 08:14 Hgb 8.6 gm/dl (10.1-14.3) L 05/11/21 08:14 Hct 27.0 % (30.3-42.9) L 05/11/21 08:14 MCV 88 fl (79-97) 05/11/21 08:14 MCH 28 pg (28-32) 05/11/21 08:14 MCHC 32 % (30-34) 05/11/21 08:14 RDW 16.3 % (13.2-15.2) H 05/11/21 08:14 Plt Count 372 K/mm3 (140-440) 05/11/21 08:14 Lymph % (Auto) 21.2 % (13.4-35.0) 05/11/21 08:14 [place] % (Auto) 5.8 % (0.0-7.3) 05/11/21 08:14 Eos % (Auto) 1.7 % (0.0-4.3) 05/11/21 08:14 Baso % (Auto) 0.5 % (0.0-1.8) 05/11/21 08:14 Lymph # (Auto) 1.4 K/mm3 (1.2-5.4) 05/11/21 08:14 [place] # (Auto) 0.4 K/mm3 (0.0-0.8) 05/11/21 08:14 Eos # (Auto) 0.1 K/mm3 (0.0-0.4) 05/11/21 08:14 Baso # (Auto) 0.0 K/mm3 (0.0-0.1) 05/11/21 08:14 Add Manual Diff Complete 05/10/21 04:19 Total Counted 100 05/10/21 04:19 Seg Neutrophils % 70.8 % (40.0-70.0) H 05/11/21 08:14 Seg Neuts % (Manual) 61.0 % (40.0-70.0) 05/10/21 04:19 Band Neutrophils % 0 % 05/10/21 04:19 Lymphocytes % (Manual) 28.0 % (13.4-35.0) 05/10/21 04:19 Reactive Lymphs % (Man) 0 % 05/10/21 04:19 Monocytes % (Manual) 7.0 % (0.0-7.3) 05/10/21 04:19 Eosinophils % (Manual) 4.0 % (0.0-4.3) 05/10/21 04:19 Basophils % (Manual) 0 % (0.0-1.8) 05/10/21 04:19 Metamyelocytes % 0 % 05/10/21 04:19 Myelocytes % 0 % 05/10/21 04:19 Promyelocytes % 0 % 05/10/21 04:19 Blast Cells % 0 % 05/10/21 04:19 Nucleated RBC % Not Reportable 05/10/21 04:19 Seg Neutrophils # 4.7 K/mm3 (1.8-7.7) 05/11/21 08:14 Seg Neutrophils # Man 3.4 K/mm3 (1.8-7.7) 05/10/21 04:19 Band Neutrophils # 0.0 K/mm3 05/10/21 04:19 Lymphocytes # (Manual) 1.6 K/mm3 (1.2-5.4) 05/10/21 04:19 Abs React Lymphs (Man) 0.0 K/mm3 05/10/21 04:19 Monocytes # (Manual) 0.4 K/mm3 (0.0-0.8) 05/10/21 04:19 Eosinophils # (Manual) 0.2 K/mm3 (0.0-0.4) 05/10/21 04:19 Basophils # (Manual) 0.0 K/mm3 (0.0-0.1) 05/10/21 04:19 Metamyelocytes # 0.0 K/mm3 05/10/21 04:19 Myelocytes # 0.0 K/mm3 05/10/21 04:19 Promyelocytes # 0.0 K/mm3 05/10/21 04:19 Blast Cells # 0.0 K/mm3 05/10/21 04:19 WBC Morphology Not Reportable 05/10/21 04:19 Hypersegmented Neuts Not Reportable 05/10/21 04:19 Hyposegmented Neuts Not Reportable 05/10/21 04:19 Hypogranular Neuts Not Reportable 05/10/21 04:19 Smudge Cells Not Reportable 05/10/21 04:19 Toxic Granulation Not Reportable 05/10/21 04:19 Toxic Vacuolation Not Reportable 05/10/21 04:19 Dohle Bodies Not Reportable 05/10/21 04:19 Pelger-Huet Anomaly Not Reportable 05/10/21 04:19 Ward Rods Not Reportable 05/10/21 04:19 Platelet Estimate Consistent w auto 05/10/21 04:19 Clumped Platelets Not Reportable 05/10/21 04:19 Plt Clumps, EDTA Not Reportable 05/10/21 04:19 Large Platelets Not Reportable 05/10/21 04:19 Giant Platelets Not Reportable 05/10/21 04:19 Platelet Satelliting Not Reportable 05/10/21 04:19 Plt Morphology Comment Not Reportable 05/10/21 04:19 RBC Morphology Not Reportable 05/10/21 04:19 Dimorphic RBCs Not Reportable 05/10/21 04:19 Polychromasia Not Reportable 05/10/21 04:19 Hypochromasia Not Reportable 05/10/21 04:19 Poikilocytosis Not Reportable 05/10/21 04:19 Anisocytosis 1+ 05/10/21 04:19 Microcytosis Not Reportable 05/10/21 04:19 Macrocytosis Not Reportable 05/10/21 04:19 Spherocytes Not Reportable 05/10/21 04:19 Pappenheimer Bodies Not Reportable 05/10/21 04:19 Sickle Cells Not Reportable 05/10/21 04:19 Target Cells 1+ 05/10/21 04:19 Tear Drop Cells Not Reportable 05/10/21 04:19 Ovalocytes Not Reportable 05/10/21 04:19 Helmet Cells Not Reportable 05/10/21 04:19 [place] Bodies Not Reportable 05/10/21 04:19 [place] Rings Not Reportable 05/10/21 04:19 [place] Cells Not Reportable 05/10/21 04:19 Bite Cells Not Reportable 05/10/21 04:19 Crenated Cell Not Reportable 05/10/21 04:19 Elliptocytes 1+ 05/10/21 04:19 Acanthocytes (Spur) Not Reportable 05/10/21 04:19 Rouleaux Not Reportable 05/10/21 04:19 Hemoglobin C Crystals Not Reportable 05/10/21 04:19 Schistocytes Not Reportable 05/10/21 04:19 Malaria parasites Not Reportable 05/10/21 04:19 Rodrigo Bodies Not Reportable 05/10/21 04:19 Hem Pathologist Commnt No 05/10/21 04:19 Sodium 144 mmol/L (137-145) 05/17/21 08:32 Potassium 3.5 mmol/L (3.6-5.0) L 05/17/21 08:32 Chloride 113.3 mmol/L (98-107) H 05/17/21 08:32 Carbon Dioxide 19 mmol/L (22-30) L 05/17/21 08:32 Anion Gap 15 mmol/L 05/17/21 08:32 BUN 24 mg/dL (7-17) H 05/17/21 08:32 Creatinine 1.8 mg/dL (0.6-1.2) H 05/17/21 08:32 Estimated GFR 33 ml/min 05/17/21 08:32 BUN/Creatinine Ratio 13 % 05/17/21 08:32 Glucose 93 mg/dL (65-100) 05/17/21 08:32 POC Glucose 93 mg/dL (70-105) 05/16/21 21:29 Calcium 9.2 mg/dL (8.4-10.2) 05/17/21 08:32 Urine Color Yellow (Yellow) 05/08/21 19:05 Urine Turbidity Turbid (Clear) 05/08/21 19:05 Urine pH 6.0 (5.0-7.0) 05/08/21 19:05 Ur Specific [place] 1.013 (1.003-1.030) 05/08/21 19:05 Urine Protein 100 mg/dl mg/dL (Negative) 05/08/21 19:05 Urine Glucose (UA) Neg mg/dL (Negative) 05/08/21 19:05 Urine Ketones Neg mg/dL (Negative) 05/08/21 19:05 Urine Blood Sm (Negative) 05/08/21 19:05 Urine Nitrite Neg (Negative) 05/08/21 19:05 Urine Bilirubin Neg (Negative) 05/08/21 19:05 Urine Urobilinogen < 2.0 mg/dL (<2.0) 05/08/21 19:05 Ur Leukocyte Esterase Mod (Negative) 05/08/21 19:05 Urine WBC (Auto) > 182.0 /HPF (0.0-6.0) H 05/08/21 19:05 Urine RBC (Auto) 31.0 /HPF (0.0-6.0) 05/08/21 19:05 Urine Bacteria (Auto) 1+ /HPF (Negative) 05/08/21 19:05 Urine WBC Clumps 3+ /HPF 05/08/21 19:05 Urine Mucus 2+ /HPF 05/08/21 19:05 Salicylates 0.3 mg/dL (2.8-20.0) L 05/08/21 09:37 Urine Opiates Screen Negative 05/08/21 19:05 Urine Methadone Screen Negative 05/08/21 19:05 Acetaminophen 12.2 ug/mL (10.0-30.0) 05/08/21 09:37 Ur Barbiturates Screen Negative 05/08/21 19:05 Ur Phencyclidine Scrn Negative 05/08/21 19:05 Ur Amphetamines Screen Negative 05/08/21 19:05 U Benzodiazepines Scrn Negative 05/08/21 19:05 Urine Cocaine Screen Negative 05/08/21 19:05 U Marijuana (THC) Screen Presumptive positive 05/08/21 19:05 Drugs of Abuse Note Disclamer 05/08/21 19:05 Plasma/Serum Alcohol < 0.01 % (0-0.07) 05/08/21 09:37 Coronavirus (PCR) Positive (Negative) A 05/13/21 Unknown SARS-CoV-2 (PCR) Negative (Negative) 05/14/21 12:58 Blood Type O POSITIVE 05/09/21 10:20 Antibody Screen Negative 05/09/21 10:20 Bras[place]/IV: Voiding Method Incontinent Active Medications - Current Medications Current Medications: Generic Name Dose Route Start Last Admin Trade Name Freq PRN Reason Stop Dose Admin Acetaminophen 650 mg 05/09/21 17:07 Acetaminophen 325 Mg Tab PO Q4H PRN Pain MILD(1-3)/Fever >100.5/SEE Hydrocodone Bitart/Acetaminophen 2 each 05/09/21 09:28 05/17/21 11:31 Hydrocodone/Acetaminophen 5-325 Mg Tab PO 2 each Q6H PRN Administration Pain, Moderate (4-6) Amlodipine Besylate 5 mg 05/09/21 10:00 05/17/21 10:08 Amlodipine 5 Mg Tab PO 5 mg DAILY MADISYN Administration Dicyclomine HCl 10 mg 05/09/21 09:35 Dicyclomine 10 Mg Cap PO BID PRN stomach cramps Docusate Sodium 100 mg 05/09/21 10:00 05/17/21 10:07 Docusate Sodium 100 Mg Cap PO 100 mg BID MADISYN Administration Escitalopram Oxalate 20 mg 05/14/21 10:00 05/17/21 10:08 Escitalopram 10 Mg Tab PO 20 mg QDAY MADISYN Administration Heparin Sodium (Porcine) 5,000 unit 05/09/21 22:00 05/17/21 10:08 Heparin 5,000 Unit/1 Ml Vial SUB-Q 5,000 unit Q12HR MADISYN Administration Hydralazine HCl 10 mg 05/09/21 10:00 05/17/21 10:13 Hydralazine 10 Mg Tab PO 10 mg Q6H MADISYN Administration Sodium Chloride 1,000 mls @ 100 mls/hr 05/09/21 09:30 05/11/21 21:47 Nacl 0.9% 1000 Ml IV 100 mls/hr DIRECT MADISYN Administration Levetiracetam 500 mg 05/09/21 10:00 05/17/21 10:08 Levetiracetam 500 Mg Tab PO 500 mg BID MADISYN Administration Lorazepam 1 mg 05/09/21 09:28 05/16/21 10:53 Lorazepam 2 Mg/Ml Vial IV 1 mg Q6H PRN Administration Agitation Mirtazapine 15 mg 05/13/21 22:00 05/16/21 21:50 Mirtazapine 15 Mg Tab PO 15 mg QHS MADISYN Administration Morphine Sulfate 2 mg 05/09/21 17:07 05/13/21 21:54 Morphine 2 Mg/1 Ml Inj IV 2 mg Q4H PRN Administration Pain, Moderate (4-6) Ondansetron HCl 4 mg 05/09/21 09:28 Ondansetron 4 Mg/2 Ml Inj IV Q8H PRN Nausea And Vomiting Pantoprazole Sodium 40 mg 05/09/21 10:00 05/17/21 10:08 Pantoprazole 40 Mg Tab PO 40 mg BID MADISYN Administration Quetiapine Fumarate 25 mg 05/10/21 22:00 05/17/21 10:08 Quetiapine 25 Mg Tab PO 25 mg BID MADISYN Administration Senna 8.6 mg 05/09/21 09:39 Sennosides 8.6 Mg Tab PO HS PRN Constipation Sodium Chloride 10 ml 05/09/21 10:00 05/17/21 10:20 Sodium Chloride 0.9% 10 Ml Flush Syringe IV Not Given BID MADISYN Sodium Chloride 10 ml 05/09/21 09:28 Sodium Chloride 0.9% 10 Ml Flush Syringe IV PRN PRN LINE FLUSH Sodium Chloride 10 ml 05/09/21 22:00 05/17/21 10:21 Sodium Chloride 0.9% 10 Ml Flush Syringe IV Not Given BID MADISYN Sodium Chloride 10 ml 05/09/21 17:07 Sodium Chloride 0.9% 10 Ml Flush Syringe IV PRN PRN LINE FLUSH Sucralfate 1 gm 05/09/21 11:30 05/17/21 11:34 Sucralfate 1 Gm/10 Ml Oral Liqd PO 1 gm ACHS MADISYN Administration Nutrition/Malnutrition Assess - Dietary Evaluation Nutrition/Malnutrition Findings: Nutrition Notes Start: 05/10/21 17:14 Freq: Status: Active Protocol: Document 05/17/21 12:11 KIRILL (Rec: 05/17/21 12:20 RIALL [id number]) Nutrition Notes Initial or Follow up Reassessment Current Diagnosis Hypertension,Stroke, Hyperlipidemia Other Pertinent Diagnosis Acute cystitis, Seizure D/O, Suicidal ideations Current Diet Cardiac + Ensure High Protein BID Labs/Tests K 3.5 BUN 24 Cr 1.8 Pertinent Medications Remeron Height 5 ft Weight 81 kg [place] Body Weight (kg) 45.45 BMI 34.9 Weight change and time frame Wt change noted Weight Status Obese Subjective/Other Information Spoke with pt via phone (12:10 ); she says she drinks the ONS . PO intakes documented at 42 % of meals. Percent of energy/protein needs met: 77% energy 57% pro (excludes ONS) 100% energy and pro with ONS Burn Absent Trauma Absent Minimum of two criteria No #1 Nutrition Diagnosis Inadequate protein intake Etiology mental status, advanced age, decreased appetite As Evidenced by Signs and Symptoms PO intake of meals (without ONS) provides <75% of estimated pro needs Is patient on ventilator? No Is Patient Ambulatory and/or Out of Bed No REE-([facility]-confined to bed) 1489.836 Kcal/Kg value to use for calculation 15 Approximate Energy Requirements Using 1215 kcal/Kg Calculation Used for Recommendations Kcal/kg Additional Notes Pro needs 1-1.2g/kg adjBW: 63- 76g/day Fluid needs 1ml/kcal Nutrition Intervention Change Diet Order: Continue current diet order Add Supplement/Snack (indicate name/kcal Ensure High Protein BID /protein ) Provides kCal: 320 Provides Protein (gm) 32 Goal #1 PO intake of meals plus ONS to meet at least 75% energy and pro needs Revisit per MD consult or patient Sign Off request:
[2021-05-17] MEDS: MIRTAZAPINE 15 MG TAB PO SCH (21:45)
[2021-05-18] MEDS: hydrALAZINE 10 MG TAB PO SCH ×3 (04:38→18:28)
[2021-05-18 08:58] LABS: Calcium 8.9 mg/dL (8.4-10.2)
[2021-05-18] MEDS: HEPARIN 5,000 UNIT/1 ML VIAL SUB-Q SCH (09:02)
[2021-05-18] MEDS: levETIRAcetam 500 MG TAB PO SCH (09:02)
[2021-05-18] MEDS: DOCUSATE SODIUM 100 MG CAP PO SCH (09:03)
[2021-05-18] MEDS: ESCITALOPRAM 10 MG TAB PO SCH (09:03)
[2021-05-18] MEDS: FREE WATER PO SCH ×3 (09:06→18:32)
[2021-05-18] MEDS: QUEtiapine 25 MG TAB PO SCH (09:12)
[2021-05-18] MEDS: PANTOPRAZOLE 40 MG TAB PO SCH (09:12)
[2021-05-18] MEDS: SUCRALFATE 1 GM/10 ML ORAL LIQD PO SCH ×3 (09:12→18:32)
[2021-05-18] MEDS: amLODIPine 5 MG TAB PO SCH (09:12)
--- NOTE | 2021-05-18 13:14 | Discharge Summary ---
Providers - Providers Date of Admission: 05/09/21 17:07 Date of discharge: 05/18/21 Attending physician: SHERWIN FOSTER MD 05/08/21 09:23 Consult to Mental Health [CONS] Stat Reason For Exam: suicide attempt Consult to Mental Health [CONS] Stat Reason For Exam: suicide attempt 05/09/21 09:34 Consult to Case Management [CONS] Routine Services Needed at Discharge: Accounts Payable Coordinator Notified:: CM Comment:: 1013 05/12/21 12:00 Physical Therapy Evaluation and Treat [CONS] Routine Comment: Reason For Exam: generalized weakness Primary care physician: BRIDGE OPENER Hospitalization Reason for admission: Suicidal ideation; acute metabolic encephalopathy Condition: Stable Pertinent studies: Reviewed. Procedures: None. Hospital course: Patient is a 75-year-old female with past history of hypertension, GERD, obesity, CVA in recent past February 2021 and now was recently transferred to [facility] detention facility. Patient transferred there on May 05. After being there 1 to 2 days patient was noted to have an extension cord around neck saying that she wanted to kill herself. After a brief episode of redirection patient then tried to put another cord around her neck and therefore was sent out for suicidal ideations. Upon presentation to the ED patient was found to have significant pyuria and UTI and therefore was admitted to medicine services for treatment of UTI and physical exam for possible psych placement. Urinalysis revealed >182, RBC 31, bacteria 1+, WBC clumps 3+ and urine mucus 2+. The patient completed an IV course of Rocephin. Mental health/psychiatry was consulted for management of suicidal ideation versus suicidal attempt. Patient was initiated on escitalopram 20 mg daily, mirtazapine 15 mg daily, and quetiapine 25 mg twice daily. The patient was also placed on 1013 admission. Patient is medically clear for discharge but continues to remain on 1013 status. Psychiatry has been made aware. Disposition: HOME / SELF CARE / HOMELESS Final Discharge Diagnosis (Prints w/discharge instructions): Suicidal ideation/attempt, acute metabolic encephalopathy, acute cystitis with hematuria, history of CVA, hypertension, hyperlipidemia, seizure disorder Time spent for discharge: 45 min Core Measure Documentation - Palliative Care Palliative Care/ Comfort Measures: Not Applicable - Core Measures Any of the following diagnoses?: none Exam - Constitutional Vitals: Temp Pulse Resp BP Pulse Ox 97.5 F L 75 18 113/55 100 05/18/21 11:15 05/18/21 11:15 05/18/21 11:15 05/18/21 11:15 05/18/21 11:15 General appearance: Present: no acute distress, well-nourished, obese - EENT Eyes: Present: PERRL, EOM intact ENT: hearing intact, clear oral mucosa, edentulous - Neck Neck: Present: supple, normal ROM - Respiratory Respiratory effort: normal Respiratory: bilateral: CTA - Cardiovascular Rhythm: regular Heart Sounds: Present: S1 & S2 - Extremities Extremities: no ischemia, pulses intact, pulses symmetrical, No edema, normal temperature, normal color Peripheral Pulses: within normal limits - Abdominal General gastrointestinal: Present: soft, non-tender, non-distended, normal bowel sounds Female genitourinary: Present: deferred - Rectal Rectal Exam: deferred - Integumentary Integumentary: Present: clear, warm, dry - Musculoskeletal Musculoskeletal: strength equal bilaterally - Psychiatric Psychiatric: cooperative, depressed, other (Openly crying and weeping) - Neurologic Neurologic: CNII-XII intact, moves all extremities - Allied Health Allied health notes reviewed: nursing Plan Activity: no restrictions Diet: regular Additional Instructions: Patient is a 75-year-old female with past history of hypertension, GERD, obesity, CVA in recent past February 2021 and now was recently transferred to [facility] detention facility. Patient transferred there on May 05. After being there 1 to 2 days patient was noted to have an extension cord around neck saying that she wanted to kill herself. After a brief episode of redirection patient then tried to put another cord around her neck and therefore was sent out for suicidal ideations. Upon presentation to the ED patient was found to have significant pyuria and UTI and therefore was admitted to medicine services for treatment of UTI and physical exam for possible psych placement. Urinalysis revealed >182, RBC 31, bacteria 1+, WBC clumps 3+ and urine mucus 2+. The patient completed an IV course of Rocephin. Mental health/psychiatry was consulted for management of suicidal ideation versus suicidal attempt. Patient was initiated on escitalopram 20 mg daily, mirtazapine 15 mg daily, and quetiapine 25 mg twice daily. The patient was also placed on 1013 admission. Patient is medically clear for discharge but continues to remain on 1013 status. Psychiatry has been made aware. Care Plan Goals: Start taking Remeron, Lexapro and Seroquel at the up-to-date doses. Follow-up with your primary care doctor as needed. Assessment: Patient is a 75-year-old female with past history of hypertension, GERD, obesity, CVA in recent past February 2021 and now was recently transferred to [facility] detention facility. Patient transferred there on May 05. After being there 1 to 2 days patient was noted to have an extension cord around neck saying that she wanted to kill herself. After a brief episode of redirection patient then tried to put another cord around her neck and therefore was sent out for suicidal ideations. Upon presentation to the ED patient was found to have significant pyuria and UTI and therefore was admitted to medicine services for treatment of UTI and physical exam for possible psych placement. Urinalysis revealed >182, RBC 31, bacteria 1+, WBC clumps 3+ and urine mucus 2+. The patient completed an IV course of Rocephin. Mental health/psychiatry was consulted for management of suicidal ideation versus suicidal attempt. Patient was initiated on escitalopram 20 mg daily, mirtazapine 15 mg daily, and quetiapine 25 mg twice daily. The patient was also placed on 1013 admission. Patient is medically clear for discharge but continues to remain on 1013 status. Psychiatry has been made aware. Follow up with: PRIMARY CARE, [Primary Care Provider] - 7 Days Prescriptions: Mirtazapine [Remeron 15mg TAB] 15 mg PO QHS 30 Days #30 tablet Escitalopram [Lexapro] 20 mg PO QDAY 30 Days #30 tablet QUEtiapine [SEROquel] 25 mg PO BID 30 Days #60 tablet
--- NOTE | 2021-05-18 16:18 | Progress Note ---
Subjective - Reason for Consult Consult date: 05/18/21 Reason for consult: SA - Chief Complaint Chief complaint: The patient was seen today. She reports doing well. She denies any current suicidal/homicidal ideation and denies hallucinations. ROS: Unable to obtain MENTAL STATUS EXAMINATION Unable to obtain Assessment and Plan (1) Major Depressive Disorder Treatment Plan 1013 Continue Remeron 15mg po qhs Continue Lexapro 20mg po daily Continue Seroquel 25mg po BID Agree with prn lorazepam and seroquel qhs Risks, benefits and alternatives of medications discussed with the patient, questions answered and consent obtained from patient. PSYCHOTHERAPY: Supportive psychotherapy provided MEDICAL: Per primary team DELIRIUM PRECAUTIONS: Please re-orient patient frequently, keep lights on during the day, and minimize benzodiazepines and opiates as these medications could worsen patient's confusion. OFFLINE CUTTER: per primary DISPOSITION: Do not recommend acute inpatient psychiatric hospitalization. Maintenance Mechanic Technician will provide patient with psychiatric out patient resourcec and safety plan. Will sign off. Thank you for the consult. Please contact with any questions and/or concerns. Case staffed with Dr. Lowery Mental Status Exam - Vital signs Last Vital Signs Temp 97.5 F L 05/18/21 11:15 Pulse 75 05/18/21 11:15 Resp 18 05/18/21 11:15 BP 113/55 05/18/21 11:15 Pulse Ox 100 05/18/21 11:15
[2021-05-18 22:04] VITALS: BP 112/42
== END 2021-05-18 22:00 | DRG 689 ==
LOC: ED 09:18 → 3A 05-09 17:07
PROVIDERS: ADMIT Internal Medicine; ATTEND Student in an Organized Health Care Education/Training Program
DX: N30.01 Acute cystitis with hematuria (principal); G93.41 Metabolic encephalopathy; R45.851 Suicidal ideations; G40.909 Epilepsy, unspecified, not intractable, without status epilepticus; I10 Essential (primary) hypertension; K21.9 Gastro-esophageal reflux disease without esophagitis; E66.9 Obesity, unspecified; F32.9 Major depressive disorder, single episode, unspecified; Z68.35 Body mass index [BMI] 35.0-35.9, adult; Z91.011 Allergy to milk products; Z86.73 Personal history of transient ischemic attack (TIA), and cerebral infarction without residual deficits; Z91.018 Allergy to other foods
CPT/HCPCS: 36415; 80048; 80307; 80320; 81001; 82962; 85007; 85025; 86850; 86900; 86901; 87086; G0378; Q0162; G0480; J0696; J1644; J2060; J2270; J3486; J7030; U0003

== ENCOUNTER 2021-09-04 07:20 | Inpatient (IN) | payer MEDICAID, MEDICARE ==
[2021-09-04] MEDS ORDERED: SODIUM CHLORIDE 0.9% 1000 ML IV SOLN IV ONE (07:53)
[2021-09-04] MEDS ORDERED: CEFEPIME/NS 2 GM/100 ML 2 GM/100 ML BAG IV ONE (07:53)
[2021-09-04] MEDS ORDERED: VANCOMYCIN PHARMACY TO DOSE IV SCH (08:00)
--- NOTE | 2021-09-04 08:19 | XRay Report ---
CHEST 1 VIEW INDICATION / CLINICAL INFORMATION: sepsis, abnl breath sounds. COMPARISON: 06/28/2021 FINDINGS: SUPPORT DEVICES: None. HEART / MEDIASTINUM: No significant abnormality. LUNGS / PLEURA: Patchy opacity right lung base. Left lung is clear. No pneumothorax. ADDITIONAL FINDINGS: No significant additional findings. IMPRESSION: 1. Patchy opacities in the right lung base, could reflect mild right lower lung zone pneumonia. Signer Name: Jose G Hemphill MD Signed: 09/04/2021 8:14 AM Workstation Name: [email or web address]
[2021-09-04] MEDS ORDERED: VANCOMYCIN 1,250 MG in SODIUM CHLORIDE 0.9% 500 ML 500 ML IV ONE (09:00)
[2021-09-04] MEDS ORDERED: LIDOCAINE (2%) 20 MG/1 ML VIAL 20 ML MDV INFILTRATI ONE (09:17)
[2021-09-04 09:31] LABS: Hematocrit 30.6 % (30.3-42.9); Hemoglobin 10.1 gm/dl (10.1-14.3); Mean Corpuscular HGB Conc 33 % (30-34); Mean Corpuscular Volume 90 fl (79-97); Platelet Count 194 K/mm3 (140-440); Red Blood Count 3.42 M/mm3 (3.65-5.03)
[2021-09-04 09:40] LABS: Red Cell Distribution Width 21.5 % (13.2-15.2)
--- NOTE | 2021-09-04 09:45 | Emergency Department Report ---
ED Shortness of Breath HPI - General Chief Complaint: Dyspnea/Respdistress Stated Complaint: COUHG/BYRON Time Seen by Provider: 09/04/21 07:40 Source: EMS Mode of arrival: Stretcher Limitations: Altered Mental Status, Physical Limitation - History of Present Illness Initial Comments: 76-year-old female presents from [facility] with possible as piration. Past medical history of hypertension, GERD, obesity, aphasia, epilepsy, depression, and dementia. 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 Patient was discharged at that time with Brasher catheter. It is very difficult to obtain history of present illness from patient. She has significant aphasia and has very difficult to understand speech. Patient hypotensive with what appears to be vomitus chest upon her arrival. Sepsis protocol initiated - Related Data Home Medications Medication Instructions Recorded Confirmed Last Taken Acetaminophen [Tylenol] 650 mg PO Q6H PRN 05/09/21 05/09/21 Unknown Amlodipine Besylate [Norvasc] 5 mg PO DAILY 05/09/21 05/09/21 Unknown Atorvastatin [Lipitor] 40 mg PO QHS 05/09/21 05/09/21 Unknown Cyanocobalamin (Vitamin B-12) 500 mcg PO DAILY 05/09/21 05/09/21 Unknown [Vitamin B-12] Dicyclomine [Bentyl] 10 mg PO BID PRN 05/09/21 05/09/21 Unknown HYDROcodone/ACETAMINOPHEN 5 - 325 mg PO Q12H PRN 05/09/21 05/09/21 Unknown [Hydrocodone-Acetamin 2.5-325] Melatonin [Melatonin 3MG TAB] 3 mg PO HS PRN 05/09/21 05/09/21 Unknown Pantoprazole [Protonix TAB] 40 mg PO BID 05/09/21 05/09/21 Unknown Sennosides [Senna] 8.6 mg PO HS PRN 05/09/21 05/09/21 Unknown Sucralfate [Carafate] 1 gm PO ACHS 05/09/21 05/09/21 Unknown Trospium Chloride [Trospium 60 mg PO DAILY 05/09/21 05/09/21 Unknown Chloride ER] hydrALAZINE [Apresoline TAB] 10 mg PO Q6H 05/09/21 05/09/21 Unknown levETIRAcetam [Keppra TAB] 500 mg PO BID 05/09/21 05/09/21 Unknown Previous Rx's Medication Instructions Recorded Last Taken Type Escitalopram [Lexapro] 20 mg PO QDAY 30 Days #30 tablet 05/14/21 Unknown Rx Mirtazapine [Remeron 15mg TAB] 15 mg PO QHS 30 Days #30 tablet 05/14/21 Unknown Rx QUEtiapine [SEROquel] 25 mg PO BID 30 Days #60 tablet 05/14/21 Unknown Rx Allergies Allergy/AdvReac Type Severity Reaction Status Date / Time cheese Allergy Hives Verified 09/04/21 07:30 Milk Containing Products Allergy Hives Verified 09/04/21 07:30 tree nut Allergy Hives Verified 09/04/21 07:30 ED Review of Systems ROS: Stated complaint: COUHG/BYRON Other details as noted in HPI Comment: Unobtainable due to pts medical conditions ED Past Medical Hx - Past Medical History Previous Medical History?: Yes Hx Hypertension: Yes Hx Deep Vein Thrombosis: No Hx GERD: Yes Hx Renal Disease: Yes (ARETHA; urosepsis; bilateral hydronephrosis) Hx Seizures: Yes Hx Dementia: Yes Additional medical history: depression - Surgical History Hx Pacemaker: No Hx Internal Defibrillator: No Additional Surgical History: Abdominal surgery - Social History Smoking Status: Unknown if ever smoked - Medications Home Medications: Home Medications Medication Instructions Recorded Confirmed Last Taken Type Acetaminophen [Tylenol] 650 mg PO Q6H PRN 05/09/21 05/09/21 Unknown History Amlodipine Besylate [Norvasc] 5 mg PO DAILY 05/09/21 05/09/21 Unknown History Atorvastatin [Lipitor] 40 mg PO QHS 05/09/21 05/09/21 Unknown History Cyanocobalamin (Vitamin B-12) 500 mcg PO DAILY 05/09/21 05/09/21 Unknown History [Vitamin B-12] Dicyclomine [Bentyl] 10 mg PO BID PRN 05/09/21 05/09/21 Unknown History HYDROcodone/ACETAMINOPHEN 5 - 325 mg PO Q12H PRN 05/09/21 05/09/21 Unknown History [Hydrocodone-Acetamin 2.5-325] Melatonin [Melatonin 3MG TAB] 3 mg PO HS PRN 05/09/21 05/09/21 Unknown History Pantoprazole [Protonix TAB] 40 mg PO BID 05/09/21 05/09/21 Unknown History Sennosides [Senna] 8.6 mg PO HS PRN 05/09/21 05/09/21 Unknown History Sucralfate [Carafate] 1 gm PO ACHS 05/09/21 05/09/21 Unknown History Trospium Chloride [Trospium 60 mg PO DAILY 05/09/21 05/09/21 Unknown History Chloride ER] hydrALAZINE [Apresoline TAB] 10 mg PO Q6H 05/09/21 05/09/21 Unknown History levETIRAcetam [Keppra TAB] 500 mg PO BID 05/09/21 05/09/21 Unknown History Escitalopram [Lexapro] 20 mg PO QDAY 30 Days #30 tablet 05/14/21 Unknown Rx Mirtazapine [Remeron 15mg TAB] 15 mg PO QHS 30 Days #30 tablet 05/14/21 Unknown Rx QUEtiapine [SEROquel] 25 mg PO BID 30 Days #60 tablet 05/14/21 Unknown Rx ED Physical Exam - General Limitations: Altered Mental Status, Physical Limitation - Other Other exam information: General: Mild distress complains of pain Head: Atraumatic Eyes: normal appearance ENT: Dry mucous membrane Neck: Normal appearance, limited extension Chest: Bilateral rhonchi right greater than left CV: Mild tachycardia Abdomen: Soft, normal bowel sounds, nontender, nondistended, no rebound or guarding Back: Normal inspection Extremity: Right leg edema with 2+ DP pulse. Right leg greater than left Neuro: Alert, significant dysarthria, equal handgrip, equal foot dorsiflexion Skin: Warm to touch ED Course Vital Signs 09/04/21 09/04/21 09/04/21 07:27 07:43 07:45 Temperature 97.9 F Pulse Rate 110 H Respiratory 20 Rate Blood Pressure 82/34 Blood Pressure 130/89 [Left] O2 Sat by Pulse 94 97 95 Oximetry 09/04/21 09/04/21 09/04/21 08:00 08:16 08:30 Temperature Pulse Rate 103 H 98 H Respiratory 12 17 16 Rate Blood Pressure 79/48 83/51 73/43 Blood Pressure [Left] O2 Sat by Pulse 97 100 95 Oximetry 09/04/21 09/04/21 09/04/21 08:46 09:00 09:16 Temperature Pulse Rate 102 H 106 H 109 H Respiratory 36 H 33 H 28 H Rate Blood Pressure 73/51 63/40 73/46 Blood Pressure [Left] O2 Sat by Pulse 97 97 96 Oximetry 09/04/21 09/04/21 09/04/21 09:30 09:46 10:00 Temperature Pulse Rate 106 H 106 H 98 H Respiratory 27 H 33 H 21 Rate Blood Pressure 74/45 83/56 97/49 Blood Pressure [Left] O2 Sat by Pulse 94 96 98 Oximetry 09/04/21 09/04/21 09/04/21 10:16 10:30 10:46 Temperature Pulse Rate 97 H 87 86 Respiratory 21 20 19 Rate Blood Pressure 90/51 97/52 89/49 Blood Pressure [Left] O2 Sat by Pulse 95 95 91 Oximetry 09/04/21 09/04/21 09/04/21 11:00 11:16 11:30 Temperature Pulse Rate 87 89 94 H Respiratory 16 14 19 Rate Blood Pressure 92/44 75/31 75/31 Blood Pressure [Left] O2 Sat by Pulse 95 98 100 Oximetry 09/04/21 09/04/21 09/04/21 11:46 12:00 12:16 Temperature Pulse Rate 85 88 85 Respiratory 15 27 H 19 Rate Blood Pressure 72/41 120/48 110/56 Blood Pressure [Left] O2 Sat by Pulse 98 97 Oximetry 09/04/21 09/04/21 09/04/21 12:30 12:46 13:00 Temperature Pulse Rate 89 85 93 H Respiratory 21 19 15 Rate Blood Pressure 95/57 95/38 96/44 Blood Pressure [Left] O2 Sat by Pulse 98 100 98 Oximetry 09/04/21 09/04/21 09/04/21 13:16 13:30 13:46 Temperature Pulse Rate 95 H 92 H 96 H Respiratory 16 19 16 Rate Blood Pressure 98/47 88/39 88/59 Blood Pressure [Left] O2 Sat by Pulse 99 97 98 Oximetry - Reevaluation(s) Reevaluation #1: 09/04/21 10:55 Right femoral central line was removed due to arterial cannulation. Direct pressure was held for 10 to 15 minutes followed by pressure bandage. Patient has distal DP pulse intact. Case discussed with vascular surgeon. - Consultations Consultation #1: 09/04/21 10:49 case d/w DR Goldstein vascular surgeon on-call regarding arterial cannulation with triple-lumen. Agrees with holding pressure for 10 to 15 minutes. Recommends application of a pressure bandage. No further vascular assessment required at this time if bleeding resolves and no signs of hematoma 09/04/21 11:22 case d/w DR Sher critical care in the ED. She will consult - Central Line Placement Right Femoral Consent Obtained: emergent situation Time Out Performed: Yes MD Prep: mask, gown, gloves Central Line Prep: Chlorhexidine scrub, sterile drapes applied Local Anesthesia Used: Lidocaine 1% Amount of Anesthesia Used (mls): 5 Ultrasound Used for Placement: Yes Central Line Lumen Inserted: triple Reason for Insertion: Emergency Venous Access Bloods Obtained for Lab: Yes Central Line Position: good blood return, sutured in place with nyl Dressing Applied: Tegaderm Patient Tolerated Procedure: other Complications: arterial puncture/cannula Additional Comments: Line was subsequently removed and pressure held Left Femoral Consent Obtained: emergent situation Time Out Performed: Yes Patient Placed on Monitor/Pulse Ox: Yes Prep: mask, gown, gloves Central Line Prep: Chlorhexidine scrub, sterile drapes applied Local Anesthesia Used: Lidocaine 1% Amount of Anesthesia Used (mls): 5 Ultrasound Used for Placement: Yes Central Line Lumen Inserted: triple Reason for Insertion: Emergency Venous Access Bloods Obtained for Lab: Yes Central Line Position: good blood return, sutured in place with nyl Dressing Applied: Tegaderm Patient Tolerated Procedure: no complications Complications: none ED Medical Decision Making - Lab Data Result diagrams: 09/04/21 09:13 09/04/21 09:13 Lab Results 09/04/21 09/04/21 09/04/21 Range/Units 09:13 09:13 09:13 WBC 8.4 (4.5-11.0) K/mm3 RBC 3.42 L (3.65-5.03) M/mm3 Hgb 10.1 (10.1-14.3) gm/dl Hct 30.6 (30.3-42.9) % MCV 90 (79-97) fl MCH 30 (28-32) pg MCHC 33 (30-34) % RDW 21.5 H (13.2-15.2) % Plt Count 194 (140-440) K/mm3 Add Manual Diff Complete Total Counted 100 Seg Neuts % (Manual) 87.0 H (40.0-70.0) % Band Neutrophils % 0 % Lymphocytes % (Manual) 10.0 L (13.4-35.0) % Reactive Lymphs % (Man) 0 % Monocytes % (Manual) 3.0 (0.0-7.3) % Eosinophils % (Manual) 0 (0.0-4.3) % Basophils % (Manual) 0 (0.0-1.8) % Metamyelocytes % 0 % Myelocytes % 0 % Promyelocytes % 0 % Blast Cells % 0 % Nucleated RBC % Not Reportable Seg Neutrophils # Man 7.3 (1.8-7.7) K/mm3 Band Neutrophils # 0.0 K/mm3 Lymphocytes # (Manual) 0.8 L (1.2-5.4) K/mm3 Abs React Lymphs (Man) 0.0 K/mm3 Monocytes # (Manual) 0.3 (0.0-0.8) K/mm3 Eosinophils # (Manual) 0.0 (0.0-0.4) K/mm3 Basophils # (Manual) 0.0 (0.0-0.1) K/mm3 Metamyelocytes # 0.0 K/mm3 Myelocytes # 0.0 K/mm3 Promyelocytes # 0.0 K/mm3 Blast Cells # 0.0 K/mm3 WBC Morphology Not Reportable Hypersegmented Neuts Not Reportable Hyposegmented Neuts Not Reportable Hypogranular Neuts Not Reportable Smudge Cells Not Reportable Toxic Granulation Not Reportable Toxic Vacuolation Not Reportable Dohle Bodies Not Reportable Pelger-Huet Anomaly Not Reportable Ward Rods Not Reportable Platelet Estimate Consistent w auto Clumped Platelets Not Reportable Plt Clumps, EDTA Not Reportable Large Platelets Not Reportable Giant Platelets Not Reportable Platelet Satelliting Not Reportable Plt Morphology Comment Not Reportable RBC Morphology Not Reportable Dimorphic RBCs Not Reportable Polychromasia 1+ Hypochromasia 1+ Poikilocytosis Not Reportable Anisocytosis 1+ Microcytosis Not Reportable Macrocytosis Not Reportable Spherocytes Not Reportable Pappenheimer Bodies Not Reportable Sickle Cells Not Reportable Target Cells 2+ Tear Drop Cells Not Reportable Ovalocytes Not Reportable Helmet Cells Not Reportable [employer] Bodies Not Reportable [place] Rings Not Reportable Fabiola Cells Not Reportable Bite Cells Not Reportable Crenated Cell Not Reportable Elliptocytes Not Reportable Acanthocytes (Spur) Not Reportable Rouleaux Not Reportable Hemoglobin C Crystals Not Reportable Schistocytes Not Reportable Malaria parasites Not Reportable Rodrigo Bodies Not Reportable Hem Pathologist Commnt No APTT 36.0 (24.2-36.6) Sec. Sodium 133 L (137-145) mmol/L Potassium 3.1 L (3.6-5.0) mmol/L Chloride 99.3 (98-107) mmol/L Carbon Dioxide 16 L (22-30) mmol/L Anion Gap 21 mmol/L BUN 63 H (7-17) mg/dL Creatinine 2.9 H (0.6-1.2) mg/dL Estimated GFR 19 ml/min BUN/Creatinine Ratio 22 % Glucose 118 H (65-100) mg/dL Lactic Acid (0.7-2.0) mmol/L Calcium 8.2 L (8.4-10.2) mg/dL Magnesium (1.7-2.3) mg/dL Total Bilirubin 1.40 H (0.1-1.2) mg/dL AST 14 (5-40) units/L ALT 13 (7-56) units/L Alkaline Phosphatase 135 H (35-129) units/L Total Creatine Kinase (30-135) units/L CK-MB (CK-2) (0.0-4.0) ng/mL CK-MB (CK-2) Rel Index (0-4) Troponin T 0.092 H (0.00-0.029) ng/mL Total Protein 6.5 (6.3-8.2) g/dL Albumin 1.7 L (3.9-5) g/dL Albumin/Globulin Ratio 0.4 % 09/04/21 09/04/21 09/04/21 Range/Units 09:13 09:13 10:13 WBC (4.5-11.0) K/mm3 RBC (3.65-5.03) M/mm3 Hgb (10.1-14.3) gm/dl Hct (30.3-42.9) % MCV (79-97) fl MCH (28-32) pg MCHC (30-34) % RDW (13.2-15.2) % Plt Count (140-440) K/mm3 Add Manual Diff Total Counted Seg Neuts % (Manual) (40.0-70.0) % Band Neutrophils % % Lymphocytes % (Manual) (13.4-35.0) % Reactive Lymphs % (Man) % Monocytes % (Manual) (0.0-7.3) % Eosinophils % (Manual) (0.0-4.3) % Basophils % (Manual) (0.0-1.8) % Metamyelocytes % % Myelocytes % % Promyelocytes % % Blast Cells % % Nucleated RBC % Seg Neutrophils # Man (1.8-7.7) K/mm3 Band Neutrophils # K/mm3 Lymphocytes # (Manual) (1.2-5.4) K/mm3 Abs React Lymphs (Man) K/mm3 Monocytes # (Manual) (0.0-0.8) K/mm3 Eosinophils # (Manual) (0.0-0.4) K/mm3 Basophils # (Manual) (0.0-0.1) K/mm3 Metamyelocytes # K/mm3 Myelocytes # K/mm3 Promyelocytes # K/mm3 Blast Cells # K/mm3 WBC Morphology Hypersegmented Neuts Hyposegmented Neuts Hypogranular Neuts Smudge Cells Toxic Granulation Toxic Vacuolation Dohle Bodies Pelger-Huet Anomaly Ward Rods Platelet Estimate Clumped Platelets Plt Clumps, EDTA Large Platelets Giant Platelets Platelet Satelliting Plt Morphology Comment RBC Morphology Dimorphic RBCs Polychromasia Hypochromasia Poikilocytosis Anisocytosis Microcytosis Macrocytosis Spherocytes Pappenheimer Bodies Sickle Cells Target Cells Tear Drop Cells Ovalocytes Helmet Cells [employer] Bodies [place] Rings Fabiola Cells Bite Cells Crenated Cell Elliptocytes Acanthocytes (Spur) Rouleaux Hemoglobin C Crystals Schistocytes Malaria parasites Rodrigo Bodies Hem Pathologist Commnt APTT (24.2-36.6) Sec. Sodium (137-145) mmol/L Potassium (3.6-5.0) mmol/L Chloride (98-107) mmol/L Carbon Dioxide (22-30) mmol/L Anion Gap mmol/L BUN (7-17) mg/dL Creatinine (0.6-1.2) mg/dL Estimated GFR ml/min BUN/Creatinine Ratio % Glucose (65-100) mg/dL Lactic Acid 2.90 H* 5.30 H* (0.7-2.0) mmol/L Calcium (8.4-10.2) mg/dL Magnesium 2.20 (1.7-2.3) mg/dL Total Bilirubin (0.1-1.2) mg/dL AST (5-40) units/L ALT (7-56) units/L Alkaline Phosphatase (35-129) units/L Total Creatine Kinase 25 L (30-135) units/L CK-MB (CK-2) < 1.0 (0.0-4.0) ng/mL CK-MB (CK-2) Rel Index 4.0 (0-4) Troponin T (0.00-0.029) ng/mL Total Protein (6.3-8.2) g/dL Albumin (3.9-5) g/dL Albumin/Globulin Ratio % - EKG Data -: EKG Interpreted by [facility] EKG shows normal: sinus rhythm, ST-T waves (no stemi) Rate: normal - Radiology Data Radiology results: report reviewed CHEST 1 VIEW INDICATION / CLINICAL INFORMATION: sepsis, abnl breath sounds. COMPARISON: 06/28/2021 FINDINGS: SUPPORT DEVICES: None. HEART / MEDIASTINUM: No significant abnormality. LUNGS / PLEURA: Patchy opacity right lung base. Left lung is clear. No pneumothorax. ADDITIONAL FINDINGS: No significant additional findings. IMPRESSION: 1. Patchy opacities in the right lung base, could reflect mild right lower lung zone pneumonia. - Medical Decision Making 76-year-old female presented with hypotension and signs of sepsis Central line placed due to lack of peripheral access and persistent hypotension Right femoral arterial was cannulated with triple-lumen, subsequently removed, pressure held, pressure bandage placed. See case discussed with vascular Left femoral central line was placed without incident or complication Patient treated with cefepime and vancomycin for suspected pneumonia Acute renal failure differential includes dehydration, sepsis, or obstruction. Recent admission with signs of hydronephrosis and Brasher placed Brasher catheter exchange in the ED with UA and urine culture requested Patient has slurred speech with history of CVA. Unclear baseline mental status. Questionable acute encephalopathy. CT head and abdomen pelvis ordered Patient will require ICU admission, critical care consultation, and renal consultation (ordered) Mild hypokalemia supplemented with IV potassium Mild troponin elevation noted which could be secondary to renal insufficiency. History of mild elevation in troponin in the past Patient remained hypotensive despite 30 mill per KG fluid bolus therefore Levophed initiated to maintain MAP over 65 ct head without acute findings CT abdomen pelvis only significant for right lower lobe pneumonia Hospitalist to admit Critical Care Time: Yes Critical care time in (mins) excluding proc time.: 75 Critical care attestation.: If time is entered above; I have spent that time in minutes in the direct care of this critically ill patient, excluding procedure time. Critical Care Time: 75 Minutes of critical care time excluding procedures were used in the care of the patient. I came immediately to the bedside upon patient's arrival. I discussed treatment plan with the nursing team members. I reviewed electronic record. Patient required multiple interventions and reassessments. Spoke with multiple consultants and hospitalist ED Disposition Clinical Impression: Septic shock, Pneumonia, ARF (acute renal failure), Hypokalemia, Lactic acid acidosis Disposition: 09 ADMITTED INPATIENT Is pt being admited?: Yes Condition: Stable Instructions: Bacterial Pneumonia (ED) Time of Disposition: 12:15 (DR Hernandez/hospitalist)
[2021-09-04 10:00] LABS: Albumin 1.7 g/dL (3.9-5); Calcium 8.2 mg/dL (8.4-10.2); Creatine Kinase MB < 1.0 ng/mL (0.0-4.0)
[2021-09-04 10:25] LABS: Anisocytosis 1+; Basophils % (Manual) 0 % (0.0-1.8); Eosinophils % (Manual) 0 % (0.0-4.3); Hypochromasia 1+; Target Cells 2+; Total Cells Counted 100
[2021-09-04 10:26] LABS: Platelet Estimate Consistent w Auto
[2021-09-04] MEDS: NORepinephrine/NS 8 MG-250 ML 8 MG/250 ML INFUS..BTL IV SCH ×3 (10:30→23:07)
[2021-09-04] MEDS ORDERED: POTASSIUM CHLORIDE 20 MEQ 20 MEQ/100 ML BAG IV ONE (11:30)
[2021-09-04] MEDS ORDERED: SODIUM CHLORIDE 0.9% 1000 ML 1,000 ML IV ONE (11:38)
[2021-09-04] MEDS ORDERED: SODIUM CHLORIDE 0.9% 1000 ML 1,000 ML ONE (11:39)
--- NOTE | 2021-09-04 11:55 | Cat Scan Report ---
CT ABDOMEN AND PELVIS WITHOUT CONTRAST INDICATION / CLINICAL INFORMATION: acute renal failure, sepsis WO CONTRAST. TECHNIQUE: Axial CT images were obtained through the abdomen and pelvis without IV contrast. All CT scans at this location are performed using CT dose reduction for ALARA by means of automated exposure control. COMPARISON: 06/28/2021 FINDINGS: LOWER CHEST: Right lower lobar consolidation consistent with pneumonia. LIVER: No significant abnormality. GALLBLADDER: Cholecystectomy. PANCREAS: No significant abnormality. SPLEEN: No significant abnormality. ADRENALS: No significant abnormality. RIGHT KIDNEY / URETER: No significant abnormality. LEFT KIDNEY / URETER: No significant abnormality. STOMACH / SMALL BOWEL: Surgical changes of the stomach without acute abnormality. COLON: No significant abnormality. APPENDIX: Nonvisualized PERITONEUM: No free fluid, free air or organized collection. LYMPH NODES: No significant adenopathy. AORTA / ARTERIES/ VEINS: Mild atherosclerotic calcification without acute abnormality. URINARY BLADDER: Decompressed with Brasher catheter REPRODUCTIVE ORGANS: No significant abnormality. ADDITIONAL FINDINGS: None. SKELETAL SYSTEM: No significant abnormality. IMPRESSION: 1. Right lower lobar pneumonia. 2. Other chronic findings as above. Signer Name: Jose G Hemphill MD Signed: 09/04/2021 11:51 AM Workstation Name: [id number]
--- NOTE | 2021-09-04 12:00 | Cat Scan Report ---
NONENHANCED CT SCAN OF THE HEAD: INDICATION / CLINICAL INFORMATION: 76 years Female; encephalopathy. TECHNIQUE: Routine CT head without contrast. All CT scans at this location are performed using CT dos e reduction for ALARA by means of automated exposure control. COMPARISON: None. FINDINGS: BRAIN / INTRACRANIAL CONTENTS: No acute hemorrhage, mass effect, midline shift, hydrocephalus, or acu te, large territorial infarct. No chronic infarct or encephalomalacia. Moderate cortical involution. No significant white matter abnormality. CRANIOCERVICAL JUNCTION: No significant abnormality. ORBITS: No significant abnormality of visualized orbits. SINUSES / MASTOIDS: No significant abnormality of the visualized paranasal sinuses or mastoid air abdirahman ls. ADDITIONAL FINDINGS: None. IMPRESSION: No acute focal parenchymal lesion in the brain graft moderate cortical involution Signer Name: Jaylon Garland MD Signed: 09/04/2021 11:56 AM Workstation Name: [id number]
--- NOTE | 2021-09-04 12:16 | History and Physical Report ---
History of Present Illness Chief complaint: She is confused and choked on her food History of present illness: 76 [facility] Resident with Vascular Dementia, Cerebral Atherosclerosis, GERD, CVA complicated by Dysphagia and debility presents to ED for evaluation. Patient is lethargic with diminished cognition at the time my evaluation and is unable to provide history. Patient history taken EMS staff, ED staff, as well as intermediate facility staff. As per staff the patient was found to have decreased responsiveness today as well as tracheal aspirate in the oropharyngeal space. EMS was notified and upon arrival the patient was found to be in distress and subsequent transported to [facility] for further care and evaluation of the aforementioned symptoms. The patient was seen and evaluated in the emergency department. All lab and imaging studies reviewed. The patient was found to be hypotensive with a blood pressure of 63/40 mmHg. Patient was found to have sepsis suspected secondary to aspiration pneumonia, toxic metabolic encephalopathy, acute kidney injury, volume depletion, urinary tract infection, and metabolic acidosis. Patient admitted to ICU and initiated on sepsis protocol due to increased risk of worsening symptoms and for medical stabilization. Critical care team consulted. Patient is confused with diminished cognition at the time my evaluation but has a positive gag reflex and is able to protect her airway without difficulty. Prior admission on 06/28/2021 reviewed. All medication listed at time of admission has been reconciled. Advanced care planning conducted in ED. Past History Past Medical History: GERD, stroke, other (See HPI) Past Surgical History: bowel surgery Social history: single. denies: smoking, alcohol abuse, prescription drug abuse Family history: hypertension Medications and Allergies Allergies Allergy/AdvReac Type Severity Reaction Status Date / Time cheese Allergy Hives Verified 09/04/21 07:30 Milk Containing Products Allergy Hives Verified 09/04/21 07:30 tree nut Allergy Hives Verified 09/04/21 07:30 Home Medications Medication Instructions Recorded Confirmed Last Taken Type Acetaminophen [Tylenol] 650 mg PO Q6H PRN 05/09/21 05/09/21 Unknown History Amlodipine Besylate [Norvasc] 5 mg PO DAILY 05/09/21 05/09/21 Unknown History Atorvastatin [Lipitor] 40 mg PO QHS 05/09/21 05/09/21 Unknown History Cyanocobalamin (Vitamin B-12) 500 mcg PO DAILY 05/09/21 05/09/21 Unknown History [Vitamin B-12] Dicyclomine [Bentyl] 10 mg PO BID PRN 05/09/21 05/09/21 Unknown History HYDROcodone/ACETAMINOPHEN 5 - 325 mg PO Q12H PRN 05/09/21 05/09/21 Unknown History [Hydrocodone-Acetamin 2.5-325] Melatonin [Melatonin 3MG TAB] 3 mg PO HS PRN 05/09/21 05/09/21 Unknown History Pantoprazole [Protonix TAB] 40 mg PO BID 05/09/21 05/09/21 Unknown History Sennosides [Senna] 8.6 mg PO HS PRN 05/09/21 05/09/21 Unknown History Sucralfate [Carafate] 1 gm PO ACHS 05/09/21 05/09/21 Unknown History Trospium Chloride [Trospium 60 mg PO DAILY 05/09/21 05/09/21 Unknown History Chloride ER] hydrALAZINE [Apresoline TAB] 10 mg PO Q6H 05/09/21 05/09/21 Unknown History levETIRAcetam [Keppra TAB] 500 mg PO BID 05/09/21 05/09/21 Unknown History Escitalopram [Lexapro] 20 mg PO QDAY 30 Days #30 tablet 05/14/21 Unknown Rx Mirtazapine [Remeron 15mg TAB] 15 mg PO QHS 30 Days #30 tablet 05/14/21 Unknown Rx QUEtiapine [SEROquel] 25 mg PO BID 30 Days #60 tablet 05/14/21 Unknown Rx Active Meds: Active Medications Potassium Chloride (Kcl 20meq/100ml) 20 meq in 100 mls @ 100 mls/hr IV ONCE ONE Stop: 09/04/21 12:29 NORepinephrine/NS 8 MG-250 ML (Norepinephrine/Ns 8 Mg-250 Ml (Double Conc)) 8 mg in 250 mls @ 3.75 mls/hr IV TITRATE [facility]; Protocol Sodium Chloride (Nacl 0.9% 1000 Ml) 1,000 mls @ 999 mls/hr IV BOLUS ONE Stop: 09/04/21 12:38 Review of Systems ROS unobtainable: due to mental status Exam - Constitutional Vitals: Temp Pulse Resp BP Pulse Ox 97.9 F 110 H 20 130/89 94 09/04/21 07:27 09/04/21 07:27 09/04/21 07:27 09/04/21 07:27 09/04/21 07:27 General appearance: Present: severe distress - EENT Eyes: Present: PERRL ENT: clear oral mucosa, hearing decreased - Neck Neck: Present: supple, normal ROM - Respiratory Respiratory effort: labored, accessory muscle use Respiratory: bilateral: diminished, rhonchi - Cardiovascular Rhythm: other (Hypotensive, tachycardic) Heart Sounds: Present: S1 & S2. Absent: rub, click Peripheral Pulses: abnormal (Capillary refill greater than 3.5 seconds) - Abdominal General gastrointestinal: Present: soft, non-tender, non-distended, normal bowel sounds Female genitourinary: Present: normal - Integumentary Integumentary: Present: clear, dry, clammy, decreased turgor - Musculoskeletal Musculoskeletal: generalized weakness - Psychiatric Psychiatric: no appropriate mood/affect, no intact judgment & insight, no memory intact - Neurologic Neurologic: CNII-XII intact, no focal deficits, moves all extremities, no gait normal HEART Score - HEART Score Troponin: Troponin T 0.092 ng/mL (0.00-0.029) H 09/04/21 09:13 Results - Labs CBC & Chem 7: 09/04/21 09:13 09/04/21 09:13 Labs: Abnormal lab results 09/04/21 09/04/21 09/04/21 Range/Units 09:13 09:13 09:13 RBC 3.42 L (3.65-5.03) M/mm3 RDW 21.5 H (13.2-15.2) % Seg Neuts % (Manual) 87.0 H (40.0-70.0) % Lymphocytes % (Manual) 10.0 L (13.4-35.0) % Lymphocytes # (Manual) 0.8 L (1.2-5.4) K/mm3 Sodium 133 L (137-145) mmol/L Potassium 3.1 L (3.6-5.0) mmol/L Carbon Dioxide 16 L (22-30) mmol/L BUN 63 H (7-17) mg/dL Creatinine 2.9 H (0.6-1.2) mg/dL Glucose 118 H (65-100) mg/dL Lactic Acid 2.90 H* (0.7-2.0) mmol/L Calcium 8.2 L (8.4-10.2) mg/dL Total Bilirubin 1.40 H (0.1-1.2) mg/dL Alkaline Phosphatase 135 H (35-129) units/L Total Creatine Kinase (30-135) units/L Troponin T 0.092 H (0.00-0.029) ng/mL Albumin 1.7 L (3.9-5) g/dL 09/04/21 09/04/21 Range/Units 09:13 10:13 RBC (3.65-5.03) M/mm3 RDW (13.2-15.2) % Seg Neuts % (Manual) (40.0-70.0) % Lymphocytes % (Manual) (13.4-35.0) % Lymphocytes # (Manual) (1.2-5.4) K/mm3 Sodium (137-145) mmol/L Potassium (3.6-5.0) mmol/L Carbon Dioxide (22-30) mmol/L BUN (7-17) mg/dL Creatinine (0.6-1.2) mg/dL Glucose (65-100) mg/dL Lactic Acid 5.30 H* (0.7-2.0) mmol/L Calcium (8.4-10.2) mg/dL Total Bilirubin (0.1-1.2) mg/dL Alkaline Phosphatase (35-129) units/L Total Creatine Kinase 25 L (30-135) units/L Troponin T (0.00-0.029) ng/mL Albumin (3.9-5) g/dL Assessment and Plan - Patient Problems (1) Sepsis Current Visit: Yes Status: Acute Qualifiers: Sepsis acute organ dysfunction status: with acute organ dysfunction Severe sepsis acute organ dysfunction type: acute renal failure Plan to address problem: Sepsis protocol: IV antibiotic therapy, IV fluid resuscitation therapy, CBC, CMP, supplemental oxygen, pulse oximetry, maintain mean arterial pressure greater than equal to 65, IV pressor support, monitor fluid balance, blood culture, serial lactic acid level The high probability of a clinically significant, sudden or life threatening deterioration of the [cardiac, pulmonary, renal, neuro, infectious disease] system(s) required my full and direct attention, intervention and personal management. The aggregate critical care time was [95] minutes. This time is in addition to time spent performing reported procedures but includes the following: [x] Data Review and interpretation [x] Patient assessment and monitoring of vital signs [x] Documentation [x] Medication orders and management (2) Aspiration pneumonia Current Visit: Yes Status: Acute Qualifiers: Aspiration pneumonia type: due to regurgitated food Plan to address problem: Chest x-ray, supplemental oxygen, pulse oximetry, nebulizer therapy, IV anti biotic therapy, aspiration precautions, (3) UTI (urinary tract infection) Current Visit: Yes Status: Acute Qualifiers: Encounter type: initial encounter Plan to address problem: Urinalysis, IV antibiotic therapy, (4) Toxic metabolic encephalopathy Current Visit: Yes Status: Acute Plan to address problem: CTA, neuro check, aspiration precautions, fall precautions, treat sepsis. (5) Acute kidney injury (ARETHA) with acute tubular necrosis (ATN) Current Visit: Yes Status: Acute Plan to address problem: IV fluid resuscitation therapy, BMP, repeat BMP in a.m. to monitor serum creatin ine as well as GFR. (6) Volume depletion Current Visit: Yes Status: Acute Plan to address problem: IV fluid resuscitation therapy, monitor fluid balance, repeat BMP in AM. Monitor urine output every shift. (7) Metabolic acidosis Current Visit: Yes Status: Acute Plan to address problem: Serial lactic acid level, IV fluid resuscitation therapy, treat sepsis. (8) NSTEMI (non-ST elevated myocardial infarction) Current Visit: Yes Status: Acute Plan to address problem: Type II NSTEMI: Suspected secondary to troponin leak as well as acute kidney injury, troponin level shows exponential decrease with resuscitation therapy. Telemetry monitoring. (9) DVT prophylaxis Current Visit: Yes Status: Acute Plan to address problem: SCD to bilateral lower extremities while in bed, prophylactic anticoagulation (10) Advance care planning Current Visit: Yes Status: Acute Plan to address problem: Disease education done, care plan discussed, diagnoses discussed, prognosis discussed, patient is full code, +30 minutes. (11) Preventative health care Current Visit: Yes Status: Acute Plan to address problem: Risk factor reduction, [facility] safety precautions, patient to follow-up with primary care physician as outpatient for all age and risk factor appropriate screening tests. +30 minutes.
[2021-09-04] MEDS ORDERED: ALBUTEROL 2.5 MG/3 ML NEBU IH PRN (12:25)
[2021-09-04] MEDS ORDERED: ACETAMINOPHEN 650 MG RECT SUPP PR PRN (12:25)
[2021-09-04] MEDS ORDERED: LORazepam 2 MG/ML VIAL IV PRN (12:25)
[2021-09-04] MEDS ORDERED: oxyCODONE /ACETAMINOPHEN 5-325MG TAB PO PRN (12:25)
[2021-09-04] MEDS ORDERED: ACETAMINOPHEN 325 MG TAB PO PRN (12:25)
[2021-09-04] MEDS ORDERED: HYDROmorphone 0.5 MG/0.5 ML INJ IV PRN ×2 (12:25)
[2021-09-04] MEDS ORDERED: SENNOSIDES 8.6 MG TAB PO PRN (12:30)
[2021-09-04] MEDS ORDERED: NON-FORMULARY EACH (Melatonin [Melatonin 3mg Tab] 3 MG Tablet) PO PRN (12:30)
[2021-09-04] MEDS ORDERED: CEFEPIME/NS 2 GM/100 ML 2 GM/100 ML BAG IV SCH (13:00)
--- NOTE | 2021-09-04 13:08 | Consultation ---
History of Present Illness Consult date: 09/04/21 Requesting physician: ARIS MARTINEZ Reason for consult: other (Sepsis, Hypotension) History of present illness: 76 [facility] Res[facility] with Vascular Dementia, Cerebral Atherosclerosis, GERD, CVA complicated by Dysphagia and debility presents to ED for evaluation. Patient is lethargic with diminished cognition at the time my evaluation and is unable to provide history. Patient history taken EMS staff, ED staff, as well as [facility]. As per staff the patient was found to have decreased responsiveness today as well as tracheal aspirate in the oropharyngeal space. EMS was notified and upon arrival the patient was found to be in distress and subsequent transported to [facility] for further care and evaluation of the aforementioned symptoms. The patient was seen and evaluated in the emergency department. All lab and imaging studies reviewed. The patient was found to be hypotensive with a blood pressure of 63/40 mmHg. Patient was found to have sepsis suspected secondary to aspiration pneumonia, toxic metabolic encephalopathy, acute kidney injury, volume depletion, urinary tract infection, and metabolic acidosis. Patient admitted to ICU and initiated on sepsis protocol due to increased risk of worsening symptoms and for medical stabilization. Patient seen and examined Medications and Allergies Allergies Allergy/AdvReac Type Severity Reaction Status Date / Time cheese Allergy Hives Verified 09/04/21 07:30 Milk Containing Products Allergy Hives Verified 09/04/21 07:30 tree nut Allergy Hives Verified 09/04/21 07:30 Home Medications Medication Instructions Recorded Confirmed Last Taken Type Acetaminophen [Tylenol] 650 mg PO Q6H PRN 05/09/21 05/09/21 Unknown History Amlodipine Besylate [Norvasc] 5 mg PO DAILY 05/09/21 05/09/21 Unknown History Atorvastatin [Lipitor] 40 mg PO QHS 05/09/21 05/09/21 Unknown History Cyanocobalamin (Vitamin B-12) 500 mcg PO DAILY 05/09/21 05/09/21 Unknown History [Vitamin B-12] Dicyclomine [Bentyl] 10 mg PO BID PRN 05/09/21 05/09/21 Unknown History HYDROcodone/ACETAMINOPHEN 5 - 325 mg PO Q12H PRN 05/09/21 05/09/21 Unknown History [Hydrocodone-Acetamin 2.5-325] Melatonin [Melatonin 3MG TAB] 3 mg PO HS PRN 05/09/21 05/09/21 Unknown History Pantoprazole [Protonix TAB] 40 mg PO BID 05/09/21 05/09/21 Unknown History Sennosides [Senna] 8.6 mg PO HS PRN 05/09/21 05/09/21 Unknown History Sucralfate [Carafate] 1 gm PO ACHS 05/09/21 05/09/21 Unknown History Trospium Chloride [Trospium 60 mg PO DAILY 05/09/21 05/09/21 Unknown History Chloride ER] hydrALAZINE [Apresoline TAB] 10 mg PO Q6H 05/09/21 05/09/21 Unknown History levETIRAcetam [Keppra TAB] 500 mg PO BID 05/09/21 05/09/21 Unknown History Escitalopram [Lexapro] 20 mg PO QDAY 30 Days #30 tablet 05/14/21 Unknown Rx Mirtazapine [Remeron 15mg TAB] 15 mg PO QHS 30 Days #30 tablet 05/14/21 Unknown Rx QUEtiapine [SEROquel] 25 mg PO BID 30 Days #60 tablet 05/14/21 Unknown Rx Active Meds: Active Medications Acetaminophen (Acetaminophen 325 Mg Tab) 650 mg PO Q6H PRN PRN Reason: Pain, Mild (1-3) Acetaminophen (Acetaminophen 650 Mg Rect Supp) 650 mg VA Q6H PRN PRN Reason: Pain MILD(1-3)/Fever >100.5/SEE Albuterol (Albuterol 2.5 Mg/3 Ml Nebu) 2.5 mg IH Q3HRT PRN PRN Reason: Shortness Of Breath Atorvastatin Calcium (Atorvastatin 40 Mg Tab) 40 mg PO QHS [facility] Escitalopram Oxalate (Escitalopram 10 Mg Tab) 20 mg PO QDAY [facility] Hydromorphone HCl (Hydromorphone 0.5 Mg/0.5 Ml Inj) 0.25 mg IV Q4H PRN PRN Reason: Pain, Moderate (4-6) Hydromorphone HCl (Hydromorphone 0.5 Mg/0.5 Ml Inj) 0.5 mg IV Q23H PRN PRN Reason: Pain , Severe (7-10) NORepinephrine/NS 8 MG-250 ML (Norepinephrine/Ns 8 Mg-250 Ml (Double Conc)) 8 mg in 250 mls @ 3.75 mls/hr IV TITRATE [facility]; Protocol Cefepime HCl (Cefepime/Ns 2 Gm/100 Ml) 2 gm in 100 mls @ 200 mls/hr IV Q8H [facility]; Protocol Levetiracetam (Levetiracetam 500 Mg Tab) 500 mg PO BID [facility] Lorazepam (Lorazepam 2 Mg/Ml Vial) 1 mg IV Q4H PRN PRN Reason: Agitation Mirtazapine (Mirtazapine 15 Mg Tab) 15 mg PO QHS [facility] Miscellaneous Medication (Melatonin [Melatonin 3mg Tab]) 3 mg PO HS PRN PRN Reason: Insomnia Oxycodone/Acetaminophen (Oxycodone /Acetaminophen 5-325mg Tab) 1 tab PO Q6H PRN PRN Reason: Pain, Moderate (4-6) Pantoprazole Sodium (Pantoprazole 40 Mg Tab) 40 mg PO BID [facility] Quetiapine Fumarate (Quetiapine 25 Mg Tab) 25 mg PO BID [facility] Senna (Sennosides 8.6 Mg Tab) 8.6 mg PO HS PRN PRN Reason: Constipation Sodium Chloride (Sodium Chloride 0.9% 10 Ml Flush Syringe) 10 ml IV BID [facility] Sodium Chloride (Sodium Chloride 0.9% 10 Ml Flush Syringe) 10 ml IV PRN PRN PRN Reason: LINE FLUSH Physical Examination Vital signs: Vital Signs Temp Pulse Resp BP Pulse Ox 97.9 F 110 H 20 130/89 94 09/04/21 07:27 09/04/21 07:27 09/04/21 07:27 09/04/21 07:27 09/04/21 07:27 General appearance: Present: no distress - EENT Eyes: Present: PERRL ENT: clear oral mucosa, hearing decreased - Neck Neck: Present: supple, normal ROM - Respiratory Respiratory effort: normal Respiratory: bilateral: diminished, rhonchi - Cardiovascular Rhythm: other (Hypotensive, tachycardic) Heart Sounds: Present: S1 & S2. Absent: rub, click Peripheral Pulses: abnormal (Capillary refill greater than 3.5 seconds) - Abdominal General gastrointestinal: Present: soft, non-tender, non-distended, normal bowel sounds Female genitourinary: Present: normal Femoral CVL - Integumentary Integumentary: Present: clear, dry, clammy, decreased turgor - Musculoskeletal Musculoskeletal: generalized weakness Results - Laboratory Findings CBC and BMP: 09/05/21 13:50 09/05/21 04:10 Abnormal lab findings: Abnormal Labs 09/04/21 09/04/21 09/04/21 09:13 09:13 09:13 RBC 3.42 L RDW 21.5 H Seg Neuts % (Manual) 87.0 H Lymphocytes % (Manual) 10.0 L Lymphocytes # (Manual) 0.8 L Sodium 133 L Potassium 3.1 L Carbon Dioxide 16 L BUN 63 H Creatinine 2.9 H Glucose 118 H Lactic Acid 2.90 H* Calcium 8.2 L Total Bilirubin 1.40 H Alkaline Phosphatase 135 H Total Creatine Kinase Troponin T 0.092 H Albumin 1.7 L 09/04/21 09/04/21 09:13 10:13 RBC RDW Seg Neuts % (Manual) Lymphocytes % (Manual) Lymphocytes # (Manual) Sodium Potassium Carbon Dioxide BUN Creatinine Glucose Lactic Acid 5.30 H* Calcium Total Bilirubin Alkaline Phosphatase Total Creatine Kinase 25 L Troponin T Albumin - Diagnostic Findings Chest x-ray: image reviewed Assessment and Plan (1) Sepsis Current Visit: Yes Status: Acute Qualifiers: Sepsis acute organ dysfunction status: with acute organ dysfunction Severe sepsis acute organ dysfunction type: acute renal failure Plan to address problem: Sepsis protocol: IV antibiotic therapy, IV fluid resuscitation therapy, CBC, CMP, supplemental oxygen, pulse oximetry, maintain mean arterial pressure greater than equal to 65, IV pressor support, monitor fluid balance, blood culture, serial lactic acid level The high probability of a clinically significant, sudden or life threatening d eterioration of the [cardiac, pulmonary, renal, neuro, infectious disease] system(s) required my full and direct attention, intervention and personal management. The aggregate critical care time was [45] minutes. This time is in addition to time spent performing reported procedures but includes the following: [x] Data Review and interpretation [x] Patient assessment and monitoring of vital signs [x] Documentation [x] Medication orders and management (2) Aspiration pneumonia Current Visit: Yes Status: Acute Qualifiers: Aspiration pneumonia type: due to regurgitated food Plan to address problem: Chest x-ray, supplemental oxygen, pulse oximetry, nebulizer therapy, IV antibiotic therapy, aspiration precautions, (3) UTI (urinary tract infection) Current Visit: Yes Status: Acute Qualifiers: Encounter type: initial encounter Plan to address problem: Urinalysis, IV antibiotic therapy, (4) Toxic metabolic encephalopathy Current Visit: Yes Status: Acute Plan to address problem: CTA, neuro check, aspiration precautions, fall precautions, treat sepsis. (5) Acute kidney injury (ARETHA) with acute tubular necrosis (ATN) Current Visit: Yes Status: Acute Plan to address problem: IV fluid resuscitation therapy, BMP, repeat BMP in a.m. to monitor serum creatinine as well as GFR. (6) Volume depletion Current Visit: Yes Status: Acute Plan to address problem: IV fluid resuscitation therapy, monitor fluid balance, repeat BMP in AM. Monitor urine output every shift. (7) Metabolic acidosis Current Visit: Yes Status: Acute Plan to address problem: Serial lactic acid level, IV fluid resuscitation therapy, treat sepsis. (8) NSTEMI (non-ST elevated myocardial infarction) Current Visit: Yes Status: Acute Plan to address problem: Type II NSTEMI: Suspected secondary to troponin leak as well as acute kidney injury, troponin level shows exponential decrease with resuscitation therapy. Telemetry monitoring.
[2021-09-04] MEDS ORDERED: MELATONIN 5 MG TAB PO PRN (13:38)
[2021-09-04] MEDS ORDERED: CEFEPIME/NS 1 GM/100 ML 1 GM/100 ML BAG IV SCH ×2 (14:00→22:00)
[2021-09-04 14:20] LABS: Bacteria,Urine 4+ /HPF (Negative); Bilirubin,Urine NEG (Negative); Blood,Urine LG (Negative); Color,Urine Amber (Yellow); Hyaline Casts,Urine 8 /LPF; Mucus,Urine FEW /HPF; Urobilinogen,Urine < 2.0 mg/dL (<2.0)
[2021-09-04 14:23] LABS: WBC,Urine > 182.0 /HPF (0.0-6.0)
[2021-09-04 15:50] LABS: Chol/HDL Ratio 2.12 %
[2021-09-04] MEDS: SODIUM CHLORIDE 0.45% 1000 ML 1,000 ML IV SCH (18:05)
[2021-09-04] MEDS ORDERED: MIRTAZAPINE 15 MG TAB PO SCH (22:00)
[2021-09-04] MEDS ORDERED: QUEtiapine 25 MG TAB PO SCH (22:00)
[2021-09-04] MEDS ORDERED: PANTOPRAZOLE 40 MG TAB PO SCH (22:00)
[2021-09-04 22:37] LABS: ABG Base Excess -16.6 mmol/L (-2.0-3.0); ABG HCO3 6.9 mmol/L (20.0-26.0); ABG Methemoglobin 0.3 % (0.0-1.5); ABG Oxygen Saturation 97.9 % (95.0-99.0); ABG PCO2 13.4 mm Hg; ABG PH 7.332 pH Units (7.350-7.450); ABG PO2 106.6 mm Hg (80.0-90.0)
[2021-09-04] MEDS: levETIRAcetam 500 MG TAB PO SCH (22:48)
[2021-09-04] MEDS ORDERED: SODIUM BICARB 8.4% 50 MEQ/50 ML SYRINGE IV ONE ×2 (23:16→23:27)
[2021-09-04] MEDS: VASOPRESSIN 20 UNIT in SODIUM CHLORIDE 0.9% 100 ML IV SCH (23:21)
[2021-09-05] MEDS: NORepinephrine/NS 8 MG-250 ML 8 MG/250 ML INFUS..BTL IV SCH ×5 (02:43→13:57)
[2021-09-05] MEDS: SODIUM CHLORIDE 0.45% 1000 ML 1,000 ML IV SCH (04:11)
[2021-09-05 04:54] LABS: Hematocrit 28.7 % (30.3-42.9); Hemoglobin 9.1 gm/dl (10.1-14.3); Mean Corpuscular HGB Conc 32 % (30-34); Mean Corpuscular Volume 91 fl (79-97); Platelet Count 180 K/mm3 (140-440); Red Blood Count 3.16 M/mm3 (3.65-5.03)
[2021-09-05 05:03] LABS: ABG HCO3 7.7 mmol/L (20.0-26.0); ABG Methemoglobin 0.4 % (0.0-1.5); ABG Oxygen Saturation 98.5 % (95.0-99.0); ABG PH 7.391 pH Units (7.350-7.450); ABG PO2 122.5 mm Hg (80.0-90.0)
[2021-09-05 05:12] LABS: Calcium 7.3 mg/dL (8.4-10.2)
[2021-09-05 05:49] LABS: C-Reactive Protein 9.9 mg/dL (0.00-1.30)
[2021-09-05] MEDS ORDERED: SODIUM CHLORIDE 0.45% IV SCH (06:00)
[2021-09-05] MEDS ORDERED: SODIUM BICARBONATE IV SCH (06:00)
[2021-09-05 06:26] LABS: Anisocytosis 1+; Basophils % (Manual) 0 % (0.0-1.8); Eosinophils % (Manual) 0 % (0.0-4.3); Total Cells Counted 100
[2021-09-05 06:27] LABS: Platelet Estimate Consistent w Auto; Target Cells 1+
[2021-09-05] MEDS ORDERED: PHENYLEPHRINE 100 MG in SODIUM CHLORIDE 0.9% 90 ML IV SCH (06:30)
[2021-09-05] MEDS: VASOPRESSIN 20 UNIT in SODIUM CHLORIDE 0.9% 100 ML IV SCH (07:52)
--- NOTE | 2021-09-05 07:56 | Consultation ---
History of Present Illness - History of Present Illness Thank you for the consultation ! Patient was evaluated today, My assessment and plan are as follows #Renal failure moderately severe in a patient who is 76-year-old with multiple complex comorbidities current creatinine is is close to 3, her BMI is only 23.5, also noted to be in sepsis possible urinary source as well as aspiration pneumonia, currently admitted in ICU, renal prognosis very poor, continue with supportive care for now, Creatinine baseline as of June 2021 was around 0.8 and patient had developed acute kidney injury during that admission, her creatinine is currently trending down to 2.6, still severe lactic acidosis 6.6 worsening with a bicarbonate of 22 , Continue with hemodynamic support oxygenation close follow-up, Noted to be in sepsis, white cell count is currently at 20.6, Anemia, hemoglobin currently 9.1 some decline from 10.1, platelet count remained stable at 180,000, blood cultures currently pending, need to send a urine culture, #CT scan obtained during this admission shows right lower pneumonia, no evidence of any hydronephrosis or abnormalities in the kidneys other than vascular calcification noted on the CT scan which also poses risk for renovascular disease If you have any question in regards to this patient renal care please feel free to contact me at [phone] Author: Saad Del Valle M.D. [facility], [address] [place] [address] Tel; [phone] [employer] History of present illness Patient is a 76-year-old female who has been admitted here with worsening mental status, noted to be markedly hypotensive blood pressure 63/40, suspected sepsis possibly due to aspiration pneumonia with underlying multiple comorbidities including but not limited to vascular dementia gastroesophageal flux disorder complicated dysphagia, not on any form of nephrotoxic medications in the outpatient setting upon arrival patient was noted to be in renal failure with a creatinine of 2.9 BUN 63 bicarbonate 16 potassium was 3.1 hemoglobin was 10.1, he is currently being treated for sepsis likely due to aspiration pneumonia as well as urinary tract infection with underlying altered mental status, Old records were also reviewed from June 2021 Past medical history: Dementia, fci bound patient, prior history of acute kidney injury, Other health issues reviewed Current allergies: Reviewed from the current chart Social history: Reviewed from the current chart Family history: Reviewed from the current chart Review of system: Unable to obtain because of stated condition Physical examination Vitals: Reviewed General: No acute distress HEENT: Oral mucosa moist no pallor or icterus Neck: Supple without any JVD thyromegaly or nodular mass Chest: Clear to auscultation Heart: Regular rate and rhythm S1-S2 heard no S3-S4 Abdomen: Soft nontender, bowel sounds present no renal bruit no suprapubic masses no CVA tenderness noted Extremity: Minimal edema dry skin no peripheral cyanosis Endocrine: Thyroid not enlarged Psychiatric: No agitation and aggression noted Musculoskeletal: No joint effusion noted Labs and x-rays: Reviewed from this admission Past History Past Medical History: GERD, stroke, other (See HPI) Past Surgical History: bowel surgery Social history: single. denies: smoking, alcohol abuse, prescription drug abuse Family history: hypertension Medications and Allergies Allergies Allergy/AdvReac Type Severity Reaction Status Date / Time cheese Allergy Hives Verified 09/04/21 07:30 Milk Containing Products Allergy Hives Verified 09/04/21 07:30 tree nut Allergy Hives Verified 09/04/21 07:30 Home Medications Medication Instructions Recorded Confirmed Last Taken Type Acetaminophen [Tylenol] 650 mg PO Q6H PRN 05/09/21 05/09/21 Unknown History Amlodipine Besylate [Norvasc] 5 mg PO DAILY 05/09/21 05/09/21 Unknown History Atorvastatin [Lipitor] 40 mg PO QHS 05/09/21 05/09/21 Unknown History Cyanocobalamin (Vitamin B-12) 500 mcg PO DAILY 05/09/21 05/09/21 Unknown History [Vitamin B-12] Dicyclomine [Bentyl] 10 mg PO BID PRN 05/09/21 05/09/21 Unknown History HYDROcodone/ACETAMINOPHEN 5 - 325 mg PO Q12H PRN 05/09/21 05/09/21 Unknown History [Hydrocodone-Acetamin 2.5-325] Melatonin [Melatonin 3MG TAB] 3 mg PO HS PRN 05/09/21 05/09/21 Unknown History Pantoprazole [Protonix TAB] 40 mg PO BID 05/09/21 05/09/21 Unknown History Sennosides [Senna] 8.6 mg PO HS PRN 05/09/21 05/09/21 Unknown History Sucralfate [Carafate] 1 gm PO ACHS 05/09/21 05/09/21 Unknown History Trospium Chloride [Trospium 60 mg PO DAILY 05/09/21 05/09/21 Unknown History Chloride ER] hydrALAZINE [Apresoline TAB] 10 mg PO Q6H 05/09/21 05/09/21 Unknown History levETIRAcetam [Keppra TAB] 500 mg PO BID 05/09/21 05/09/21 Unknown History Escitalopram [Lexapro] 20 mg PO QDAY 30 Days #30 tablet 05/14/21 Unknown Rx Mirtazapine [Remeron 15mg TAB] 15 mg PO QHS 30 Days #30 tablet 05/14/21 Unknown Rx QUEtiapine [SEROquel] 25 mg PO BID 30 Days #60 tablet 05/14/21 Unknown Rx Active Meds: Active Medications Acetaminophen (Acetaminophen 325 Mg Tab) 650 mg PO Q6H PRN PRN Reason: Pain, Mild (1-3) Acetaminophen (Acetaminophen 650 Mg Rect Supp) 650 mg CA Q6H PRN PRN Reason: Pain MILD(1-3)/Fever >100.5/SEE Albuterol (Albuterol 2.5 Mg/3 Ml Nebu) 2.5 mg IH Q3HRT PRN PRN Reason: Shortness Of Breath Atorvastatin Calcium (Atorvastatin 40 Mg Tab) 40 mg PO QHS [facility] Last Admin: 09/04/21 22:48 Dose: Not Given Escitalopram Oxalate (Escitalopram 10 Mg Tab) 20 mg PO QDAY MADISYN Heparin Sodium (Porcine) (Heparin 5,000 Unit/1 Ml Vial) 5,000 unit SUB-Q Q8HR MADISYN NORepinephrine/NS 8 MG-250 ML (Norepinephrine/Ns 8 Mg-250 Ml (Double Conc)) 8 mg in 250 mls @ 3.75 mls/hr IV TITRATE MADISYN; Protocol Last Admin: 09/05/21 07:00 Dose: 30 mcg/min, 56.25 mls/hr Cefepime HCl (Cefepime/Ns 1 Gm/100 Ml) 1 gm in 100 mls @ 200 mls/hr IV Q12H MADISYN; Protocol Last Admin: 09/04/21 23:07 Dose: 200 mls/hr Vasopressin 20 unit/ Sodium (Chloride) 101 mls @ 9.09 mls/hr IV TITR MADISYN; Protocol Last Admin: 09/05/21 07:52 Dose: 0.03 units/min, 9.09 mls/hr Sodium Bicarbonate 100 meq/ (Sodium Chloride) 1,100 mls @ 100 mls/hr IV DIRECT MADISYN Last Admin: 09/05/21 05:54 Dose: 100 mls/hr Phenylephrine HCl 100 mg/ (Sodium Chloride) 100 mls @ 3 mls/hr IV TITR MADISYN; Protocol Last Admin: 09/05/21 07:46 Dose: 50 mcg/min, 3 mls/hr Levetiracetam (Levetiracetam 500 Mg Tab) 500 mg PO BID MADISYN Last Admin: 09/04/21 22:48 Dose: Not Given Melatonin (Melatonin 5 Mg Tab) 5 mg PO HS PRN PRN Reason: Insomnia Mirtazapine (Mirtazapine 15 Mg Tab) 15 mg PO QHS [facility] Last Admin: 09/04/21 23:18 Dose: Not Given Pantoprazole Sodium (Pantoprazole 40 Mg Inj) 40 mg IV QDAY MADISYN Senna (Sennosides 8.6 Mg Tab) 8.6 mg PO HS PRN PRN Reason: Constipation Sodium Chloride (Sodium Chloride 0.9% 10 Ml Flush Syringe) 10 ml IV BID MADISYN Last Admin: 09/04/21 23:18 Dose: 10 ml Sodium Chloride (Sodium Chloride 0.9% 10 Ml Flush Syringe) 10 ml IV PRN PRN PRN Reason: LINE FLUSH Exam - Vital Signs Vital signs: Vital Signs Temp Pulse Resp BP Pulse Ox 97.9 F 110 H 20 130/89 94 09/04/21 07:27 09/04/21 07:27 09/04/21 07:27 09/04/21 07:27 09/04/21 07:27 Results - Lab Results 09/05/21 04:10 09/05/21 04:10 Most recent lab results ABG pH 7.391 pH Units (7.350-7.450) 09/05/21 04:33 ABG pCO2 13.0 mm Hg 09/05/21 04:33 ABG pO2 122.5 mm Hg (80.0-90.0) H 09/05/21 04:33 ABG HCO3 7.7 mmol/L (20.0-26.0) L 09/05/21 04:33 ABG O2 Saturation 98.5 % (95.0-99.0) 09/05/21 04:33 Calcium 7.3 mg/dL (8.4-10.2) L 09/05/21 04:10 Phosphorus 5.30 mg/dL (2.5-4.5) H 09/05/21 04:10 Magnesium 1.90 mg/dL (1.7-2.3) 09/05/21 04:10
[2021-09-05] MEDS ORDERED: VANCOMYCIN PHARMACY TO DOSE IV SCH (08:00)
[2021-09-05] MEDS: HEPARIN 5,000 UNIT/1 ML VIAL SUB-Q SCH ×2 (09:00→14:00)
[2021-09-05] MEDS ORDERED: NALOXONE 0.4 MG/1 ML INJ IV ONE (09:00)
[2021-09-05] MEDS ORDERED: NALOXONE 0.4 MG/1 ML INJ ONE (09:01)
--- NOTE | 2021-09-05 09:25 | Event Note ---
Date: 09/05/21 Evaluated 76 year old female at bedside, currently on 3 pressors, awake but very lethargic and unable to elicit response. Patient also on Bicarb drip, with tachypnea. Labs reviewed, Discussed with flight operations coordinator and considering overall clinically condition, increased wob possible in attempt to compensate, recommended intubation. Family is ok with intubation and continued Full code. Risk associated discussed in detail. Anesthesiologist help requested for Intubation. Will also call ED for assistance in this complex patient.
[2021-09-05] MEDS ORDERED: SUCCINYLCHOLINE CHLORIDE 200 MG/10 ML INJ MDV ONE (09:27)
[2021-09-05] MEDS ORDERED: ETOMIDATE 20 MG/10 ML INJ IV ONE ×3 (09:27→09:42)
[2021-09-05] MEDS ORDERED: ROCURONIUM 50 MG/5 ML INJ IV ONE (09:27)
--- NOTE | 2021-09-05 09:28 | XRay Report ---
CHEST 1 VIEW 09/05/2021 8:19 AM INDICATION / CLINICAL INFORMATION: Resp distress. COMPARISON: 09/04/21 FINDINGS: SUPPORT DEVICES: None. HEART / MEDIASTINUM: No significant abnormality. LUNGS / PLEURA: Patchy density in the right lung base is unchanged. No pneumothorax. ADDITIONAL FINDINGS: No significant additional findings. IMPRESSION: 1. No change in right lower lobe pneumonia. Signer Name: Sheila Fernandes MD Signed: 09/05/2021 9:23 AM Workstation Name: [id number]
[2021-09-05 09:30] LABS: ABG Base Excess -25.3 mmol/L (-2.0-3.0); ABG HCO3 3.6 mmol/L (20.0-26.0); ABG Methemoglobin 0.5 % (0.0-1.5); ABG Oxygen Saturation 97.5 % (95.0-99.0); ABG PCO2 14.5 mm Hg; ABG PO2 130.1 mm Hg (80.0-90.0)
[2021-09-05 09:34] LABS: ABG PH 7.018 pH Units (7.350-7.450)
[2021-09-05] MEDS ORDERED: SODIUM BICARB 8.4% 50 MEQ/50 ML SYRINGE IV ONE ×4 (09:39→15:00)
[2021-09-05] MEDS ORDERED: SODIUM CHLORIDE 0.9% 1000 ML 1,000 ML ONE (09:51)
--- NOTE | 2021-09-05 09:59 | Progress Note ---
Subjective Date of service: 09/05/21 Principal diagnosis: Intubation Interval history: Called to intubate this 76-year-old female presents from [facility] with possible aspiration. Past medical history of hypertension, GERD, obesity, aphasia, epilepsy, depression, and dementia. Currently on 3 pressers, lethargic and unable to elicit response. Patient also on Bicarb drip, with tachypnea. Labs reviewed. Direct Laryngoscopy with Coldiron Scope 3S, Received [id number], Grade 1 view, ETT 7.5 at 22cm. Positive BBS, ETC02. SPO2 100%. Chest xray ordered. Objective - Constitutional Vitals: Vital Signs - 12hr 09/04/21 09/04/21 09/04/21 22:00 22:02 22:30 Temperature Pulse Rate 101 H 104 H 97 H Pulse Rate [ From Monitor] Respiratory 22 25 H 19 Rate Blood Pressure 82/64 82/64 108/72 O2 Sat by Pulse 90 72 L Oximetry 09/04/21 09/04/21 09/05/21 23:00 23:30 00:00 Temperature Pulse Rate 93 H 97 H 93 H Pulse Rate [ 93 H From Monitor] Respiratory 19 22 Rate Blood Pressure 106/23 78/55 O2 Sat by Pulse 99 99 Oximetry 09/05/21 09/05/21 09/05/21 00:01 00:31 01:01 Temperature Pulse Rate 94 H 99 H 90 Pulse Rate [ From Monitor] Respiratory 24 25 H 21 Rate Blood Pressure 73/56 103/65 97/51 O2 Sat by Pulse 100 81 L 89 Oximetry 09/05/21 09/05/21 09/05/21 01:31 02:01 02:30 Temperature Pulse Rate 95 H 99 H 89 Pulse Rate [ From Monitor] Respiratory 18 16 21 Rate Blood Pressure 84/51 83/43 78/47 O2 Sat by Pulse 83 L 99 98 Oximetry 09/05/21 09/05/21 09/05/21 03:01 03:31 03:45 Temperature Pulse Rate 106 H 107 H 97 H Pulse Rate [ From Monitor] Respiratory 34 H 25 H 19 Rate Blood Pressure 76/47 157/110 157/110 O2 Sat by Pulse 96 Oximetry 09/05/21 09/05/21 09/05/21 04:00 04:01 04:15 Temperature 96.4 F L Pulse Rate 109 H 109 H Pulse Rate [ 100 H From Monitor] Respiratory 25 H 29 H Rate Blood Pressure 157/110 157/110 O2 Sat by Pulse 99 100 99 Oximetry 09/05/21 09/05/21 09/05/21 04:30 04:45 05:01 Temperature Pulse Rate 108 H 106 H 108 H Pulse Rate [ From Monitor] Respiratory 39 H 26 H 24 Rate Blood Pressure 104/70 104/70 119/94 O2 Sat by Pulse 94 Oximetry 09/05/21 09/05/21 09/05/21 05:15 05:31 05:45 Temperature Pulse Rate 108 H 109 H 113 H Pulse Rate [ From Monitor] Respiratory 26 H 29 H 22 Rate Blood Pressure 119/94 83/56 70/47 O2 Sat by Pulse 97 Oximetry 09/05/21 09/05/21 09/05/21 06:00 06:15 06:45 Temperature Pulse Rate 111 H 111 H 114 H Pulse Rate [ From Monitor] Respiratory 31 H 26 H 24 Rate Blood Pressure 83/58 83/58 61/37 O2 Sat by Pulse 72 L Oximetry 09/05/21 09/05/21 09/05/21 07:01 07:15 08:01 Temperature Pulse Rate 120 H 118 H 110 H Pulse Rate [ From Monitor] Respiratory 30 H 31 H 24 Rate Blood Pressure 97/70 97/70 103/16 O2 Sat by Pulse Oximetry 09/05/21 09/05/21 09/05/21 08:15 08:31 08:45 Temperature Pulse Rate 107 H 105 H 102 H Pulse Rate [ From Monitor] Respiratory 28 H 30 H 30 H Rate Blood Pressure 103/16 132/15 132/15 O2 Sat by Pulse Oximetry - Labs CBC & Chem 7: 09/05/21 04:10 09/05/21 04:10 Labs: Abnormal lab results 09/04/21 09/04/21 09/04/21 Range/Units 09:13 09:13 09:13 WBC (4.5-11.0) K/mm3 RBC (3.65-5.03) M/mm3 Hgb (10.1-14.3) gm/dl Hct (30.3-42.9) % RDW (13.2-15.2) % Seg Neuts % (Manual) 87.0 H (40.0-70.0) % Lymphocytes % (Manual) 10.0 L (13.4-35.0) % Nucleated RBC % (0.0-0.9) % Seg Neutrophils # Man (1.8-7.7) K/mm3 Lymphocytes # (Manual) 0.8 L (1.2-5.4) K/mm3 ABG pH (7.350-7.450) pH Units ABG pO2 (80.0-90.0) mm Hg ABG HCO3 (20.0-26.0) mmol/L ABG Base Excess (-2.0-3.0) mmol/L ABG Hemoglobin (12.0-16.0) gm/dl Sodium 133 L (137-145) mmol/L Potassium 3.1 L (3.6-5.0) mmol/L Carbon Dioxide 16 L (22-30) mmol/L BUN 63 H (7-17) mg/dL Creatinine 2.9 H (0.6-1.2) mg/dL Glucose 118 H (65-100) mg/dL Lactic Acid (0.7-2.0) mmol/L Calcium 8.2 L (8.4-10.2) mg/dL Phosphorus (2.5-4.5) mg/dL Total Bilirubin 1.40 H (0.1-1.2) mg/dL Alkaline Phosphatase 135 H (35-129) units/L Total Creatine Kinase 25 L (30-135) units/L Troponin T 0.092 H (0.00-0.029) ng/mL C-Reactive Protein (0.00-1.30) mg/dL Albumin 1.7 L (3.9-5) g/dL Cholesterol (50-199) mg/dL LDL Cholesterol Direct (50-130) mg/dL HDL Cholesterol (40-59) mg/dL Urine WBC (Auto) (0.0-6.0) /HPF 09/04/21 09/04/21 09/04/21 Range/Units 10:13 12:25 13:17 WBC (4.5-11.0) K/mm3 RBC (3.65-5.03) M/mm3 Hgb (10.1-14.3) gm/dl Hct (30.3-42.9) % RDW (13.2-15.2) % Seg Neuts % (Manual) (40.0-70.0) % Lymphocytes % (Manual) (13.4-35.0) % Nucleated RBC % (0.0-0.9) % Seg Neutrophils # Man (1.8-7.7) K/mm3 Lymphocytes # (Manual) (1.2-5.4) K/mm3 ABG pH (7.350-7.450) pH Units ABG pO2 (80.0-90.0) mm Hg ABG HCO3 (20.0-26.0) mmol/L ABG Base Excess (-2.0-3.0) mmol/L ABG Hemoglobin (12.0-16.0) gm/dl Sodium (137-145) mmol/L Potassium (3.6-5.0) mmol/L Carbon Dioxide (22-30) mmol/L BUN (7-17) mg/dL Creatinine (0.6-1.2) mg/dL Glucose (65-100) mg/dL Lactic Acid 5.30 H* (0.7-2.0) mmol/L Calcium (8.4-10.2) mg/dL Phosphorus (2.5-4.5) mg/dL Total Bilirubin (0.1-1.2) mg/dL Alkaline Phosphatase (35-129) units/L Total Creatine Kinase (30-135) units/L Troponin T 0.046 H D (0.00-0.029) ng/mL C-Reactive Protein (0.00-1.30) mg/dL Albumin (3.9-5) g/dL Cholesterol 34 L (50-199) mg/dL LDL Cholesterol Direct 9 L (50-130) mg/dL HDL Cholesterol 16 L (40-59) mg/dL Urine WBC (Auto) > 182.0 H (0.0-6.0) /HPF 09/04/21 09/04/21 09/05/21 Range/Units 22:18 23:10 04:10 WBC 20.6 H (4.5-11.0) K/mm3 RBC 3.16 L (3.65-5.03) M/mm3 Hgb 9.1 L (10.1-14.3) gm/dl Hct 28.7 L (30.3-42.9) % RDW 21.0 H (13.2-15.2) % Seg Neuts % (Manual) 87.0 H (40.0-70.0) % Lymphocytes % (Manual) 11.0 L (13.4-35.0) % Nucleated RBC % 2.0 H (0.0-0.9) % Seg Neutrophils # Man 17.9 H (1.8-7.7) K/mm3 Lymphocytes # (Manual) (1.2-5.4) K/mm3 ABG pH 7.332 L (7.350-7.450) pH Units ABG pO2 106.6 H (80.0-90.0) mm Hg ABG HCO3 6.9 L (20.0-26.0) mmol/L ABG Base Excess -16.6 L (-2.0-3.0) mmol/L ABG Hemoglobin 10.2 L (12.0-16.0) gm/dl Sodium (137-145) mmol/L Potassium (3.6-5.0) mmol/L Carbon Dioxide (22-30) mmol/L BUN (7-17) mg/dL Creatinine (0.6-1.2) mg/dL Glucose (65-100) mg/dL Lactic Acid 6.60 H* (0.7-2.0) mmol/L Calcium (8.4-10.2) mg/dL Phosphorus (2.5-4.5) mg/dL Total Bilirubin (0.1-1.2) mg/dL Alkaline Phosphatase (35-129) units/L Total Creatine Kinase (30-135) units/L Troponin T (0.00-0.029) ng/mL C-Reactive Protein (0.00-1.30) mg/dL Albumin (3.9-5) g/dL Cholesterol (50-199) mg/dL LDL Cholesterol Direct (50-130) mg/dL HDL Cholesterol (40-59) mg/dL Urine WBC (Auto) (0.0-6.0) /HPF 09/05/21 09/05/21 09/05/21 Range/Units 04:10 04:33 09:10 WBC (4.5-11.0) K/mm3 RBC (3.65-5.03) M/mm3 Hgb (10.1-14.3) gm/dl Hct (30.3-42.9) % RDW (13.2-15.2) % Seg Neuts % (Manual) (40.0-70.0) % Lymphocytes % (Manual) (13.4-35.0) % Nucleated RBC % (0.0-0.9) % Seg Neutrophils # Man (1.8-7.7) K/mm3 Lymphocytes # (Manual) (1.2-5.4) K/mm3 ABG pH 7.018 L* (7.350-7.450) pH Units ABG pO2 122.5 H 130.1 H (80.0-90.0) mm Hg ABG HCO3 7.7 L 3.6 L (20.0-26.0) mmol/L ABG Base Excess -15.0 L -25.3 L (-2.0-3.0) mmol/L ABG Hemoglobin 9.2 L 8.6 L (12.0-16.0) gm/dl Sodium (137-145) mmol/L Potassium (3.6-5.0) mmol/L Carbon Dioxide 12 L (22-30) mmol/L BUN 55 H (7-17) mg/dL Creatinine 2.6 H (0.6-1.2) mg/dL Glucose 159 H (65-100) mg/dL Lactic Acid (0.7-2.0) mmol/L Calcium 7.3 L (8.4-10.2) mg/dL Phosphorus 5.30 H (2.5-4.5) mg/dL Total Bilirubin (0.1-1.2) mg/dL Alkaline Phosphatase (35-129) units/L Total Creatine Kinase (30-135) units/L Troponin T 0.923 H* D (0.00-0.029) ng/mL C-Reactive Protein 9.90 H (0.00-1.30) mg/dL Albumin (3.9-5) g/dL Cholesterol (50-199) mg/dL LDL Cholesterol Direct (50-130) mg/dL HDL Cholesterol (40-59) mg/dL Urine WBC (Auto) (0.0-6.0) /HPF
[2021-09-05] MEDS ORDERED: PANTOPRAZOLE 40 MG INJ IV SCH (10:00)
[2021-09-05] MEDS ORDERED: ESCITALOPRAM 10 MG TAB PO SCH (10:00)
--- NOTE | 2021-09-05 10:10 | XRay Report ---
CHEST 1 VIEW INDICATION / CLINICAL INFORMATION: ETT placement. COMPARISON: Earlier same day FINDINGS: SUPPORT DEVICES: Interval intubation with endotracheal tube approximately 2.5 cm above the agustin. HEART / MEDIASTINUM: No significant abnormality. LUNGS / PLEURA: No significant pulmonary or pleural abnormality. No pneumothorax. ADDITIONAL FINDINGS: No significant additional findings. IMPRESSION: 1. Interval intubation with endotracheal tube tip as above. 2. Otherwise, no change. Signer Name: Jose G Hemphill MD Signed: 09/05/2021 10:05 AM Workstation Name: [id number]
[2021-09-05] MEDS: levETIRAcetam 500 MG TAB PO SCH (10:11)
--- NOTE | 2021-09-05 10:23 | Progress Note ---
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 Patient remains severely hypotensive on 3 pressors and a NaBcarb gtt. Additional IVF bolus administered, Epinephrine gtt and stress dose steroids added. Cardiology consulted for NSTEMI, echo pending. Hypothermic, with leukocytosis today, cultures pending, continue empiric IV Abx. ID consult pending. Mild improvement in renal function, Nephrolology is following. Assessment and Plan #Septic Shock #NSTEMI most likely type 2 - probable source PNA vs UTI - Elevated troponinX3 most likely type 2 due to worsening renal function - With worsening acidosis this am - Now on 3 pressors- Levo, Vaso, Steven, and NaBcarb gtt - On empiric IV abx - Stress dose steroids added - Cardiology consulted, appreciate recommendations - No plan for any intervention at this time - Echo pending - Maintain adequate perfusion - Continue rehydration with cont. IVF - Continue blood pressure monitor per protocol - Titrate pressors to maintain MAP above 65 - VTE proph- Hep SubQ and SCDs to bilateral lower extremities while in bed #Acute Hypoxic Respiratory Failure #Severe Metabolic Acidosis - 09/05 Emergently intubated by anesthesia due to loss of consciousness and increase WOB - Imagings revealed Right lower lobe PNA, most likely aspiration - Vent Setting:PRVC-100%,6,12,400 - AM ABG noted - CCM consulted, appreciate recommendations - Continue empiric IV Abx and Bcarb gtt - VAP bundle addressed - Aspiration precaution HOB above 30 - Daily ABG and CXR - Continue SPO2 monitoring for SPO2 goal above 92% #Septic Shock #RLL Pneumonia- most likely Aspiration #UTI (Urinary Tract Infection) #Severe Metabolic Acidosis - Hypothermic, hypotensive, severe acidosis requiring 3 pressors and NaBcarb gtt - UA consistent with UTI, patient presented with a Zepeda Catheter from [facility] - Imagings revealed Right lower lobe PNA - Cultures and Procal pending - On empiric IV Abx- Cefepine and Vanco - ID consult pending - F/U on cultures - Daily CBC monitor #Acute Metabolic Encephalopathy #H/o CVA and Vascular Dementia - Was initially awake and responsive on admit - Now unresponsive, most likely due to sepsis/severe acidosis - CT head revealed no acute focal parenchymal lesion in the brain graft moderate cortical involution - Hold all sedative agents - Continue empiric IV Abx and Bcarb gtt - PRN Analgesia for CPOT greater than 3 - Maintenance of sleep-wake cycle #Acute Kidney Injury(ARETHA) with Acute Tubular Necrosis(ATN) - Per records, baseline Scr. is 0.8, presented with Scr. as high as 2.9 - Patient presented with zepeda from SNF - Patient as has history of bilateral Hydronephosis s/p Cystoscopy by urology in 06/2021 - Strict intake and output - Avoid nephrotoxic medications; Renally dose medications - Zepeda in place - Continue IVF for now - Monitor and replace electrolytes as needed #Dysphagia - Hold TF for now due to high pressors - Start enteral nutrition once pressors requirement is less - Nutrition consulted #GI/DVT Prophylaxis - PPI- Protonix - Heparin SubQ - SCD to bilateral lower extremities while in bed #Advance Care Planning - Disease education data, care plan, diagnoses, and prognosis were discussed with patient's granddaughter, Trista Mike @ . Patient is a FULL code. Patient's family acknowledged understanding and agreement with current care plan. The high probability of a clinically significant, sudden or life threatening deterioration of the [multiple] system(s) required my full and direct attention, intervention and personal management. The aggregate critical care time was [90] minutes. This time is in addition to time spent performing reported procedures but includes the following: [x] Data Review and interpretation [x] Patient assessment and monitoring of vital signs [x] Documentation [x] Medication orders and management Disposition Plan: ICU Total Time Spent with Patient (Minutes): 90 History Interval history: Patient seen and examined at the bedside. S/p emergent intubation due to loss of consciousness and increased WOB. Patient is now on 3 pressors and a bcarb gtt. Unresponsive, not on any sedations. Hospitalist Physical - Constitutional Vitals: Temp Pulse Resp BP Pulse Ox 96.4 F L 102 H 30 H 132/15 72 L 09/05/21 04:00 09/05/21 08:45 09/05/21 08:45 09/05/21 08:45 09/05/21 06:15 General appearance: Present: no acute distress, other (Intubated, unresponsive, not on any sedations) - EENT Eyes: Present: PERRL - Respiratory Respiratory effort: normal Respiratory: bilateral: diminished - Cardiovascular Rhythm: regular Heart Sounds: Present: S1 & S2 - Extremities Extremities: no ischemia, pulses intact, pulses symmetrical Extremity abnormal: edema - Peripheral Assessment Generalized Edema Type: Non-pitting Edema Degree: 1+ Capillary Refill: < 3 seconds Skin Temperature: Warm Peripheral Pulses: within normal limits - Abdominal General gastrointestinal: soft, non-distended, normal bowel sounds - Integumentary Integumentary: Present: warm, dry - Psychiatric Psychiatric: other (Intubated, unresponsive, not on any sedations) - Neurologic Neurologic: other (Intubated, unresponsive, not on any sedations) - Allied Health Allied health notes reviewed: nursing HEART Score - HEART Score Troponin: Troponin T 0.923 ng/mL (0.00-0.029) H* D 09/05/21 04:10 Results - Labs CBC & Chem 7: 09/05/21 13:50 09/05/21 04:10 Labs: Laboratory Last Values WBC 20.6 K/mm3 (4.5-11.0) H 09/05/21 04:10 RBC 3.16 M/mm3 (3.65-5.03) L 09/05/21 04:10 Hgb 9.1 gm/dl (10.1-14.3) L 09/05/21 04:10 Hct 28.7 % (30.3-42.9) L 09/05/21 04:10 MCV 91 fl (79-97) 09/05/21 04:10 MCH 29 pg (28-32) 09/05/21 04:10 MCHC 32 % (30-34) 09/05/21 04:10 RDW 21.0 % (13.2-15.2) H 09/05/21 04:10 Plt Count 180 K/mm3 (140-440) 09/05/21 04:10 Add Manual Diff Complete 09/05/21 04:10 Total Counted 100 09/05/21 04:10 Seg Neuts % (Manual) 87.0 % (40.0-70.0) H 09/05/21 04:10 Band Neutrophils % 0 % 09/05/21 04:10 Lymphocytes % (Manual) 11.0 % (13.4-35.0) L 09/05/21 04:10 Reactive Lymphs % (Man) 0 % 09/05/21 04:10 Monocytes % (Manual) 2.0 % (0.0-7.3) 09/05/21 04:10 Eosinophils % (Manual) 0 % (0.0-4.3) 09/05/21 04:10 Basophils % (Manual) 0 % (0.0-1.8) 09/05/21 04:10 Metamyelocytes % 0 % 09/05/21 04:10 Myelocytes % 0 % 09/05/21 04:10 Promyelocytes % 0 % 09/05/21 04:10 Blast Cells % 0 % 09/05/21 04:10 Nucleated RBC % 2.0 % (0.0-0.9) H 09/05/21 04:10 Seg Neutrophils # Man 17.9 K/mm3 (1.8-7.7) H 09/05/21 04:10 Band Neutrophils # 0.0 K/mm3 09/05/21 04:10 Lymphocytes # (Manual) 2.3 K/mm3 (1.2-5.4) 09/05/21 04:10 Abs React Lymphs (Man) 0.0 K/mm3 09/05/21 04:10 Monocytes # (Manual) 0.4 K/mm3 (0.0-0.8) 09/05/21 04:10 Eosinophils # (Manual) 0.0 K/mm3 (0.0-0.4) 09/05/21 04:10 Basophils # (Manual) 0.0 K/mm3 (0.0-0.1) 09/05/21 04:10 Metamyelocytes # 0.0 K/mm3 09/05/21 04:10 Myelocytes # 0.0 K/mm3 09/05/21 04:10 Promyelocytes # 0.0 K/mm3 09/05/21 04:10 Blast Cells # 0.0 K/mm3 09/05/21 04:10 WBC Morphology Not Reportable 09/05/21 04:10 Hypersegmented Neuts Not Reportable 09/05/21 04:10 Hyposegmented Neuts Not Reportable 09/05/21 04:10 Hypogranular Neuts Not Reportable 09/05/21 04:10 Smudge Cells Not Reportable 09/05/21 04:10 Toxic Granulation Not Reportable 09/05/21 04:10 Toxic Vacuolation Not Reportable 09/05/21 04:10 Dohle Bodies Not Reportable 09/05/21 04:10 Pelger-Huet Anomaly Not Reportable 09/05/21 04:10 Ward Rods Not Reportable 09/05/21 04:10 Platelet Estimate Consistent w auto 09/05/21 04:10 Clumped Platelets Not Reportable 09/05/21 04:10 Plt Clumps, EDTA Not Reportable 09/05/21 04:10 Large Platelets Not Reportable 09/05/21 04:10 Giant Platelets Not Reportable 09/05/21 04:10 Platelet Satelliting Not Reportable 09/05/21 04:10 Plt Morphology Comment Not Reportable 09/05/21 04:10 RBC Morphology Not Reportable 09/05/21 04:10 Dimorphic RBCs Not Reportable 09/05/21 04:10 Polychromasia Not Reportable 09/05/21 04:10 Hypochromasia Not Reportable 09/05/21 04:10 Poikilocytosis Not Reportable 09/05/21 04:10 Anisocytosis 1+ 09/05/21 04:10 Microcytosis Not Reportable 09/05/21 04:10 Macrocytosis Not Reportable 09/05/21 04:10 Spherocytes Not Reportable 09/05/21 04:10 Pappenheimer Bodies Not Reportable 09/05/21 04:10 Sickle Cells Not Reportable 09/05/21 04:10 Target Cells 1+ 09/05/21 04:10 Tear Drop Cells Not Reportable 09/05/21 04:10 Ovalocytes Not Reportable 09/05/21 04:10 Helmet Cells Not Reportable 09/05/21 04:10 [place] Bodies Not Reportable 09/05/21 04:10 [place] Rings Not Reportable 09/05/21 04:10 [place] Cells Not Reportable 09/05/21 04:10 Bite Cells Not Reportable 09/05/21 04:10 Crenated Cell Not Reportable 09/05/21 04:10 Elliptocytes 1+ 09/05/21 04:10 Acanthocytes (Spur) Not Reportable 09/05/21 04:10 Rouleaux Not Reportable 09/05/21 04:10 Hemoglobin C Crystals Not Reportable 09/05/21 04:10 Schistocytes Not Reportable 09/05/21 04:10 Malaria parasites Not Reportable 09/05/21 04:10 [place] Bodies Not Reportable 09/05/21 04:10 Hem Pathologist Commnt No 09/05/21 04:10 APTT 36.0 Sec. (24.2-36.6) 09/04/21 09:13 ABG pH 7.018 pH Units (7.350-7.450) L* 09/05/21 09:10 ABG pCO2 14.5 mm Hg 09/05/21 09:10 ABG pO2 130.1 mm Hg (80.0-90.0) H 09/05/21 09:10 ABG HCO3 3.6 mmol/L (20.0-26.0) L 09/05/21 09:10 ABG O2 Saturation 97.5 % (95.0-99.0) 09/05/21 09:10 ABG O2 Content 11.9 (0.0-44) 09/05/21 09:10 ABG Base Excess -25.3 mmol/L (-2.0-3.0) L 09/05/21 09:10 ABG Hemoglobin 8.6 gm/dl (12.0-16.0) L 09/05/21 09:10 ABG Carboxyhemoglobin 1.3 % (0.0-5.0) 09/05/21 09:10 ABG Methemoglobin 0.5 % (0.0-1.5) 09/05/21 09:10 Oxyhemoglobin 95.7 % (95.0-99.0) 09/05/21 09:10 FiO2 21 % 09/05/21 09:10 Sodium 138 mmol/L (137-145) 09/05/21 04:10 Potassium 4.0 mmol/L (3.6-5.0) D 09/05/21 04:10 Chloride 105.9 mmol/L (98-107) 09/05/21 04:10 Carbon Dioxide 12 mmol/L (22-30) L 09/05/21 04:10 Anion Gap 24 mmol/L 09/05/21 04:10 BUN 55 mg/dL (7-17) H 09/05/21 04:10 Creatinine 2.6 mg/dL (0.6-1.2) H 09/05/21 04:10 Estimated GFR 22 ml/min 09/05/21 04:10 BUN/Creatinine Ratio 21 % 09/05/21 04:10 Glucose 159 mg/dL (65-100) H 09/05/21 04:10 Lactic Acid 6.60 mmol/L (0.7-2.0) H* 09/04/21 23:10 Calcium 7.3 mg/dL (8.4-10.2) L 09/05/21 04:10 Phosphorus 5.30 mg/dL (2.5-4.5) H 09/05/21 04:10 Magnesium 1.90 mg/dL (1.7-2.3) 09/05/21 04:10 Total Bilirubin 1.40 mg/dL (0.1-1.2) H 09/04/21 09:13 AST 14 units/L (5-40) 09/04/21 09:13 ALT 13 units/L (7-56) 09/04/21 09:13 Alkaline Phosphatase 135 units/L (35-129) H 09/04/21 09:13 Total Creatine Kinase 25 units/L (30-135) L 09/04/21 09:13 CK-MB (CK-2) < 1.0 ng/mL (0.0-4.0) 09/04/21 09:13 CK-MB (CK-2) Rel Index 4.0 (0-4) 09/04/21 09:13 Troponin T 0.923 ng/mL (0.00-0.029) H* D 09/05/21 04:10 C-Reactive Protein 9.90 mg/dL (0.00-1.30) H 09/05/21 04:10 Total Protein 6.5 g/dL (6.3-8.2) 09/04/21 09:13 Albumin 1.7 g/dL (3.9-5) L 09/04/21 09:13 Albumin/Globulin Ratio 0.4 % 09/04/21 09:13 Triglycerides 60 mg/dL (2-149) 09/04/21 12:25 Cholesterol 34 mg/dL (50-199) L 09/04/21 12:25 LDL Cholesterol Direct 9 mg/dL (50-130) L 09/04/21 12:25 HDL Cholesterol 16 mg/dL (40-59) L 09/04/21 12:25 Cholesterol/HDL Ratio 2.12 % 09/04/21 12:25 Urine Color Dee (Yellow) 09/04/21 13:17 Urine Turbidity Cloudy (Clear) 09/04/21 13:17 Urine pH 5.0 (5.0-7.0) 09/04/21 13:17 Ur Specific [place] 1.013 (1.003-1.030) 09/04/21 13:17 Urine Protein 100 mg/dl mg/dL (Negative) 09/04/21 13:17 Urine Glucose (UA) Neg mg/dL (Negative) 09/04/21 13:17 Urine Ketones Neg mg/dL (Negative) 09/04/21 13:17 Urine Blood Lg (Negative) 09/04/21 13:17 Urine Nitrite Neg (Negative) 09/04/21 13:17 Urine Bilirubin Neg (Negative) 09/04/21 13:17 Urine Urobilinogen < 2.0 mg/dL (<2.0) 09/04/21 13:17 Ur Leukocyte Esterase Lg (Negative) 09/04/21 13:17 Urine WBC (Auto) > 182.0 /HPF (0.0-6.0) H 09/04/21 13:17 Urine RBC (Auto) 43.0 /HPF (0.0-6.0) 09/04/21 13:17 U Epithel Cells (Auto) 9.0 /HPF (0-13.0) 09/04/21 13:17 Urine Bacteria (Auto) 4+ /HPF (Negative) 09/04/21 13:17 Urine WBC Clumps 3+ /HPF 09/04/21 13:17 Hyaline Casts 8 /LPF 09/04/21 13:17 Urine Mucus Few /HPF 09/04/21 13:17 Urine Yeast (Budding) 3+ /HPF 09/04/21 13:17 Blood Type O POSITIVE 09/04/21 12:27 Antibody Screen Negative 09/04/21 12:27 Microbiology: Microbiology 09/04/21 09:23 Peripheral/Venous Blood Culture - Preliminary Culture in Progress 09/04/21 09:23 Peripheral/Venous Blood Culture - Preliminary Culture in Progress Zepeda/IV: Voiding Method Indwelling Catheter Active Medications - Current Medications Current Medications: Generic Name Dose Route Start Last Admin Trade Name Freq PRN Reason Stop Dose Admin Acetaminophen 650 mg 09/04/21 12:25 Acetaminophen 325 Mg Tab PO Q6H PRN Pain, Mild (1-3) Acetaminophen 650 mg 09/04/21 12:25 Acetaminophen 650 Mg Rect Supp IN Q6H PRN Pain MILD(1-3)/Fever >100.5/SEE Albuterol 2.5 mg 09/04/21 12:25 Albuterol 2.5 Mg/3 Ml Nebu IH Q3HRT PRN Shortness Of Breath Atorvastatin Calcium 40 mg 09/04/21 22:00 09/04/21 22:48 Atorvastatin 40 Mg Tab PO Not Given QHS MADISYN Escitalopram Oxalate 20 mg 09/05/21 10:00 Escitalopram 10 Mg Tab PO QDAY MADISYN Heparin Sodium (Porcine) 5,000 unit 09/05/21 09:00 Heparin 5,000 Unit/1 Ml Vial SUB-Q Q8HR MADISYN NORepinephrine/NS 8 MG-250 ML 8 mg in 250 mls @ 3.75 mls/hr 09/04/21 12:00 09/05/21 07:00 Norepinephrine/Ns 8 Mg-250 Ml (Double Conc) IV 30 mcg/min TITRATE MADISYN 56.25 mls/hr Administration Protocol 2 MCG/MIN Vasopressin 20 unit/ Sodium 101 mls @ 9.09 mls/hr 09/04/21 18:00 09/05/21 07:52 Chloride IV 0.03 units/min TITR MADISYN 9.09 mls/hr Administration Protocol 0.03 UNITS/MIN Phenylephrine HCl 100 mg/ 100 mls @ 3 mls/hr 09/05/21 06:30 09/05/21 07:46 Sodium Chloride IV 50 mcg/min TITR MADISYN 3 mls/hr Administration Protocol 50 MCG/MIN Cefepime HCl 2 gm in 100 mls @ 200 mls/hr 09/05/21 18:00 Cefepime/Ns 2 Gm/100 Ml IV Q24H MADISYN Sodium Bicarbonate 150 meq/ 1,150 mls @ 150 mls/hr 09/05/21 11:00 Sodium Chloride IV DIRECT MADISYN Levetiracetam 500 mg 09/04/21 22:00 09/04/21 22:48 Levetiracetam 500 Mg Tab PO Not Given BID MADISYN Melatonin 5 mg 09/04/21 13:38 Melatonin 5 Mg Tab PO HS PRN Insomnia Mirtazapine 15 mg 09/04/21 22:00 09/04/21 23:18 Mirtazapine 15 Mg Tab PO Not Given QHS MADISYN Pantoprazole Sodium 40 mg 09/05/21 10:00 Pantoprazole 40 Mg Inj IV QDAY MADISYN Senna 8.6 mg 09/04/21 12:30 Sennosides 8.6 Mg Tab PO HS PRN Constipation Sodium Chloride 10 ml 09/04/21 22:00 09/04/21 23:18 Sodium Chloride 0.9% 10 Ml Flush Syringe IV 10 ml BID MADISYN Administration Sodium Chloride 10 ml 09/04/21 12:25 Sodium Chloride 0.9% 10 Ml Flush Syringe IV PRN PRN LINE FLUSH <ANA SHORE - Last Filed: 09/06/21 07:18> Assessment and Plan Assessment and plan: I saw and evaluated the patient. I agree with the findings and the plan of care as documented in the Nurse Practitioner's~note, with the following corrections and additions. - Patient Problems (1) Acute kidney injury (ARETHA) with acute tubular necrosis (ATN) Status: Acute (2) Acute respiratory failure requiring reintubation Status: Acute (3) NSTEMI (non-ST elevated myocardial infarction) Status: Acute (4) Septic shock Status: Acute Hospitalist Physical - Constitutional Vitals: Temp Pulse Resp BP Pulse Ox 96.4 F L 83 0 L 102/63 0 L 09/05/21 04:00 09/05/21 14:45 09/05/21 15:31 09/05/21 15:31 09/05/21 16:30 HEART Score - HEART Score Troponin: Troponin T 1.570 ng/mL (0.00-0.029) H* D 09/05/21 13:00 Results - Labs CBC & Chem 7: 09/05/21 13:50 09/05/21 04:10 Labs: Laboratory Last Values WBC 20.3 K/mm3 (4.5-11.0) H 09/05/21 13:50 RBC 1.81 M/mm3 (3.65-5.03) L 09/05/21 13:50 Hgb 5.2 gm/dl (10.1-14.3) L* D 09/05/21 13:50 Hct 17.2 % (30.3-42.9) L* D 09/05/21 13:50 MCV 95 fl (79-97) 09/05/21 13:50 MCH 29 pg (28-32) 09/05/21 13:50 MCHC 30 % (30-34) 09/05/21 13:50 RDW 21.4 % (13.2-15.2) H 09/05/21 13:50 Plt Count 63 K/mm3 (140-440) L 09/05/21 13:50 Add Manual Diff Complete 09/05/21 04:10 Total Counted 100 09/05/21 04:10 Seg Neuts % (Manual) 87.0 % (40.0-70.0) H 09/05/21 04:10 Band Neutrophils % 0 % 09/05/21 04:10 Lymphocytes % (Manual) 11.0 % (13.4-35.0) L 09/05/21 04:10 Reactive Lymphs % (Man) 0 % 09/05/21 04:10 Monocytes % (Manual) 2.0 % (0.0-7.3) 09/05/21 04:10 Eosinophils % (Manual) 0 % (0.0-4.3) 09/05/21 04:10 Basophils % (Manual) 0 % (0.0-1.8) 09/05/21 04:10 Metamyelocytes % 0 % 09/05/21 04:10 Myelocytes % 0 % 09/05/21 04:10 Promyelocytes % 0 % 09/05/21 04:10 Blast Cells % 0 % 09/05/21 04:10 Nucleated RBC % 2.0 % (0.0-0.9) H 09/05/21 04:10 Seg Neutrophils # Man 17.9 K/mm3 (1.8-7.7) H 09/05/21 04:10 Band Neutrophils # 0.0 K/mm3 09/05/21 04:10 Lymphocytes # (Manual) 2.3 K/mm3 (1.2-5.4) 09/05/21 04:10 Abs React Lymphs (Man) 0.0 K/mm3 09/05/21 04:10 Monocytes # (Manual) 0.4 K/mm3 (0.0-0.8) 09/05/21 04:10 Eosinophils # (Manual) 0.0 K/mm3 (0.0-0.4) 09/05/21 04:10 Basophils # (Manual) 0.0 K/mm3 (0.0-0.1) 09/05/21 04:10 Metamyelocytes # 0.0 K/mm3 09/05/21 04:10 Myelocytes # 0.0 K/mm3 09/05/21 04:10 Promyelocytes # 0.0 K/mm3 09/05/21 04:10 Blast Cells # 0.0 K/mm3 09/05/21 04:10 WBC Morphology Not Reportable 09/05/21 04:10 Hypersegmented Neuts Not Reportable 09/05/21 04:10 Hyposegmented Neuts Not Reportable 09/05/21 04:10 Hypogranular Neuts Not Reportable 09/05/21 04:10 Smudge Cells Not Reportable 09/05/21 04:10 Toxic Granulation Not Reportable 09/05/21 04:10 Toxic Vacuolation Not Reportable 09/05/21 04:10 Dohle Bodies Not Reportable 09/05/21 04:10 [place] Anomaly Not Reportable 09/05/21 04:10 [place] Rods Not Reportable 09/05/21 04:10 Platelet Estimate Consistent w auto 09/05/21 04:10 Clumped Platelets Not Reportable 09/05/21 04:10 Plt Clumps, EDTA Not Reportable 09/05/21 04:10 Large Platelets Not Reportable 09/05/21 04:10 Giant Platelets Not Reportable 09/05/21 04:10 Platelet Satelliting Not Reportable 09/05/21 04:10 Plt Morphology Comment Not Reportable 09/05/21 04:10 RBC Morphology Not Reportable 09/05/21 04:10 Dimorphic RBCs Not Reportable 09/05/21 04:10 Polychromasia Not Reportable 09/05/21 04:10 Hypochromasia Not Reportable 09/05/21 04:10 Poikilocytosis Not Reportable 09/05/21 04:10 Anisocytosis 1+ 09/05/21 04:10 Microcytosis Not Reportable 09/05/21 04:10 Macrocytosis Not Reportable 09/05/21 04:10 Spherocytes Not Reportable 09/05/21 04:10 Pappenheimer Bodies Not Reportable 09/05/21 04:10 Sickle Cells Not Reportable 09/05/21 04:10 Target Cells 1+ 09/05/21 04:10 Tear Drop Cells Not Reportable 09/05/21 04:10 Ovalocytes Not Reportable 09/05/21 04:10 Helmet Cells Not Reportable 09/05/21 04:10 [place] Bodies Not Reportable 09/05/21 04:10 [place] Rings Not Reportable 09/05/21 04:10 [place] Cells Not Reportable 09/05/21 04:10 Bite Cells Not Reportable 09/05/21 04:10 Crenated Cell Not Reportable 09/05/21 04:10 Elliptocytes 1+ 09/05/21 04:10 Acanthocytes (Spur) Not Reportable 09/05/21 04:10 Rouleaux Not Reportable 09/05/21 04:10 Hemoglobin C Crystals Not Reportable 09/05/21 04:10 Schistocytes Not Reportable 09/05/21 04:10 [place] parasites Not Reportable 09/05/21 04:10 [place] Bodies Not Reportable 09/05/21 04:10 Hem Pathologist Commnt No 09/05/21 04:10 APTT 36.0 Sec. (24.2-36.6) 09/04/21 09:13 ABG pH 7.177 pH Units (7.350-7.450) L* 09/05/21 13:10 ABG pCO2 12.2 mm Hg 09/05/21 13:10 ABG pO2 346.8 mm Hg (80.0-90.0) H 09/05/21 13:10 ABG HCO3 4.4 mmol/L (20.0-26.0) L 09/05/21 13:10 ABG O2 Saturation 99.5 % (95.0-99.0) H 09/05/21 13:10 ABG O2 Content 10.5 (0.0-44) 09/05/21 13:10 ABG Base Excess -21.9 mmol/L (-2.0-3.0) L 09/05/21 13:10 ABG Hemoglobin 6.9 gm/dl (12.0-16.0) L 09/05/21 13:10 ABG Carboxyhemoglobin 1.0 % (0.0-5.0) 09/05/21 13:10 ABG Methemoglobin 0.5 % (0.0-1.5) 09/05/21 13:10 Oxyhemoglobin 98.0 % (95.0-99.0) 09/05/21 13:10 FiO2 10 % 09/05/21 13:10 Sodium 138 mmol/L (137-145) 09/05/21 04:10 Potassium 4.0 mmol/L (3.6-5.0) D 09/05/21 04:10 Chloride 105.9 mmol/L (98-107) 09/05/21 04:10 Carbon Dioxide 12 mmol/L (22-30) L 09/05/21 04:10 Anion Gap 24 mmol/L 09/05/21 04:10 BUN 55 mg/dL (7-17) H 09/05/21 04:10 Creatinine 2.6 mg/dL (0.6-1.2) H 09/05/21 04:10 Estimated GFR 22 ml/min 09/05/21 04:10 BUN/Creatinine Ratio 21 % 09/05/21 04:10 Glucose 159 mg/dL (65-100) H 09/05/21 04:10 Lactic Acid 18.60 mmol/L (0.7-2.0) H* 09/05/21 13:00 Calcium 7.3 mg/dL (8.4-10.2) L 09/05/21 04:10 Phosphorus 5.30 mg/dL (2.5-4.5) H 09/05/21 04:10 Magnesium 1.90 mg/dL (1.7-2.3) 09/05/21 04:10 Total Bilirubin 1.40 mg/dL (0.1-1.2) H 09/04/21 09:13 AST 14 units/L (5-40) 09/04/21 09:13 ALT 13 units/L (7-56) 09/04/21 09:13 Alkaline Phosphatase 135 units/L (35-129) H 09/04/21 09:13 Total Creatine Kinase 25 units/L (30-135) L 09/04/21 09:13 CK-MB (CK-2) < 1.0 ng/mL (0.0-4.0) 09/04/21 09:13 CK-MB (CK-2) Rel Index 4.0 (0-4) 09/04/21 09:13 Troponin T 1.570 ng/mL (0.00-0.029) H* D 09/05/21 13:00 C-Reactive Protein 9.90 mg/dL (0.00-1.30) H 09/05/21 04:10 Total Protein 6.5 g/dL (6.3-8.2) 09/04/21 09:13 Albumin 1.7 g/dL (3.9-5) L 09/04/21 09:13 Albumin/Globulin Ratio 0.4 % 09/04/21 09:13 Triglycerides 60 mg/dL (2-149) 09/04/21 12:25 Cholesterol 34 mg/dL (50-199) L 09/04/21 12:25 LDL Cholesterol Direct 9 mg/dL (50-130) L 09/04/21 12:25 HDL Cholesterol 16 mg/dL (40-59) L 09/04/21 12:25 Cholesterol/HDL Ratio 2.12 % 09/04/21 12:25 Procalcitonin 49.69 ng/mL (<0.15) 09/05/21 04:10 Urine Color Dee (Yellow) 09/04/21 13:17 Urine Turbidity Cloudy (Clear) 09/04/21 13:17 Urine pH 5.0 (5.0-7.0) 09/04/21 13:17 Ur Specific [place] 1.013 (1.003-1.030) 09/04/21 13:17 Urine Protein 100 mg/dl mg/dL (Negative) 09/04/21 13:17 Urine Glucose (UA) Neg mg/dL (Negative) 09/04/21 13:17 Urine Ketones Neg mg/dL (Negative) 09/04/21 13:17 Urine Blood Lg (Negative) 09/04/21 13:17 Urine Nitrite Neg (Negative) 09/04/21 13:17 Urine Bilirubin Neg (Negative) 09/04/21 13:17 Urine Urobilinogen < 2.0 mg/dL (<2.0) 09/04/21 13:17 Ur Leukocyte Esterase Lg (Negative) 09/04/21 13:17 Urine WBC (Auto) > 182.0 /HPF (0.0-6.0) H 09/04/21 13:17 Urine RBC (Auto) 43.0 /HPF (0.0-6.0) 09/04/21 13:17 U Epithel Cells (Auto) 9.0 /HPF (0-13.0) 09/04/21 13:17 Urine Bacteria (Auto) 4+ /HPF (Negative) 09/04/21 13:17 Urine WBC Clumps 3+ /HPF 09/04/21 13:17 Hyaline Casts 8 /LPF 09/04/21 13:17 Urine Mucus Few /HPF 09/04/21 13:17 Urine Yeast (Budding) 3+ /HPF 09/04/21 13:17 Vancomycin Trough 11.7 ug/mL (5.0-20.0) 09/05/21 13:00 Blood Type O POSITIVE 09/04/21 12:27 Antibody Screen Negative 09/04/21 12:27 Microbiology: Microbiology 09/04/21 09:23 Peripheral/Venous Blood Culture - Preliminary NO GROWTH AFTER 24 HOURS 09/04/21 09:23 Peripheral/Venous Blood Culture - Preliminary NO GROWTH AFTER 24 HOURS Zepeda/IV: Voiding Method Indwelling Catheter Nutrition/Malnutrition Assess - Dietary Evaluation Nutrition/Malnutrition Findings: Nutrition Notes Start: 09/05/21 11:38 Freq: Status: Discharge Protocol: Document 09/05/21 11:38 [facility] (Rec: 09/05/21 11:46 [facility] [id number]) Nutrition Notes Need for Assessment 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 Pt is from a [place] and was intubated this am. PMHx includes vascular dementia, cerebral atherosclerosis, GERD and debility. Burn Absent Trauma Absent Difficulty In Swallowing Skin Integrity/Comment Multiple skin tears Minimum of two criteria No Fluid Accumulation Moderate to Severe (severe) #1 Nutrition Diagnosis Swallowing difficulty Etiology hx of CVA with dysphagia As Evidenced by Signs and Symptoms pt NPO Is patient on ventilator? Yes Is Patient Ambulatory and/or Out of Bed No REE-([place] [facility] [phone] Calculation Used for Recommendations [facility] Additional Notes Pro needs 0.8-1.2g/k-82g/ day Fluid needs 1ml/kcal Nutrition Intervention Nutrition Support: Start EN support when medically feasible; recommend Nepro at 35ml/hr with 150ml water flushes. Goal #1 Initiate EN support to meet nutrient needs Anticipated Discharge Needs: Continue EN support if necessary Follow-Up By: 09/06/21 Additional Comments F/U: TF consult, pressor support, vent status
--- NOTE | 2021-09-05 10:44 | Consultation ---
History of Present Illness Consult date: 09/05/21 Requesting physician: ANA SHORE Consult reason: elevated troponin History of present illness: 76 YO Female [facility] Facility Resident with Vascular Dementia, Cerebral Atherosclerosis, GERD, CVA complicated by Dysphagia and debility presents to ED for evaluation. Patient is lethargic with diminished cognition at the time my evaluation and is intubated. Patient history taken medial records. As per record the patient was found to have decreased responsiveness today as well as tracheal aspirate in the oropharyngeal space. EMS was notified and upon arrival the patient was found to be in distress and subsequent transported to [facility] for further care and evaluation of the aforementioned symptoms. Patient given persistent hypotensive on 3 pressors and respiratory status was intubated. Cardiology was consulted for abnormal troponin. Past History Past Medical History: GERD, stroke, other (See HPI) Past Surgical History: bowel surgery Social history: single. denies: smoking, alcohol abuse, prescription drug abuse Family history: hypertension Medications and Allergies Allergies Allergy/AdvReac Type Severity Reaction Status Date / Time cheese Allergy Hives Verified 09/04/21 07:30 Milk Containing Products Allergy Hives Verified 09/04/21 07:30 tree nut Allergy Hives Verified 09/04/21 07:30 Home Medications Medication Instructions Recorded Confirmed Last Taken Type Acetaminophen [Tylenol] 650 mg PO Q6H PRN 05/09/21 05/09/21 Unknown History Amlodipine Besylate [Norvasc] 5 mg PO DAILY 05/09/21 05/09/21 Unknown History Atorvastatin [Lipitor] 40 mg PO QHS 05/09/21 05/09/21 Unknown History Cyanocobalamin (Vitamin B-12) 500 mcg PO DAILY 05/09/21 05/09/21 Unknown History [Vitamin B-12] Dicyclomine [Bentyl] 10 mg PO BID PRN 05/09/21 05/09/21 Unknown History HYDROcodone/ACETAMINOPHEN 5 - 325 mg PO Q12H PRN 05/09/21 05/09/21 Unknown History [Hydrocodone-Acetamin 2.5-325] Melatonin [Melatonin 3MG TAB] 3 mg PO HS PRN 05/09/21 05/09/21 Unknown History Pantoprazole [Protonix TAB] 40 mg PO BID 05/09/21 05/09/21 Unknown History Sennosides [Senna] 8.6 mg PO HS PRN 05/09/21 05/09/21 Unknown History Sucralfate [Carafate] 1 gm PO ACHS 05/09/21 05/09/21 Unknown History Trospium Chloride [Trospium 60 mg PO DAILY 05/09/21 05/09/21 Unknown History Chloride ER] hydrALAZINE [Apresoline TAB] 10 mg PO Q6H 05/09/21 05/09/21 Unknown History levETIRAcetam [Keppra TAB] 500 mg PO BID 05/09/21 05/09/21 Unknown History Escitalopram [Lexapro] 20 mg PO QDAY 30 Days #30 tablet 05/14/21 Unknown Rx Mirtazapine [Remeron 15mg TAB] 15 mg PO QHS 30 Days #30 tablet 05/14/21 Unknown Rx QUEtiapine [SEROquel] 25 mg PO BID 30 Days #60 tablet 05/14/21 Unknown Rx Active Meds: Active Medications Acetaminophen (Acetaminophen 325 Mg Tab) 650 mg PO Q6H PRN PRN Reason: Pain, Mild (1-3) Acetaminophen (Acetaminophen 650 Mg Rect Supp) 650 mg VA Q6H PRN PRN Reason: Pain MILD(1-3)/Fever >100.5/SEE Albuterol (Albuterol 2.5 Mg/3 Ml Nebu) 2.5 mg IH Q3HRT PRN PRN Reason: Shortness Of Breath Atorvastatin Calcium (Atorvastatin 40 Mg Tab) 40 mg PO QHS MADISYN Last Admin: 09/04/21 22:48 Dose: Not Given Escitalopram Oxalate (Escitalopram 10 Mg Tab) 20 mg PO QDAY [facility] Heparin Sodium (Porcine) (Heparin 5,000 Unit/1 Ml Vial) 5,000 unit SUB-Q Q8HR [facility] NORepinephrine/NS 8 MG-250 ML (Norepinephrine/Ns 8 Mg-250 Ml (Double Conc)) 8 mg in 250 mls @ 3.75 mls/hr IV TITRATE MADISYN; Protocol Last Admin: 09/05/21 07:00 Dose: 30 mcg/min, 56.25 mls/hr Vasopressin 20 unit/ Sodium (Chloride) 101 mls @ 9.09 mls/hr IV TITR MADISYN; Protocol Last Admin: 09/05/21 07:52 Dose: 0.03 units/min, 9.09 mls/hr Phenylephrine HCl 100 mg/ (Sodium Chloride) 100 mls @ 3 mls/hr IV TITR MADISYN; Protocol Last Admin: 09/05/21 07:46 Dose: 50 mcg/min, 3 mls/hr Cefepime HCl (Cefepime/Ns 2 Gm/100 Ml) 2 gm in 100 mls @ 200 mls/hr IV Q24H [facility] Sodium Bicarbonate 150 meq/ (Sodium Chloride) 1,150 mls @ 150 mls/hr IV DIRECT MADISYN Levetiracetam (Levetiracetam 500 Mg Tab) 500 mg PO BID [facility] Last Admin: 09/04/21 22:48 Dose: Not Given Melatonin (Melatonin 5 Mg Tab) 5 mg PO HS PRN PRN Reason: Insomnia Mirtazapine (Mirtazapine 15 Mg Tab) 15 mg PO QHS [facility] Last Admin: 09/04/21 23:18 Dose: Not Given Pantoprazole Sodium (Pantoprazole 40 Mg Inj) 40 mg IV QDAY [facility] Senna (Sennosides 8.6 Mg Tab) 8.6 mg PO HS PRN PRN Reason: Constipation Sodium Chloride (Sodium Chloride 0.9% 10 Ml Flush Syringe) 10 ml IV BID [facility] Last Admin: 09/04/21 23:18 Dose: 10 ml Sodium Chloride (Sodium Chloride 0.9% 10 Ml Flush Syringe) 10 ml IV PRN PRN PRN Reason: LINE FLUSH Review of Systems ROS unobtainable: due to endotracheal tube, due to mental status Physical Examination Vital Signs Temp Pulse Resp BP Pulse Ox 97.9 F 110 H 20 130/89 94 09/04/21 07:27 09/04/21 07:27 09/04/21 07:27 09/04/21 07:27 09/04/21 07:27 General appearance: other HEENT: Positive: EOMI Neck: Positive: trachea midline, JVD/HJR Cardiac: Positive: Reg Rate and Rhythm Lungs: Positive: Decreased Breath Sounds Neuro: Positive: Other Abdomen: Positive: Soft Extremities: Present: normal. Absent: edema Results 09/05/21 04:10 09/05/21 04:10 Lipids 09/04/21 Range/Units 12:25 Triglycerides 60 (2-149) mg/dL Cholesterol 34 L (50-199) mg/dL HDL Cholesterol 16 L (40-59) mg/dL Cholesterol/HDL Ratio 2.12 % CBC 09/05/21 Range/Units 04:10 WBC 20.6 H (4.5-11.0) K/mm3 RBC 3.16 L (3.65-5.03) M/mm3 Hgb 9.1 L (10.1-14.3) gm/dl Hct 28.7 L (30.3-42.9) % Plt Count 180 (140-440) K/mm3 Comprehensive Metabolic Panel 09/05/21 Range/Units 04:10 Sodium 138 (137-145) mmol/L Potassium 4.0 D (3.6-5.0) mmol/L Chloride 105.9 (98-107) mmol/L Carbon Dioxide 12 L (22-30) mmol/L BUN 55 H (7-17) mg/dL Creatinine 2.6 H (0.6-1.2) mg/dL Glucose 159 H (65-100) mg/dL Calcium 7.3 L (8.4-10.2) mg/dL EKG interpretations - Telemetry EKG Rhythm: Sinus Rhythm (Sinus rhythm nonspecific ST-T) Assessment and Plan 76-year-old snf resident with vascular dementia has sepsis with acute renal failure and respiratory failure requiring intubation abnormal troponin suggested non-STEMI type II. Patient is being treated for sepsis. Patient candidate for beta-isidro therapy. Continue DVT prophylaxis. Check echocardiogram for LV function. Continue treatment by primary care team for sep sis - Patient Problems (1) Acute respiratory failure requiring reintubation Current Visit: Yes Status: Acute (2) Acute kidney injury (ARETHA) with acute tubular necrosis (ATN) Current Visit: Yes Status: Acute (3) Aspiration pneumonia Current Visit: Yes Status: Acute Qualifiers: Aspiration pneumonia type: due to regurgitated food (4) Hypokalemia Current Visit: Yes Status: Acute (5) Lactic acid acidosis Current Visit: Yes Status: Acute (6) NSTEMI (non-ST elevated myocardial infarction) Current Visit: Yes Status: Acute Plan to address problem: type 2 (7) Pneumonia Current Visit: Yes Status: Acute (8) Septic shock Current Visit: Yes Status: Acute (9) Toxic metabolic encephalopathy Current Visit: Yes Status: Acute (10) UTI (urinary tract infection) Current Visit: Yes Status: Acute Qualifiers: Encounter type: initial encounter (11) Acute encephalopathy Current Visit: No Status: Acute (12) History of CVA (cerebrovascular accident) Current Visit: No Status: Acute (13) Hyperlipidemia Current Visit: No Status: Acute (14) Hypertension Current Visit: No Status: Acute (15) Malnutrition Current Visit: No Status: Acute Qualifiers: Protein-calorie malnutrition severity: severe
[2021-09-05] MEDS ORDERED: SODIUM BICARBONATE 150 MEQ in SODIUM CHLORIDE 0.45% 1000 ML 1,000 ML IV SCH (11:00)
[2021-09-05] MEDS ORDERED: EPINEPHrine 1 MG/1 ML 8 MG in SODIUM CHLORIDE 0.9% 250ML 242 ML IV SCH (13:00)
--- NOTE | 2021-09-05 13:16 | Progress Note ---
Assessment and Plan #Septic Shock #NSTEMI most likely type 2 - probable source PNA vs UTI - Elevated troponinX3 most likely type 2 due to worsening renal function - With worsening acidosis this am - Now on 3 pressors- Levo, Vaso, Steven, and NaBcarb gtt- titrate to keep MAP>65 - On empiric IV abx - Add stress dose steroids for vsopressor unresponsive shock -Get stat Hand H - Echo pending - Maintain adequate perfusion - Continue volume resuscitation - Continue blood pressure monitor per protocol - Titrate pressors to maintain MAP above 65 - VTE proph- Hep SubQ and SCDs to bilateral lower extremities while in bed -Placement of left femoral arterial line for invasive hemodynamic monitoring #Acute Hypoxic Respiratory Failure #Severe Metabolic Acidosis - 09/05 Emergently intubated by anesthesia due to loss of consciousness and increase WOB - Imagings revealed Right lower lobe PNA, most likely aspiration - Vent Setting:PRVC-100%,6,12,400- adjusted minute ventilation for better gas exchange - AM ABG noted - CCM consulted, appreciate recommendations - Continue empiric IV Abx and Bcarb gtt - VAP bundle addressed - Aspiration precaution HOB above 30 - Daily ABG and CXR - Continue SPO2 monitoring for SPO2 goal above 92% #Septic Shock #RLL Pneumonia- most likely Aspiration #UTI (Urinary Tract Infection) #Severe Metabolic Acidosis - Hypothermic, hypotensive, severe acidosis requiring 3 pressors and NaBcarb gtt - UA consistent with UTI, patient presented with a Zepeda Catheter from [facility] - Imaging revealed Right lower lobe PNA - Cultures and Procal pending - On empiric IV Abx- Cefepine and Vancomycin - F/U on cultures - Daily CBC monitor #Acute Metabolic Encephalopathy #H/o CVA and Vascular Dementia - Was initially awake and responsive on admit - Now unresponsive, most likely due to sepsis/severe acidosis - CT head revealed no acute focal parenchymal lesion in the brain graft moderate cortical involution - Hold all sedative agents - Continue empiric IV Abx and Bcarb gtt #Acute Kidney Injury(ARETHA) with Acute Tubular Necrosis(ATN) - Per records, baseline Scr. is 0.8, presented with Scr. as high as 2.9 - Patient presented with zepeda from 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 Acute deterioration overnight, now on 4 vasopressors, severe hypotension and severe acidosis.- discussed with primary service, order given to intubate. Objective - Exam Narrative Exam: General appearance: Present: no acute distress, other (Intubated, unresponsive, not on any sedations) - EENT Eyes: Present: PERRL - Respiratory Respiratory effort: normal Respiratory: bilateral: diminished - Cardiovascular Rhythm: regular Heart Sounds: Present: S1 & S2 - Extremities Extremities: no ischemia, pulses intact, pulses symmetrical Extremity abnormal: edema - Peripheral Assessment Generalized Edema Type: Non-pitting Edema Degree: 1+ Capillary Refill: < 3 seconds Skin Temperature: Warm Peripheral Pulses: within normal limits - Abdominal General gastrointestinal: soft, non-distended, normal bowel sounds - Integumentary Integumentary: Present: warm, dry - Psychiatric Psychiatric: other (Intubated, unresponsive, not on any sedations) - Neurologic Neurologic: other (Intubated, unresponsive, not on any sedations) Vital Signs - 12hr 09/05/21 09/05/21 09/05/21 01:31 02:01 02:30 Temperature Pulse Rate 95 H 99 H 89 Pulse Rate [ From Monitor] Respiratory 18 16 21 Rate Blood Pressure 84/51 83/43 78/47 O2 Sat by Pulse 83 L 99 98 Oximetry 09/05/21 09/05/21 09/05/21 03:01 03:31 03:45 Temperature Pulse Rate 106 H 107 H 97 H Pulse Rate [ From Monitor] Respiratory 34 H 25 H 19 Rate Blood Pressure 76/47 157/110 157/110 O2 Sat by Pulse 96 Oximetry 09/05/21 09/05/21 09/05/21 04:00 04:01 04:15 Temperature 96.4 F L Pulse Rate 109 H 109 H Pulse Rate [ 100 H From Monitor] Respiratory 25 H 29 H Rate Blood Pressure 157/110 157/110 O2 Sat by Pulse 99 100 99 Oximetry 0609/05/21 09/05/21 04:30 04:45 05:01 Temperature Pulse Rate 108 H 106 H 108 H Pulse Rate [ From Monitor] Respiratory 39 H 26 H 24 Rate Blood Pressure 104/70 104/70 119/94 O2 Sat by Pulse 94 Oximetry 09/05/21 09/05/21 09/05/21 05:15 05:31 05:45 Temperature Pulse Rate 108 H 109 H 113 H Pulse Rate [ From Monitor] Respiratory 26 H 29 H 22 Rate Blood Pressure 119/94 83/56 70/47 O2 Sat by Pulse 97 Oximetry 09/05/21 09/05/21 09/05/21 06:00 06:15 06:45 Temperature Pulse Rate 111 H 111 H 114 H Pulse Rate [ From Monitor] Respiratory 31 H 26 H 24 Rate Blood Pressure 83/58 83/58 61/37 O2 Sat by Pulse 72 L Oximetry 09/05/21 09/05/21 09/05/21 07:01 07:15 08:01 Temperature Pulse Rate 120 H 118 H 110 H Pulse Rate [ From Monitor] Respiratory 30 H 31 H 24 Rate Blood Pressure 97/70 97/70 103/16 O2 Sat by Pulse Oximetry 09/05/21 09/05/21 09/05/21 08:15 08:31 08:45 Temperature Pulse Rate 107 H 105 H 102 H Pulse Rate [ From Monitor] Respiratory 28 H 30 H 30 H Rate Blood Pressure 103/16 132/15 132/15 O2 Sat by Pulse Oximetry 09/05/21 09/05/21 09/05/21 09:01 09:15 09:31 Temperature Pulse Rate 103 H 94 H 99 H Pulse Rate [ From Monitor] Respiratory 31 H 30 H 33 H Rate Blood Pressure 157/17 157/17 97/12 O2 Sat by Pulse 39 L Oximetry 09/05/21 09/05/21 09/05/21 09:45 10:00 10:01 Temperature Pulse Rate 118 H 105 H 105 H Pulse Rate [ From Monitor] Respiratory 25 H 29 H Rate Blood Pressure 152/98 152/98 152/98 O2 Sat by Pulse 51 L 0 L Oximetry 09/05/21 09/05/21 09/05/21 10:15 10:31 10:45 Temperature Pulse Rate 105 H 104 H 103 H Pulse Rate [ From Monitor] Respiratory 29 H 28 H 30 H Rate Blood Pressure 75/50 87/56 87/56 O2 Sat by Pulse 80 L 88 Oximetry 09/05/21 09/05/21 09/05/21 11:01 11:15 11:31 Temperature Pulse Rate 101 H 101 H 99 H Pulse Rate [ From Monitor] Respiratory 29 H 29 H 30 H Rate Blood Pressure 87/56 150/102 150/102 O2 Sat by Pulse 79 L Oximetry 09/05/21 09/05/21 11:45 12:01 Temperature Pulse Rate 98 H 97 H Pulse Rate [ From Monitor] Respiratory 30 H 30 H Rate Blood Pressure 155/27 47/29 O2 Sat by Pulse 70 L 94 Oximetry CBC and BMP: 09/05/21 13:50 09/05/21 04:10 ABG, PT/INR, D-dimer: ABG ABG pH 7.018 pH Units (7.350-7.450) L* 09/05/21 09:10 ABG pCO2 14.5 mm Hg 09/05/21 09:10 ABG pO2 130.1 mm Hg (80.0-90.0) H 09/05/21 09:10 ABG O2 Saturation 97.5 % (95.0-99.0) 09/05/21 09:10 Abnormal lab findings: Abnormal Labs 09/04/21 09/04/21 09/04/21 09:13 09:13 09:13 WBC RBC 3.42 L Hgb Hct RDW 21.5 H Seg Neuts % (Manual) 87.0 H Lymphocytes % (Manual) 10.0 L Nucleated RBC % Seg Neutrophils # Man Lymphocytes # (Manual) 0.8 L ABG pH ABG pO2 ABG HCO3 ABG Base Excess ABG Hemoglobin Sodium 133 L Potassium 3.1 L Carbon Dioxide 16 L BUN 63 H Creatinine 2.9 H Glucose 118 H Lactic Acid 2.90 H* Calcium 8.2 L Phosphorus Total Bilirubin 1.40 H Alkaline Phosphatase 135 H Total Creatine Kinase Troponin T 0.092 H C-Reactive Protein Albumin 1.7 L Cholesterol LDL Cholesterol Direct HDL Cholesterol Urine WBC (Auto) 09/04/21 09/04/21 09/04/21 09:13 10:13 12:25 WBC RBC Hgb Hct RDW Seg Neuts % (Manual) Lymphocytes % (Manual) Nucleated RBC % Seg Neutrophils # Man Lymphocytes # (Manual) ABG pH ABG pO2 ABG HCO3 ABG Base Excess ABG Hemoglobin Sodium Potassium Carbon Dioxide BUN Creatinine Glucose Lactic Acid 5.30 H* Calcium Phosphorus Total Bilirubin Alkaline Phosphatase Total Creatine Kinase 25 L Troponin T 0.046 H D C-Reactive Protein Albumin Cholesterol 34 L LDL Cholesterol Direct 9 L HDL Cholesterol 16 L Urine WBC (Auto) 09/04/21 09/04/21 09/04/21 13:17 22:18 23:10 WBC RBC Hgb Hct RDW Seg Neuts % (Manual) Lymphocytes % (Manual) Nucleated RBC % Seg Neutrophils # Man Lymphocytes # (Manual) ABG pH 7.332 L ABG pO2 106.6 H ABG HCO3 6.9 L ABG Base Excess -16.6 L ABG Hemoglobin 10.2 L Sodium Potassium Carbon Dioxide BUN Creatinine Glucose Lactic Acid 6.60 H* Calcium Phosphorus Total Bilirubin Alkaline Phosphatase Total Creatine Kinase Troponin T C-Reactive Protein Albumin Cholesterol LDL Cholesterol Direct HDL Cholesterol Urine WBC (Auto) > 182.0 H 09/05/21 09/05/21 09/05/21 04:10 04:10 04:33 WBC 20.6 H RBC 3.16 L Hgb 9.1 L Hct 28.7 L RDW 21.0 H Seg Neuts % (Manual) 87.0 H Lymphocytes % (Manual) 11.0 L Nucleated RBC % 2.0 H Seg Neutrophils # Man 17.9 H Lymphocytes # (Manual) ABG pH ABG pO2 122.5 H ABG HCO3 7.7 L ABG Base Excess -15.0 L ABG Hemoglobin 9.2 L Sodium Potassium Carbon Dioxide 12 L BUN 55 H Creatinine 2.6 H Glucose 159 H Lactic Acid Calcium 7.3 L Phosphorus 5.30 H Total Bilirubin Alkaline Phosphatase Total Creatine Kinase Troponin T 0.923 H* D C-Reactive Protein 9.90 H Albumin Cholesterol LDL Cholesterol Direct HDL Cholesterol Urine WBC (Auto) 09/05/21 09:10 WBC RBC Hgb Hct RDW Seg Neuts % (Manual) Lymphocytes % (Manual) Nucleated RBC % Seg Neutrophils # Man Lymphocytes # (Manual) ABG pH 7.018 L* ABG pO2 130.1 H ABG HCO3 3.6 L ABG Base Excess -25.3 L ABG Hemoglobin 8.6 L Sodium Potassium Carbon Dioxide BUN Creatinine Glucose Lactic Acid Calcium Phosphorus Total Bilirubin Alkaline Phosphatase Total Creatine Kinase Troponin T C-Reactive Protein Albumin Cholesterol LDL Cholesterol Direct HDL Cholesterol Urine WBC (Auto)
--- NOTE | 2021-09-05 13:17 | Procedure Note ---
Date of procedure: 09/05/21 Pre-op diagnosis: Septic Shock Post-op diagnosis: same Procedure: Left Femoral Arterial Line Placement Patient was evaluated and required arterial line placement for Hemodynanic monitoring due to high pressors requirement. Informed consent was obtained from patient's granddaughter, Trista Mike at . Consent was signed, witnessed, and placed in the chart A time-out was completed verifying correct patient, procedure, site, and positioning. Hand hygiene were performed immediately prior to the procedure and sterile technique was used throughout the procedure. The patients right groin was prepped with iodine and chlorhexidine scrub then draped in a sterile fashion. 1% Lidocaine was used to anesthetize the surrounding skin area. Then the right femoral artery was accessed using ultrasound guidance. Utilizing the Seldinger technique, a finder needle was inserted into the artery under ultrasound guidance, pulsating arterial blood return was obtained, then a guidewire was advanced easily into the artery. The catheter was then advanced over the wire and the needle and wire were withdrawn. The catheter was then connected to the quality assurance monitor final and zeroed, appropriate waveform and blood pressure tracing was observed on the monitor. The catheter was sutured in place, a Biopatch was placed at the insertion site and covered with a sterile dressing. The patient tolerated the procedure well and no complications noted. Total Time Spent with Patient (Minutes): 60 minutes Anesthesia: local Estimated blood loss: minimal Condition: critical Disposition: ICU
[2021-09-05 13:47] LABS: ABG Base Excess -21.9 mmol/L (-2.0-3.0); ABG HCO3 4.4 mmol/L (20.0-26.0); ABG Methemoglobin 0.5 % (0.0-1.5); ABG Oxygen Saturation 99.5 % (95.0-99.0); ABG PCO2 12.2 mm Hg
[2021-09-05] MEDS ORDERED: ALBUMIN HUMAN 5% (25 GM/500 ML) INJ IV ONE (13:50)
[2021-09-05] MEDS ORDERED: MEROPENEM/NS 500 MG/50 ML 500 MG/50 ML BAG IV SCH ×2 (14:00)
[2021-09-05] MEDS ORDERED: HYDROCORTISONE SOD SUCC 100 MG/2 ML VIAL IV SCH (14:00)
[2021-09-05 14:16] LABS: ABG PH 7.177 pH Units (7.350-7.450); ABG PO2 346.8 mm Hg (80.0-90.0)
[2021-09-05 14:18] LABS: Mean Corpuscular HGB Conc 30 % (30-34); Mean Corpuscular Volume 95 fl (79-97); Red Blood Count 1.81 M/mm3 (3.65-5.03)
[2021-09-05] MEDS ORDERED: DEXTROSE 50% IN WATER (25GM) 50 ML SYRINGE IV ONE (14:18)
[2021-09-05] MEDS ORDERED: EPINEPHrine 1 MG/10 ML SYRINGE ONE (14:18)
[2021-09-05] MEDS ORDERED: CALCIUM CHLORIDE 1,000 MG/10 ML SYRINGE IV ONE (14:18)
[2021-09-05 14:30] LABS: Hematocrit 17.2 % (30.3-42.9); Hemoglobin 5.2 gm/dl (10.1-14.3); Red Cell Distribution Width 21.4 % (13.2-15.2)
[2021-09-05 14:31] LABS: Platelet Count 63 K/mm3 (140-440)
[2021-09-05] MEDS ORDERED: SODIUM CHLORIDE 0.9% 1000 ML 1,000 ML IV ONE (14:40)
--- NOTE | 2021-09-05 14:57 | Event Note ---
Date: 09/05/21 Patient aubrey down in the 30s, then lost pulses. A code vishnu was called, CPR and ACLS were initiated per protocol, check code sheet for detail. ROSC achieved after multiple rounds of EPi, after approximately 20 minutes. Patient is now on 4 pressors- Levo, Vaso, Steven, EPi, and Bcarb gtt. Additional IVF bolus and 5% Albumin administered, repeat labs pending. Patient's family members are currently present in the waiting. Current events, patient's condition, and patient's overall poor prognosis were thoroughly discussed by the attending. Patient's family verbalized understanding and opted for AND/DNR status at this time. All paperworks were signed, witnessed, and placed in the chart. All questions and concerns were addressed at this time. +CCT 40minutes
--- NOTE | 2021-09-05 15:29 | Death Note ---
Note Date of : 09/05/21 Time of : 15:23 Time Pronounced: 15:23 (Patient following initial ROSC was made DNR by family. Unfortunately patient at 3:23pm. Family notified) - Preliminary Cause of (problem) (1) Acute kidney injury (ARETHA) with acute tubular necrosis (ATN) Preliminary cause of (2) Acute respiratory failure requiring reintubation Preliminary cause of (3) NSTEMI (non-ST elevated myocardial infarction) Preliminary cause of (4) Septic shock Preliminary cause of
[2021-09-05 15:46] VITALS: BP 102/63
--- NOTE | 2021-09-05 15:58 | Death Summary ---
Summary - Providers Date of service: 09/05/21 Consults: 09/04/21 10:50 Consult to Physician [CONS] Urgent Comment: Consulting Provider: SANDY MANRIQUEZ Physician Instructions: Reason For Exam: sepsis, acute renal failure Consult to Physician [CONS] Urgent Comment: Consulting Provider: HARVINDER MCLEAN Physician Instructions: Reason For Exam: sepsis, pneumonia, renal failure 09/04/21 11:41 Consult to Physician [CONS] Urgent Comment: Consulting Provider: GUILLE CARRINGTON Physician Instructions: Reason For Exam: septic shock 09/04/21 18:58 Speech Therapy Evaluation and Treat [CONS] Routine Reason For Exam: failed bedside swallow 09/05/21 07:43 Consult to Physician [CONS] Urgent Comment: Consulting Provider: VENKATA MACIAS Physician Instructions: Reason For Exam: NSTEMI Attending: ANA SHORE MD - summary Date of admission: 09/04/21 12:25 Date of : 09/05/21
[2021-09-05] MEDS ORDERED: CEFEPIME/NS 2 GM/100 ML 2 GM/100 ML BAG IV SCH (18:00)
[2021-09-05] MEDS ORDERED: VANCOMYCIN/NS 1 GM/250 ML 1 GM/250 ML BAG IV ONE (20:00)
--- NOTE | 2021-09-05 21:31 | Electrocardiograph Report ---
[facility] Test Date: 2021-09-04 Test Time: 12:14:02 Pat Name: DEBORAH ALAN Department: Room: A251 Gender: F Aquatics Coordinator: WINIFRED : 1945 Requested By: ARIS MARTINEZ Order Number: [id number] Reading MD: Alondra Brown Measurements Intervals [place] Rate: 86 P: 64 AR: 159 QRS: 14 QRSD: 72 T: -43 QT: 370 QTc: 442 Interpretive Statements Sinus rhythm Low voltage, precordial leads Compared to ECG 06/28/2021 09:29:17 No significant change Electronically Signed On 09-05-2021 21:31:42 EDT by Alondra Brown
--- NOTE | 2021-09-05 21:48 | Electrocardiograph Report ---
[facility] Test Date: 2021-09-05 Test Time: 11:35:50 Pat Name: DEBORAH ALAN Department: Room: A251 1 Gender: F Production Planning Manager: JENAE : 1945 Requested By: OZIEL DAWN Order Number: [id number] Reading MD: Alondra Brown Measurements Intervals [place] Rate: 98 P: 58 FL: 174 QRS: -13 QRSD: 73 T: 36 QT: 375 QTc: 479 Interpretive Statements Sinus rhythm Low voltage, extremity and precordial leads Compared to ECG 09/04/2021 12:14:02 No significant changes Electronically Signed On 09-05-2021 21:47:52 EDT by Alondra Brown
== END 2021-09-05 15:23 | DRG 871 ==
LOC: ED 07:20 → CC1 12:25
PROVIDERS: ADMIT Internal Medicine; ATTEND Internal Medicine
PROC: 06HM33Z Insertion of Infusion Device into Right Femoral Vein, Percutaneous Approach (ICD-10-PCS; principal; 2021-09-04)
PROC: B54BZZA Ultrasonography of Right Lower Extremity Veins, Guidance (ICD-10-PCS; 2021-09-04)
PROC: 06HN33Z Insertion of Infusion Device into Left Femoral Vein, Percutaneous Approach (ICD-10-PCS; 2021-09-04)
PROC: B54CZZA Ultrasonography of Left Lower Extremity Veins, Guidance (ICD-10-PCS; 2021-09-04)
PROC: 4A033R1 Measurement of Arterial Saturation, Peripheral, Percutaneous Approach (ICD-10-PCS; 2021-09-04)
PROC: 04HL33Z Insertion of Infusion Device into Left Femoral Artery, Percutaneous Approach (ICD-10-PCS; 2021-09-05)
PROC: B34JZZZ Ultrasonography of Left Upper Extremity Arteries (ICD-10-PCS; 2021-09-05)
PROC: 5A12012 Performance of Cardiac Output, Single, Manual (ICD-10-PCS; 2021-09-05)
PROC: 5A1935Z Respiratory Ventilation, Less than 24 Consecutive Hours (ICD-10-PCS; 2021-09-05)
PROC: 0BH17EZ Insertion of Endotracheal Airway into Trachea, Via Natural or Artificial Opening (ICD-10-PCS; 2021-09-05)
DX: A41.9 Sepsis, unspecified organism (principal); G92.8 Other toxic encephalopathy; J69.0 Pneumonitis due to inhalation of food and vomit; R65.21 Severe sepsis with septic shock; N17.0 Acute kidney failure with tubular necrosis; I21.4 Non-ST elevation (NSTEMI) myocardial infarction; J96.01 Acute respiratory failure with hypoxia; E43 Unspecified severe protein-calorie malnutrition; K21.9 Gastro-esophageal reflux disease without esophagitis; F32.A Depression, unspecified; I10 Essential (primary) hypertension; E87.6 Hypokalemia; I67.2 Cerebral atherosclerosis; E86.9 Volume depletion, unspecified; N39.0 Urinary tract infection, site not specified; R13.10 Dysphagia, unspecified; Z86.73 Personal history of transient ischemic attack (TIA), and cerebral infarction without residual deficits; Z82.49 Family history of ischemic heart disease and other diseases of the circulatory system; Z68.23 Body mass index [BMI] 23.0-23.9, adult; Z88.8 Allergy status to other drugs, medicaments and biological substances; Z66 Do not resuscitate
CPT/HCPCS: 36415; 36600; 70450; 71045; 74176; 80048; 80053; 80061; 80202; 81001; 82140; 82550; 82553; 82803; 83735; 84100; 84145; 84484; 85007; 85025; 85027; 85730; 86140; 86850; 86900; 86901; 87040; 87070; 87086; 87205; 93005; 93306; 94002; 94003; G0378; J2354; J3490; C8929; J0171; J0330; J0692; J1720; J2310; J2370; J3370; J3480; J7030; J7040; J7050; P9045